=== PATIENT | female | born 1955 | race African-American/Black ===

== ENCOUNTER 2023-02-27 15:20 | Emergency (ER) | payer MEDICARE ==
[2023-02-27 15:29] VITALS: BP 139/74
[2023-02-27 16:51] LABS: HCT - HEMATOCRIT 36.4 % (37.0-47.0); HGB - HEMOGLOBIN 11.9 g/dL (12.0-16.0)
--- NOTE | 2023-02-27 17:00 | ED Physician Documentation ---
History of Present Illness - Stated complaint Stated Complaint: FEMALE - Chief complaint Chief Complaint: General - History obtained from History obtained from: Patient - Additonal information Additional information: 67-year-old woman on aspirin and Xarelto who has had a bleeding hemorrhoid for 6 days. Its not particularly painful and it only really bleeds when she has a bowel movement or micturates, but she started to feel little weak from it. PD PAST MEDICAL HISTORY - Allergies Allergies/Adverse Reactions: Allergies Allergy/AdvReac Type Severity Reaction Status Date / Time No Known Drug Allergies Allergy Verified 02/27/23 15:24 PD ED PE NORMAL - Vitals Vital signs reviewed: Yes - General General: Alert and oriented X 3, No acute distress - Abdomen Abdomen: Non tender - Rectal Rectal: Other (She does have a couple of large hemorrhoids with sequela of active bleeding but they do not look thrombosed. This was done with Alana DAVE present and chaperoning.) - Neuro Neuro: Alert and oriented X 3, Normal speech Results - Vitals Vitals: Vital Signs - 24 hr 02/27/23 15:24 Temperature 36.8 C Heart Rate 68 Respiratory 16 Rate Blood Pressure 139/74 H O2 Saturation 100 Oxygen O2 Source Room air - Labs Labs: Laboratory Tests 02/27/23 16:48 Hgb 11.9 L Hct 36.4 L PD Medical Decision Making - ED course ED course: 67-year-old woman who is anticoagulated presents with bleeding hemorrhoids. H&H is reassuring. Case discussed with Dr. Cramer who recommends follow-up in clinic for evaluation for banding. Departure - Departure Disposition: Home, Self Care Clinical Impression: Bleeding hemorrhoids Condition: Good Record reviewed to determine appropriate education?: Yes Instructions: ED Hematochezia Stable Follow-Up: [facility] [Provider Group] Comments: Your blood counts are reassuring and not dangerous. You should follow-up in the clinic, call Thursday for an appointment. They will assess you and may want you to stop your Xarelto prior to a trip to the operating room for banding of the hemorrhoids. Return if worse. Forms: PCP List
== END 2023-02-27 17:11 | disposition home or self-care (01) ==
LOC: ED 15:20
DX: K64.9 Unspecified hemorrhoids (principal)
CPT/HCPCS: 36415; 85014; 85018; 99283

== ENCOUNTER 2024-08-19 13:30 | Observation (INO) ==
--- NOTE | 2024-08-19 15:27 | XRAY Report ---
PROCEDURE: XR Chest 1V INDICATIONS: dizziness, sob TECHNIQUE: One view of the chest was acquired. COMPARISON: None. FINDINGS: Surgical changes and devices: None. Lungs and pleura: No pleural effusions or pneumothorax. No consolidation. Mediastinum: Aortic arch calcifications. Mediastinal contours otherwise appear normal. Heart size i s normal. Bones and chest wall: No suspicious bony lesions. Overlying soft tissues appear unremarkable. IMPRESSION: No acute cardiothoracic process. Reviewed by: Jigar Aranda MD on 08/19/2024 3:25 PM PST Approved by: Jigar Aranda MD on 08/19/2024 3:25 PM PST Station ID: [id number]
[2024-08-19 15:32] LABS: BASOPHILS % (AUTO) 0.4 %; EOSINOPHILS % (AUTO) 0.7 %; HCT - HEMATOCRIT 38.7 % (37.0-47.0); HGB - HEMOGLOBIN 12.4 g/dL (12.0-16.0); LYMPHOCYTES % (AUTO) 17.8 %; MEAN CORPUSCULAR HEMOGLOBIN 34.3 pg (27.0-31.0); MEAN CORPUSCULAR VOLUME 107.2 fL (81.0-99.0); MEAN PLATELET VOLUME 10.1 fL (7.9-10.8); MONOCYTES # (AUTO) 0.5 10^3/uL (0.0-1.0); MONOCYTES % (AUTO) 9.7 %; NEUTROPHILS # (AUTO) 3.8 10^3/uL (1.5-6.6); PLT - PLATELET COUNT 195 10^3/uL (130-450); RED BLOOD COUNT 3.61 10^6/uL (4.20-5.40); RED CELL DISTRIBUTION WIDTH 14.2 % (12.0-15.0); WHITE BLOOD COUNT 5.3 x10^3/uL (4.8-10.8)
--- NOTE | 2024-08-19 15:39 | ED Physician Documentation ---
History of Present Illness Stated complaint Stated Complaint: DIZZY,UNWELL Chief complaint Chief Complaint: Neuro History obtained from History obtained from: Patient History of Present Illness Timing: Prior to arrival Additonal information Additional information: Patient is a 62-year-old female presenting to the emergency department with feeling dizzy and nauseous with some diarrhea going on the last 2 to 3 days. Patient has past medical history of hypertension type 2 diabetes history of stroke and coronary artery disease. Patient symptoms seemed worse this morning she notes she fell over no injuries after trying to get up and feeling very dizzy with her symptoms. She denies ever having symptoms this severe before. She has a history of CVA with chronic left upper extremity weakness. Meds/Allgy Home Medications Ambulatory Orders Medication Instructions Recorded Confirmed amlodipine 10 mg tablet mg 08/19/24 atorvastatin 20 mg tablet mg 08/19/24 gabapentin 300 mg capsule mg 08/19/24 hydralazine 25 mg tablet mg 08/19/24 lisinopril 40 mg tablet mg 08/19/24 metformin 1,000 mg tablet mg 08/19/24 methotrexate sodium 2.5 mg tablet mg 08/19/24 metoprolol tartrate 100 mg tablet mg 08/19/24 pantoprazole 40 mg tablet,delayed mg PO 08/19/24 release rivaroxaban 10 mg tablet (Xarelto) mg 08/19/24 sarilumab 200 mg/1.14 mL mg subcut 08/19/24 subcutaneous syringe (Kevzara) sitagliptin phosphate 100 mg mg 08/19/24 tablet (Januvia) Allergies Allergies Allergy/AdvReac Type Severity Reaction Status Date / Time No Known Drug Allergies Allergy Verified 08/19/24 13:41 [facility] Medical History Medical History (Updated 08/19/24 @ 17:27 by Kelvin Vee MD) Diabetes mellitus type 2, controlled Hyperlipidemia Rheumatoid arthritis Hypertension CVA (cerebral vascular accident) Social History Social History Smoking Status: Smoker current status unk Relationship: Do you feel safe in your home environment?: Yes Suffered physical, verbal, emotional, or financial abuse?: No POLST Patient has POLST: No Exam Constitutional normal general appearance HENMT normocephalic and head/scalp atraumatic Eyes PERRL, EOMs intact bilaterally and conjunctivae normal Neck/C-Spine visual inspection normal Lymph no lymphadenopathy noted Chest inspection of chest normal Respiratory breath sounds equal bilaterally and normal respiratory effort Results Vitals Vitals: Vital Signs - 24 hr 08/19/24 13:41 08/19/24 15:23 08/19/24 15:59 Temperature 36.5 C Temperature Source Tympanic Pulse Rate 87 84 Pulse Rate [Sitting] 82 Pulse Rate [Standing] 98 Pulse Rate [Supine] 92 Respiratory Rate 18 20 Blood Pressure 124/76 116/84 Blood Pressure [Sitting] 133/68 H Blood Pressure [Standing] 136/66 H Blood Pressure [Supine] 106/71 O2 Saturation 99 98 O2 Source Room air Room air Pain Intensity 0 0 Oxygen O2 Source Room air Labs Labs: Laboratory Tests 08/19/24 15:26 WBC 5.3 RBC 3.61 L Hgb 12.4 Hct 38.7 MCV 107.2 H MCH 34.3 H MCHC 32.0 RDW 14.2 Plt Count 195 MPV 10.1 Neut # (Auto) 3.8 Lymph # (Auto) 1.0 L Ed[place] # (Auto) 0.5 Eos # (Auto) 0.0 Baso # (Auto) 0.0 Absolute Nucleated RBC 0.00 Nucleated RBC % 0.0 Sodium 136 Potassium 3.9 Chloride 107 Carbon Dioxide 22 Anion Gap 7.0 BUN 19 Creatinine 1.1 Estimated GFR (MDRD) 60 L Glucose 106 H Calcium 9.3 Magnesium < 0.5 L* Total Bilirubin 0.5 AST 19 ALT 12 Alkaline Phosphatase 33 L Total Protein 6.2 L Albumin 4.1 Globulin 2.1 Albumin/Globulin Ratio 2.0 Lipase < 10 L PD Medical Decision Making ED course Complexity details: reviewed old records and reviewed results ED course: Patient is a 68-year-old female presenting to the emergency department with generalized feeling of unwell she notes that has been going on for a few days accompanied with dizziness only with standing and feeling unstable when walking. She notes she feels as if she is going to fall over. She notes prior to coming in she had an episode where she lost her balance and fell over. She does describe some room spinning but no lightheadedness issues with her symptoms. She has some nausea vomiting and diarrhea that this morning and it caused worsening feelings of generalized unwell. Vitals here in the emergency department are reassuring patient is normotensive afebrile nontachycardic. She has a history of hypertension diabetes coronary artery disease and weakness associated with her symptoms. Physical exam shows no new focal deficit patient denies any symptoms at this time just generalized fatigue and feeling unwell. EKG stable here in the emergency department no prolonged QTc. Labs remarkable here for significant hypomagnesemia less than 0.5. This could be secondary to patient's nausea or vomiting and diarrhea. She notes she previously took magnesium few years ago. No history of alcohol use and her potassium levels and other electrolytes are stable here in the ED. Magnesium and fluids started here in the ED orthostatics were negative. I did discuss with on-call hospitalist Dr. Rojas who is agreement to except patient at this time. We did discuss concern for possible ischemia or stroke given dizziness symptoms but they are not occurring at this time and patient only has feelings of general unwell as opposed to findings consistent with stroke at this time. Patient notes she is feeling a little better after fluids and magnesium were begun here in the ED. Discharge Plan Discharge Patient Disposition: 65 [facility] DC/Xfer Condition: Stable Clinical Impression: Hypomagnesemia, Dizziness, Intermittent lightheadedness
[2024-08-19 15:47] LABS: ALBUMIN 4.1 g/dL (3.2-5.5); ALKALINE PHOSPHATASE 33 IU/L (42-121); ALT ALANINE AMINOTRANSFERASE 12 IU/L (10-60); AST ASPARTATE AMINOTRANSFERASE 19 IU/L (10-42); BILIRUBIN,TOTAL 0.5 mg/dL (0.2-1.0); BUN - BLOOD UREA NITROGEN 19 mg/dL (6-20); CALCIUM 9.3 mg/dL (8.5-10.3); CARBON DIOXIDE - CO2 22 mmol/L (21-32); CHLORIDE 107 mmol/L (101-111); CREATININE 1.1 mg/dL (0.6-1.3); GFR - MDRD 60 (>89); GLUCOSE 106 mg/dL (74-104); POTASSIUM 3.9 mmol/L (3.5-4.5); SODIUM 136 mmol/L (135-145); TOTAL PROTEIN 6.2 g/dL (6.4-8.9)
[2024-08-19 15:50] LABS: MAGNESIUM < 0.5 mg/dL (1.7-2.3)
--- NOTE | 2024-08-19 16:32 | ED Physician Documentation ---
ED Addendum Addendum Addendum: She was difficult for IV access and the nurse asked me to place an IV. I placed a long 22-gauge IV in the right cephalic vein after real-time ultrasound guidance and ChloraPrep which flushed and milton well. I was not otherwise involved in this patient's care. Discharge Plan Discharge Patient Disposition: 65 [facility] DC/Xfer Condition: Stable Clinical Impression: Hypomagnesemia, Dizziness, Intermittent lightheadedness Print Language: Ecuadorean
[2024-08-19] MEDS: LACTATED RINGERS 1,000 ML IV STA (16:33)
[2024-08-19] MEDS: MAGNESIUM SULFATE 2 GRAM 2 GM/50 ML BAG IV ONE (16:33)
--- NOTE | 2024-08-19 16:39 | HISTORY & PHYSICAL EXAMINATION ---
Chief Complaint Chief Complaint Chief Complaint: Dizziness History of Present Illness Admitted From Admitted From:: [facility] History Obtained From Records Reviewed: Yes History obtained from: Patient, patient's son at bedside Exam Limitations: None History of Present Illness HPI Comment/Other: Patient is a 68-year-old female with a history of CVA x 2 with residual right- sided weakness, on Xarelto, diabetes mellitus who presents for dizziness, as well as a fall. She states that she has on and off dizziness. For the past 2 to 3 days, it has been a little bit worse. She states it is a constant feeling. Sometimes it is worsened by her standing up. She has been eating and drinking about the same amount. She has a history of loose bowel movements. She did have a larger loose bowel movement this morning. She described it as nonbloody. She has no abdominal pain. She was previously on magnesium supplementation, but has not been taking it for many years. Since being in the emergency room, she has been feeling better. She has no dizziness at the time of exam. At this time, she denies any fevers, chills, shortness of breath, chest pain. On admission, patient's blood pressure was 124/76, heart rate was 87, she is saturating 99% on room air, and was afebrile. CBC showed no leukocytosis. Her hemoglobin was stable around 12.4. BMP showed a normal creatinine of 1.1, her potassium was 3.9. Her glucose was 106. Her alkaline phosphatase was 33, her lipase was less than 10. Magnesium was found to be less than 0.5. A chest x- ray was done which showed no acute cardiothoracic process. A CT head is ordered, remains pending. She received 2 mg of magnesium. She also received a liter of IV fluids. Orthostatic vital signs are ordered, remain pending. Decision was made to admit her for hypomagnesemia, and closer monitoring of her electrolytes. She was placed in observation status. Meds/Allgy Home Medications Ambulatory Orders Medication Instructions Recorded Confirmed amlodipine 10 mg tablet mg 08/19/24 atorvastatin 20 mg tablet mg 08/19/24 gabapentin 300 mg capsule mg 08/19/24 hydralazine 25 mg tablet mg 08/19/24 lisinopril 40 mg tablet mg 08/19/24 metformin 1,000 mg tablet mg 08/19/24 methotrexate sodium 2.5 mg tablet mg 08/19/24 metoprolol tartrate 100 mg tablet mg 08/19/24 pantoprazole 40 mg tablet,delayed mg PO 08/19/24 release rivaroxaban 10 mg tablet (Xarelto) mg 08/19/24 sarilumab 200 mg/1.14 mL mg subcut 08/19/24 subcutaneous syringe (Kevzara) sitagliptin phosphate 100 mg mg 08/19/24 tablet (Januvia) Allergies Allergies Allergy/AdvReac Type Severity Reaction Status Date / Time No Known Drug Allergies Allergy Verified 08/19/24 13:41 [facility] Medical History Medical History (Updated 08/19/24 @ 17:27 by Kelvin Vee MD) Diabetes mellitus type 2, controlled Hyperlipidemia Rheumatoid arthritis Hypertension CVA (cerebral vascular accident) Social History Social History (Updated 08/19/24 @ 17:31 by Vicky Devine PA-C) Smoking Status: Smoker current status unk Relationship: Do you feel safe in your home environment?: Yes Suffered physical, verbal, emotional, or financial abuse?: No POLST Patient has POLST: Yes POLST Status: DNR Review of Systems Constitutional Reports: Fatigue, Malaise and Weakness; Denies: Fever, Chills, Diaphoresis, Night sweats, Changes in appetite or eating habits, Poor appetite, Weight gain or Weight loss Eyes Denies: Pain, Irritation, Amaurosis, Blurry vision, Floaters, Field loss or Vision loss Ears, nose, mouth, and throat Denies: Ear pain, Ear discharge, Hearing loss, Hearing aids, Tinnitus, Change in hearing, Nasal pain, Nose bleeds, Vertigo or Neck pain Cardiovascular Denies: Irregular heart rate, chest pain, palpitations, edema, swelling of feet/ankles, Syncope, lightheadedness or shortness of breath with exertion Respiratory Denies: Shortness of breath, Cough, Sputum production, Change in phlegm color, Wheezing or Apnea Gastrointestinal Reports: Diarrhea and Change in stool character; Denies: Abdominal pain, Abdominal distention, Nausea, Vomiting, Poor appetite, Bile emesis or Change in bowel habits Genitourinary Denies: Painful urination, Urinary frequency, Urinary urgency, Nocturia or Urinary incontinence Musculoskeletal Reports: Joint pain (chronic due to RA); Denies: Back pain, Neck pain, Extremity pain, Extremity swelling or Gout Integumentary/Breast Denies: Rash, Itching, Dryness, Redness, Skin pain or Skin tenderness Neurological Reports: General weakness and Dizziness; Denies: Headache, Focal weakness, Weakness in extremities, Numbness in extremities, Lack of coordination or Vertigo Psychiatric Denies: Depression, Anxiety, Mood swings, Panic attacks or Change in sleep pattern Endocrine Reports: Fatigue; Denies: Excessive urination, Excessive thirst, Polyphagia, Cold intolerance or Excessive sweating Hematologic/Lymphatic Denies: Anemia, Easy bruising or Petechiae Allergic/Immunologic Denies: Hives or Wheezing Prior Level of Functionality: Ambulates with walker. Lives in Assisted Living. Exam Constitutional normal general appearance, no apparent distress, average body habitus and no limitations HENMT normocephalic, head/scalp atraumatic, hearing grossly normal bilaterally, external ears normal and oropharynx normal Eyes PERRL, EOMs intact bilaterally, conjunctivae normal and no scleral icterus Lymph no lymphadenopathy noted and no lymphedema noted Chest inspection of chest normal Respiratory breath sounds equal bilaterally, normal respiratory effort, clear to auscultation bilaterally, no wheezes, no rales and no retractions Cardiovascular normal heart rate noted, regular rhythm noted, no gallop, no rub, no murmur and no JVD Gastrointestinal abdomen normal to inspection, abdomen soft to palpation, nontender to palpation and nondistended Genitourinary no CVA tenderness and bladder normal to palpation Back/Pelvis spine normal to inspection and no thoracic spine tenderness Extremities normal to inspection, normal to palpation, no tenderness and full ROM Neurology RUE 4/5 in strength, slight contracture noted, R hand with decreased change lead strength, RLE 5/5 in strength; LUE and LLE 5/5 in strength; no dysdiadokinesia or dysmetria noted Psychiatry mental status grossly normal, oriented x3, thought process normal and cooperative Skin skin color normal, no rash, no lesions and no ecchymosis noted Conclusion/Plan Problem List (1) Hypomagnesemia: Plan: Severe hypomagnesemia noted. IV magnesium ordered. Repeat pending for later. Replete as needed. Likely will need discharge on oral magnesium. (2) Intermittent lightheadedness: Plan: Patient with longstanding intermittent lightheadedness. Has large, loose bowel movements regularly. Dizziness has now resolved. Received IV fluids. Eating and drinking adequately. No dysmetria, dysdiadokinesia. Less likely cerebellar stroke. CT head ordered, no acute abnormalities noted. (3) Diabetes mellitus type 2, controlled: Plan: Continue low-dose sliding scale while inpatient, hypoglycemia protocol in place. Patient takes metformin and sitagliptin in the outpatient setting. Qualifiers: Diabetes mellitus complication status: with unspecified complications D iabetes mellitus penitentiary insulin use: without extermination inspector use Qualified Code(s): E11.8 - Type 2 diabetes mellitus with unspecified complications (4) Hyperlipidemia: Plan: Continue statin. Qualifiers: Hyperlipidemia type: unspecified Qualified Code(s): E78.5 - Hyperlipidemia, unspecified (5) Rheumatoid arthritis: Plan: Continue Kevzara once every 2 weeks in the outpatient setting, as well as [id number] mg once a week as prescribed. Qualifiers: Rheumatoid arthritis location: unspecified site Rheumatoid factor presence: unspecified presence Qualified Code(s): M06.9 - Rheumatoid arthritis, unspecified (6) Hypertension: Plan: Continue metoprolol, hydralazine, lisinopril, amlodipine. Qualifiers: Hypertension type: unspecified Qualified Code(s): I10 - Essential (primary) hypertension (7) CVA (cerebral vascular accident): Plan: Continue Xarelto, gabapentin, statin. Qualifiers: CVA mechanism: unspecified Qualified Code(s): I63.9 - Cerebral infarction, unspecified Lab Results Lab results reviewed: Yes 08/19/24 15:26 08/19/24 15:26 Diagnostic Imaging Results Diagnostic Imaging Results: positive Final report reviewed
[2024-08-19] MEDS ORDERED: SODIUM CHLORIDE FLUSH 0.9% 10 ML SYRINGE IVP PRN (17:49)
--- NOTE | 2024-08-19 17:54 | CT Report ---
PROCEDURE: CT Head WO INDICATIONS: fall on xarelto TECHNIQUE: Noncontrast 4.5 mm thick angled axial sections acquired from the foramen magnum to the vertex. For r adiation dose reduction, the following was used: automated exposure control, adjustment of mA and/or kV according to patient size. COMPARISON: None. FINDINGS: Image quality: Excellent. CSF spaces: Basal cisterns are patent. No extra-axial fluid collections. Ventricles are normal in size and shape. Brain: No midline shift. No intracranial masses or hemorrhage. Cyr-white matter interface is norm al. Remote right MCA territory infarct with encephalomalacia/gliosis. Skull and face: Calvarium and visualized facial bones are intact, without suspicious lesions. Sinuses: Visualized sinuses and mastoids are clear. IMPRESSION: No acute intracranial pathology. Reviewed by: Dane Painter MD on 08/19/2024 5:53 PM PST Approved by: Dane Painter MD on 08/19/2024 5:53 PM [facility] Station ID: [id number]
[2024-08-19] MEDS: INSULIN LISPRO 300 UNIT/3 ML PEN SUBQ SCH (18:53)
[2024-08-19] MEDS: MAGNESIUM SULFATE 2 GRAM 4 GM/100 ML BAG IV ONE (21:39)
[2024-08-19] MEDS: SODIUM CHLORIDE FLUSH 0.9% 10 ML SYRINGE IVP SCH (21:40)
[2024-08-19] MEDS ORDERED: METOPROLOL 5 MG/5 ML VIAL IVP PRN (22:13)
[2024-08-19] MEDS: MAGNESIUM OXIDE 400 MG TABLET PO SCH (22:35)
[2024-08-19 23:11] LABS: BILIRUBIN,URINE NEGATIVE (NEGATIVE); GLUCOSE, URINE (UA) NEGATIVE (NEGATIVE); KETONES,URINE (UA) NEGATIVE (NEGATIVE); LEUKOCYTE ESTERASE, URINE LARGE (NEGATIVE); NITRITE,URINE NEGATIVE (NEGATIVE); OCCULT BLOOD,URINE MODERATE (NEGATIVE); PROTEIN,URINE 30 mg/dL (NEGATIVE); UROBILINOGEN,URINE 0.2 (NORMAL) E.U./dL (NORMAL)
[2024-08-19 23:20] LABS: CLARITY,URINE SL. CLOUDY (CLEAR)
[2024-08-19 23:21] LABS: BACTERIA,URINE Many /HPF (None Seen); RBC,URINE TNTC /HPF (0-5); SQUAMOUS EPITHELIAL CELL,UR MANY Squamous (<= Few); TRICHOMONAS,URINE PRESENT (None Seen); WBC,URINE >25 /HPF (0-5)
[2024-08-20] MEDS: MAGNESIUM OXIDE 400 MG TABLET PO STA ×2 (00:24→04:14)
[2024-08-20] MEDS: METOPROLOL TARTRATE 25 MG TABLET PO STA (02:00)
[2024-08-20 03:10] LABS: HCT - HEMATOCRIT 33.8 % (37.0-47.0); HGB - HEMOGLOBIN 11.2 g/dL (12.0-16.0); MEAN CORPUSCULAR HEMOGLOBIN 34.5 pg (27.0-31.0); MEAN CORPUSCULAR HGB CONC 33.1 g/dL (32.0-36.0); RED BLOOD COUNT 3.25 10^6/uL (4.20-5.40); WHITE BLOOD COUNT 4.5 x10^3/uL (4.8-10.8)
[2024-08-20 03:24] LABS: CALCIUM 9.3 mg/dL (8.5-10.3); CREATININE 1.2 mg/dL (0.6-1.3); POTASSIUM 3.5 mmol/L (3.5-4.5)
[2024-08-20 03:29] LABS: MAGNESIUM 0.6 mg/dL (1.7-2.3)
[2024-08-20] MEDS: MAGNESIUM SULFATE 2 GRAM 2 GM/50 ML BAG IV ONE ×2 (06:50→10:55)
[2024-08-20 07:45] VITALS: O2SAT 97
[2024-08-20] MEDS: amLODIPine 5 MG TABLET PO SCH (08:27)
[2024-08-20] MEDS: MAGNESIUM OXIDE 400 MG TABLET PO ONE (08:28)
[2024-08-20] MEDS: METOPROLOL TARTRATE 50 MG TABLET PO SCH (08:28)
[2024-08-20] MEDS: GABAPENTIN 300 MG CAPSULE PO SCH (08:28)
[2024-08-20] MEDS: APIXABAN 2.5 MG TABLET PO SCH (08:29)
[2024-08-20] MEDS: PANTOPRAZOLE 40 MG TABLET PO SCH (08:31)
--- NOTE | 2024-08-20 09:08 | PHARMACY PROGRESS NOTE ---
Best Possible Medication History Admit Date and Time: 08/19/24 1631 Home Medications Medication Instructions Recorded Confirmed Type amlodipine 10 mg tablet 10 mg PO DAILY 08/19/24 08/20/24 History atorvastatin 20 mg tablet 20 mg PO QPM 08/19/24 08/20/24 History gabapentin 300 mg capsule 300 mg PO BID 08/19/24 08/20/24 History hydralazine 25 mg tablet 25 mg PO BID 08/19/24 08/20/24 History lisinopril 40 mg tablet 40 mg PO DAILY 08/19/24 08/20/24 History metformin 1,000 mg tablet 1,000 mg PO BIDWM 08/19/24 08/20/24 History methotrexate sodium 2.5 mg tablet 15 mg PO WE 08/19/24 08/20/24 History metoprolol tartrate 100 mg tablet 100 mg PO BID 08/19/24 08/20/24 History pantoprazole 40 mg tablet,delayed 40 mg PO DAILY 08/19/24 08/20/24 History release rivaroxaban 10 mg tablet (Xarelto) 10 mg PO DAILY 08/19/24 08/20/24 History sarilumab 200 mg/1.14 mL 200 mg subcut Q14D 08/19/24 08/20/24 History subcutaneous syringe (Kevzara) sitagliptin phosphate 100 mg 100 mg PO DAILY 08/19/24 08/20/24 History tablet (Januvia) ferrous sulfate 325 mg (65 mg 325 mg PO DAILY 08/20/24 08/20/24 History iron) tablet (FeroSul) loratadine 10 mg tablet 10 mg PO DAILY 08/20/24 08/20/24 History (Allerclear) omega 4-enf-uua-fish oil 100 2 cap PO DAILY 08/20/24 08/20/24 History mg-160 mg-1,000 mg capsule (Fish Oil) vitamin B complex (Balanced B-50 1 tab PO DAILY 08/20/24 08/20/24 History tablet) Processed by: Pharmacy Medications reviewed in ED?: No Medication History completed: Yes Patient Interview: Completed Secondary Source(s): Written medication list, Pharmacy records and Insurance records [facility] Statement: As the person ultimately responsible for medication therapy, providers are able to order a medication from an existing home medication list in [facility] via the "Reconcile Routine" prior to Confirmation of that medication by collection support specialist. Such practice is discouraged except when the physician, in their clinical judgment, deems that a medical need exists for a medication without regard to previous use.
[2024-08-20] MEDS: lisinopriL 20 MG TABLET PO SCH (10:02)
[2024-08-20] MEDS: hydrALAZINE 25 MG TABLET PO SCH (10:03)
[2024-08-20] MEDS ORDERED: MAGNESIUM SULFATE 1 GM/2 ML VIAL IVP STA (10:43)
--- NOTE | 2024-08-20 11:01 | Discharge Summary ---
"Discharge Summary Admit Date: 08/19/24 Discharge Date: 08/20/24 Discharging Provider: Dr. Vee Primary Care Provider: CHARLIE Hodge Code Status: Do Not Attempt Resuscitation Discharge Facility Name: [facility] DIAGNOSES Admission Diagnoses: Hypomagnesemia Intermittent lightheadedness Diabetes mellitus type 2, controlled Hyperlipidemia Rheumatoid arthritis Hypertension CVA x 2 in the past Discharge Diagnoses with Status of Each Condition: Hypomagnesemiareceived aggressive replacement, resolved. Will discharge her home on magnesium oxide 400 mg daily. Intermittent lightheadednesslikely due to above electrolyte disturbances versus borderline lownormal blood pressures. I have stopped her hydralazine. Advised to follow-up with the primary care physician in approximately 1 to 2 weeks to recheck her blood pressure. She may need more down titration of her antihypertensives. Type 2 diabetes mellituscontinue metformin and sitagliptin. Hyperlipidemiacontinue statin. Rheumatoid arthritiscontinue Kevzara, methotrexate. Hypertensioncontinue metoprolol, lisinopril, amlodipine at this time. I have stopped hydralazine. She may require stopping of amlodipine as well as she has been running low normal while being here. CVAcontinue Xarelto, gabapentin, statin. HPI History of Present Illness: Patient is a 68-year-old female with a history of CVA x 2 with residual right- sided weakness, on Xarelto, diabetes mellitus who presents for dizziness, as well as a fall. She states that she has on and off dizziness. For the past 2 to 3 days, it has been a little bit worse. She states it is a constant feeling. Sometimes it is worsened by her standing up. She has been eating and drinking about the same amount. She has a history of loose bowel movements. She did have a larger loose bowel movement this morning. She described it as nonbloody. She has no abdominal pain. She was previously on magnesium supplementation, but has not been taking it for many years. Since being in the emergency room, she has been feeling better. She has no dizziness at the time of exam. At this time, she denies any fevers, chills, shortness of breath, chest pain. On admission, patient's blood pressure was 124/76, heart rate was 87, she is saturating 99% on room air, and was afebrile. CBC showed no leukocytosis. Her hemoglobin was stable around 12.4. BMP showed a normal creatinine of 1.1, her potassium was 3.9. Her glucose was 106. Her alkaline phosphatase was 33, her lipase was less than 10. Magnesium was found to be less than 0.5. A chest x- ray was done which showed no acute cardiothoracic process. A CT head is ordered, remains pending. She received 2 mg of magnesium. She also received a liter of IV fluids. Orthostatic vital signs are ordered, remain pending. Decision was made to admit her for hypomagnesemia, and closer monitoring of her electrolytes. She was placed in observation status. CONSULTS | PROCEDURES Consultations: - Procedures: CT head HOSPITAL COURSE Hospital Course: Patient is a 68-year-old female with a history of 2 CVAs who presented with intermittent dizziness, as well as a fall. She was found to have very low magnesium, less than 0.5. This was aggressively repleted. This improved to 1.7 on discharge. Will continue with oral magnesium on discharge. A CT head was also done, which did not show any acute bleed. Blood pressure was found to be low-normal while here. I have stopped her hydralazine. She may need further down titration of her antihypertensives. She is taking metoprolol, lisinopril, amlodipine currently. Advised to follow with a primary care doctor in the next 1 to 2 weeks, check her blood pressure at home. If it is running low, hold her amlodipine. Her son was at bedside when this was explained, and they both demonstrated understanding. Her dizziness has improved. She is eating and drinking well. She has had no more diarrhea or large bowel movements. Overall, she is safe to discharge back to her assisted living. ALLERGIES Allergies Allergy/AdvReac Type Severity Reaction Status Date / Time No Known Drug Allergies Allergy Verified 08/19/24 13:41 MEDICATIONS Ambulatory Orders Medication Instructions Recorded Confirmed amlodipine 10 mg tablet 10 mg PO DAILY 08/19/24 08/20/24 atorvastatin 20 mg tablet 20 mg PO QPM 08/19/24 08/20/24 gabapentin 300 mg capsule 300 mg PO BID 08/19/24 08/20/24 hydralazine 25 mg tablet 25 mg PO BID 08/19/24 08/20/24 lisinopril 40 mg tablet 40 mg PO DAILY 08/19/24 08/20/24 metformin 1,000 mg tablet 1,000 mg PO BIDWM 08/19/24 08/20/24 methotrexate sodium 2.5 mg tablet 15 mg PO WE 08/19/24 08/20/24 metoprolol tartrate 100 mg tablet 100 mg PO BID 08/19/24 08/20/24 pantoprazole 40 mg tablet,delayed 40 mg PO DAILY 08/19/24 08/20/24 release rivaroxaban 10 mg tablet (Xarelto) 10 mg PO DAILY 08/19/24 08/20/24 sarilumab 200 mg/1.14 mL 200 mg subcut Q14D 08/19/24 08/20/24 subcutaneous syringe (Kevzara) sitagliptin phosphate 100 mg 100 mg PO DAILY 08/19/24 08/20/24 tablet (Januvia) ferrous sulfate 325 mg (65 mg 325 mg PO DAILY 08/20/24 08/20/24 iron) tablet (FeroSul) loratadine 10 mg tablet 10 mg PO DAILY 08/20/24 08/20/24 (Allerclear) magnesium oxide 400 mg PO DAILY #30 caps 08/20/24 omega 6-tfe-rwq-fish oil 100 2 cap PO DAILY 08/20/24 08/20/24 mg-160 mg-1,000 mg capsule (Fish Oil) vitamin B complex (Balanced B-50 1 tab PO DAILY 08/20/24 08/20/24 tablet) PHYSICAL EXAM AT DISCHARGE General Appearance: positive No acute distress and Alert Eyes Bilateral: positive Normal inspection and PERRL ENT: positive ENT inspection nml, Pharynx nml and No signs of dehydration Neck: positive Nml inspection, Thyroid nml and No JVD Respiratory: positive Chest non-tender, No respiratory distress and Breath sounds nml; negative Wheezes, Rales or Rhonchi Cardiovascular: positive No murmur and Irregularly irregular; negative Tachycardia Peripheral Pulses: positive 2+ Abdomen: positive Non-tender; negative Rebound, Hepatomegaly, Splenomegaly, Mass or Abnml bowel sounds Back: positive Nml inspection; negative CVA tenderness (R) or CVA tenderness (L) Skin: positive Color nml and No rash; negative Dry or Pallor Extremities: positive Non-tender and No pedal edema Neurologic/Psychiatric: positive Oriented x3 and Mood/affect nml LABS 08/20/24 03:08/20/24 03:05 DIAGNOSTIC IMAGING Diagnostic Imaging Results: Final report reviewed QUALITY (Female Hip Fx Only) Was patient sent home on osteoporosis medication?: No FOLLOW UP Follow Up: Follow up with primary care physician. TIME SPENT Time Spent in Discharge (Minutes): 35 Discharge Plan Discharge Patient Disposition: 06 Home Health Service Condition: Stable Prescriptions: New magnesium oxide 400 mg magnesium capsule 400 mg PO DAILY Qty: 30 0RF Continued atorvastatin 20 mg tablet 20 mg PO QPM Patient Comments: TAKE 1 TABLET BY MOUTH EVERY DAY metoprolol tartrate 100 mg tablet 100 mg PO BID methotrexate sodium 2.5 mg tablet 15 mg PO WE Patient Comments: TAKE 6 TABLETS BY MOUTH 1 TIME A WEEK amlodipine 10 mg tablet 10 mg PO DAILY Patient Comments: TAKE 1 TABLET BY MOUTH EVERY DAY pantoprazole 40 mg tablet,delayed release (DR/EC) 40 mg PO DAILY metformin 1,000 mg tablet 1,000 mg PO BIDWM gabapentin 300 mg capsule 300 mg PO BID lisinopril 40 mg tablet 40 mg PO DAILY Patient Comments: TAKE 1 TABLET BY MOUTH EVERY DAY Januvia 100 mg tablet 100 mg PO DAILY Patient Comments: TAKE 1 TABLET BY MOUTH EVERY DAY Xarelto 10 mg tablet 10 mg PO DAILY Patient Comments: TAKE 1 TABLET BY MOUTH EVERY DAY Kevzara 200 mg/1.14 mL syringe 200 mg SUBCUT Q14D Patient Comments: INJECT 200 MG UNDER THE SKIN ONCE EVERY 2 WEEKS, TAKES ON FRIDAYS vitamin B complex [Balanced B-50] Tablet 1 tab PO DAILY loratadine [Allerclear] 10 mg tablet 10 mg PO DAILY ferrous sulfate [FeroSul] 325 mg (65 mg iron) tablet 325 mg PO DAILY Fish Oil 100-160-1,000 mg capsule 2 cap PO DAILY Discontinued hydralazine 25 mg tablet 25 mg PO BID Diet: Diabetic Health Concerns: You came in because you were feeling dizzy intermittently. You were found to have very low magnesium. We replaced it through your IV, as well as gave you some oral magnesium supplementation. I will be sending magnesium to your pharmacy, which I want you to take daily. While you were here, your blood pressure was found to be on the lower side. I have stopped your hydralazine. I would recheck your blood pressure at home, and if it continues to run low, AKA less than 110 for the top number, I would also hold your amlodipine. It will also be important for you to follow-up with a primary care doctor. I understand you have not really seen the one you were assigned to previously. Our sample case porter is going to follow-up with you, even after discharge, to make sure that you have an appointment set up with someone. We are glad your dizziness is improved. We are glad you are feeling better. Thank you for allowing us to take care of you. Print Language: Serbian Patient Instructions: Hypomagnesemia Dc Ch Stand Alone Forms: PCP List"
[2024-08-20] MEDS ORDERED: MAGNESIUM OXIDE 400 MG TABLET PO SCH (12:00)
[2024-08-20 13:07] VITALS: TEMP 97.9
[2024-08-20 14:16] VITALS: BP 102/57
[2024-08-20] MEDS ORDERED: ATORVASTATIN 10 MG TABLET PO SCH (21:00)
== END 2024-08-20 14:54 | disposition home health service (06) ==
LOC: ED 13:30 → MS2 13:30
PROVIDERS: ADMIT Internal Medicine; ATTEND Internal Medicine

== ENCOUNTER 2024-09-04 14:29 | Inpatient (IN) ==
[2024-09-04] MEDS: METOPROLOL 5 MG/5 ML VIAL IVP STA (15:53)
[2024-09-04] MEDS: diltiaZEM CD 240 MG CAPSULE PO STA (16:01)
[2024-09-04] MEDS: diltiaZEM INJ 5 MG/ML VIAL IVP STA (17:02)
[2024-09-04] MEDS: DIGOXIN 500 MCG/2 ML AMP IVP STA (17:53)
[2024-09-04] MEDS ORDERED: diltiaZEM INJ 5 MG/ML VIAL ONE (18:15)
[2024-09-04] MEDS: diltiaZEM INJ 125 MG in DEXTROSE 5% 100 ML IV STA (18:18)
[2024-09-04] MEDS ORDERED: AMIODARONE 150 MG/3 ML VIAL IV STA (19:23)
--- NOTE | 2024-09-04 19:23 | ED Physician Documentation ---
History of Present Illness Stated complaint Stated Complaint: DIZZY/FALL W/HEAD INJURY Chief complaint Chief Complaint: Trauma Hd/Nk History obtained from History obtained from: Patient, Family and EMS Additonal information Additional information: The patient is brought to the emergency department by EMS for chief complaint of losing her balance and falling, hitting her head. She is on Xarelto for A-fib and has a previous stroke with some mild residual left-sided deficits. She did not lose consciousness. She was hypotensive and route and tachycardic. Denies chest pain. No shortness of breath. She is feeling fairly well now and denies any other complaints at this time. She comes with a POLST that states "comfort measures only". Meds/Allgy Home Medications Ambulatory Orders Medication Instructions Recorded Confirmed amlodipine 10 mg tablet 10 mg PO DAILY 08/19/24 09/02/24 atorvastatin 20 mg tablet 20 mg PO QPM 08/19/24 09/02/24 gabapentin 300 mg capsule 300 mg PO BID 08/19/24 09/02/24 hydralazine 25 mg tablet 25 mg PO BID 08/19/24 09/02/24 lisinopril 40 mg tablet 40 mg PO DAILY 08/19/24 09/02/24 metformin 1,000 mg tablet 1,000 mg PO BIDWM 08/19/24 09/02/24 methotrexate sodium 2.5 mg tablet 15 mg PO WE 08/19/24 09/02/24 metoprolol tartrate 100 mg tablet 100 mg PO BID 08/19/24 09/02/24 pantoprazole 40 mg tablet,delayed 40 mg PO DAILY 08/19/24 09/02/24 release rivaroxaban 10 mg tablet (Xarelto) 10 mg PO DAILY 08/19/24 09/02/24 sarilumab 200 mg/1.14 mL 200 mg subcut Q14D 08/19/24 09/02/24 subcutaneous syringe (Kevzara) sitagliptin phosphate 100 mg 100 mg PO DAILY 08/19/24 09/02/24 tablet (Januvia) ferrous sulfate 325 mg (65 mg 325 mg PO DAILY 08/20/24 09/02/24 iron) tablet (FeroSul) loratadine 10 mg tablet 10 mg PO DAILY 08/20/24 09/02/24 (Allerclear) magnesium oxide 400 mg PO DAILY #30 caps 08/20/24 09/02/24 omega 3-wmv-yio-fish oil 100 2 cap PO DAILY 08/20/24 09/02/24 mg-160 mg-1,000 mg capsule (Fish Oil) vitamin B complex (Balanced B-50 1 tab PO DAILY 08/20/24 09/02/24 tablet) albuterol sulfate 90 mcg/actuation 1 puff inhalation QID PRN 08/30/24 09/02/24 aerosol inhaler (Ventolin HFA) shortness of breath or wheezing #6.7 grams doxycycline hyclate 100 mg capsule 100 mg PO BID #14 caps 08/30/24 09/02/24 Allergies Allergies Allergy/AdvReac Type Severity Reaction Status Date / Time tramadol Allergy Severe Unknown Verified 09/02/24 10:20 [facility] Medical History Medical History (Updated 09/02/24 @ 11:24 by Colby Leo, SAM, OCTAVIO, SINDY) Hodgkins lymphoma Bleeding hemorrhoids Social History Social History (Updated 09/02/24 @ 11:13 by Colby Leo, SAM, OCTAVIO, SINDY) Smoking Status: Current every day smoker If you are a former smoker, when did you quit? (Date/Year): not lately Number of Years Smoked: 40 How many cigarettes a day do you smoke? (20 cigarettes=1 Pk): 5 Do you dip or chew tobacco?: No Do you vape?: No Patient requests smoking cessation consult: No Initiate information on smoking cessation: No Living arrangement: Assisted living Marital Status: Support Person: Yes Relationship: Physical Activity: Walking Level: Assisted Home Mobility Equipment: Walker Do you feel safe in your home environment?: Yes Suffered physical, verbal, emotional, or financial abuse?: No ETOH Use: None Substance Use: cannabis (any form) Substance Use Details: Fisher Are you sexually active?: No Retired: Yes Service: No Are you following a diet prescribed by a doctor: No Are you following a special diet: No POLST Patient has POLST: Yes POLST Status: DNR (Patient reports during office visit) Exam Constitutional normal general appearance and no apparent distress HENMT normocephalic, head/scalp atraumatic, external nose normal and oral mucous membranes normal Eyes EOMs intact bilaterally Neck/C-Spine visual inspection normal and supple Respiratory breath sounds equal bilaterally, normal respiratory effort and clear to auscultation bilaterally Cardiovascular no edema Tachycardic rate, irregularly irregular Gastrointestinal abdomen normal to inspection, abdomen soft to palpation, nontender to palpation and nondistended Genitourinary no CVA tenderness Extremities normal to inspection Neurology Alert, grossly intact Psychiatry mental status grossly normal Skin skin color normal Results Vitals Vitals: Vital Signs - 24 hr 09/04/24 15:05 09/04/24 15:39 09/04/24 16:09 Pulse Rate 161 H 174 H 154 H Respiratory Rate 28 H 19 26 H Blood Pressure 91/47 L 93/61 81/66 L O2 Saturation 95 97 98 O2 Source Room air Pain Intensity 0 09/04/24 16:30 09/04/24 17:00 09/04/24 17:30 Pulse Rate 173 H 166 H 151 H Respiratory Rate 19 26 H 23 Blood Pressure 86/59 L 94/44 L 95/60 O2 Saturation 95 96 98 O2 Source Pain Intensity Oxygen O2 Source Room air Rads (name of study) Head CT: Relevant Findings:: Final report received and See rad report Interpretation: Unremarkable PD Medical Decision Making ED course Complexity details: reviewed old records, reviewed results, re-evaluated patient, considered differential, d/w patient, d/w family and d/w edi consultant ED course: The patient was evaluated upon arrival in the emergency department and found to be in atrial fibrillation with rapid ventricular response. Unfortunately, she was also hypotensive, with systolics ranging from the 70s to the 90s. However, complicating the situation was the fact that the patient had a POLST that stated comfort measures, but also seem to want some degree of intervention, and her son was also desirous of some management of the patient's condition. The patient was given most of a liter of IV fluid but was a very hard stick, and so we only had a 22-gauge IV. Because of the patient's comfort measure status, and because we had not had a chance to try to get her rate under control, a central line was not immediately placed. The patient was initially treated with an oral dose of Cardizem 240 mg and a small dose of IV Lopressor 5 mg. She is already on metoprolol 100 mg twice daily. Unfortunately, this really did not change the patient's heart rate at all. She was then given 15 mg of Cardizem, as she had maintained her systolic blood pressure in the 90s for some time. She did drop briefly into the 80s after the Cardizem but came back up. Her heart rate was still ranging 130s to 170. She was then given an IV dose of diltiazem digoxin 250 mcg, which did bring her heart rate down more to the 120s to 160-adela. However, she did not slow down much more than this. I did go in and speak with the patient and her son with regard to her condition and stated that they were either going to have to go with truly comfort measures or we were going to need to be able to expand to a better line, which would mean a central line, and placed the patient on a drip and possibly admit to the hospital or transfer to a center with cardiology. The patient seemed unsure of what she wanted to do but the son felt that we should proceed with line placement and more aggressive measures. Subclavian central line was placed as above. Chest x-ray following this was unremarkable for any pathology and showed the line to be in good placement. The patient was placed on a diltiazem drip and despite going up to 15 mg/h, achieved only slight improvement in her heart rate. I spoke with Dr. Boone of cardiology at [facility] and he stated that the only other recommendation he can make would be to bolus the patient with 150 mg of amiodarone every over [address] her on a 1 mg/min drip. I did order this. The patient showed a little bit of improvement and that she was mostly in the 130s to 150s for her heart rate. She maintained a systolic blood pressure mostly in the 90s though occasionally going up to around 100. Her head CT was unremarkable. EKG showed atrial fibrillation with rapid ventricular response. Laboratory studies pending at this time. At this point, we are still trying to get the patient's heart rate under control and Dr. Boone has also requested that we evaluate the patient with a CT angiogram of the chest to see if she has a PE. The patient does not have any infectious symptoms and I do not believe th at she is septic. At this point in time, we are exploring options including possibly admitting to our hospital but it will depend how the patient does. Patient signed out to Dr. Pinedo at change of shift, pending reevaluation and final disposition. Discharge Plan Discharge Prescriptions: No Action atorvastatin 20 mg tablet 20 mg PO QPM Patient Comments: TAKE 1 TABLET BY MOUTH EVERY DAY metoprolol tartrate 100 mg tablet 100 mg PO BID hydralazine 25 mg tablet 25 mg PO BID methotrexate sodium 2.5 mg tablet 15 mg PO WE Patient Comments: TAKE 6 TABLETS BY MOUTH 1 TIME A WEEK amlodipine 10 mg tablet 10 mg PO DAILY Patient Comments: TAKE 1 TABLET BY MOUTH EVERY DAY pantoprazole 40 mg tablet,delayed release (DR/EC) 40 mg PO DAILY metformin 1,000 mg tablet 1,000 mg PO BIDWM gabapentin 300 mg capsule 300 mg PO BID lisinopril 40 mg tablet 40 mg PO DAILY Patient Comments: TAKE 1 TABLET BY MOUTH EVERY DAY Januvia 100 mg tablet 100 mg PO DAILY Patient Comments: TAKE 1 TABLET BY MOUTH EVERY DAY Xarelto 10 mg tablet 10 mg PO DAILY Patient Comments: TAKE 1 TABLET BY MOUTH EVERY DAY Kevzara 200 mg/1.14 mL syringe 200 mg SUBCUT Q14D Patient Comments: INJECT 200 MG UNDER THE SKIN ONCE EVERY 2 WEEKS, TAKES ON FRIDAYS vitamin B complex [Balanced B-50] Tablet 1 tab PO DAILY loratadine [Allerclear] 10 mg tablet 10 mg PO DAILY ferrous sulfate [FeroSul] 325 mg (65 mg iron) tablet 325 mg PO DAILY Fish Oil 100-160-1,000 mg capsule 2 cap PO DAILY magnesium oxide 400 mg magnesium capsule 400 mg PO DAILY Qty: 30 0RF doxycycline hyclate 100 mg capsule 100 mg PO BID Qty: 14 0RF albuterol sulfate [Ventolin HFA] 90 mcg/actuation HFA aerosol inhaler 1 puff inhalation QID PRN (Reason: shortness of breath or wheezing) Qty: 6.7 0RF Print Language: Romansh Stand Alone Forms: PCP List
[2024-09-04] MEDS: AMIODARONE 150 MG/100 ML 100 ML IV SCH (19:46)
[2024-09-04 20:27] LABS: BASOPHILS % (AUTO) 0.1 %; EOSINOPHILS % (AUTO) 0.1 %; HCT - HEMATOCRIT 27.5 % (37.0-47.0); HGB - HEMOGLOBIN 9.2 g/dL (12.0-16.0); LYMPHOCYTES % (AUTO) 10.4 %; MEAN CORPUSCULAR HEMOGLOBIN 34.2 pg (27.0-31.0); MEAN CORPUSCULAR HGB CONC 33.5 g/dL (32.0-36.0); MEAN CORPUSCULAR VOLUME 102.2 fL (81.0-99.0); MEAN PLATELET VOLUME 9.5 fL (7.9-10.8); MONOCYTES # (AUTO) 0.7 10^3/uL (0.0-1.0); NEUTROPHILS # (AUTO) 7.9 10^3/uL (1.5-6.6); NEUTROPHILS % (AUTO) 81.8 %; PLT - PLATELET COUNT 243 10^3/uL (130-450); RED BLOOD COUNT 2.69 10^6/uL (4.20-5.40); RED CELL DISTRIBUTION WIDTH 14.4 % (12.0-15.0); WHITE BLOOD COUNT 9.6 x10^3/uL (4.8-10.8)
[2024-09-04] MEDS: AMIODARONE 360 MG/200 ML 200 ML IV SCH (20:30)
--- NOTE | 2024-09-04 20:33 | CT Report ---
PROCEDURE: CT Head WO INDICATIONS: fall/head inj TECHNIQUE: Noncontrast 4.5 mm thick angled axial sections acquired from the foramen magnum to the vertex. For r adiation dose reduction, the following was used: automated exposure control, adjustment of mA and/or kV according to patient size. COMPARISON: CT head 08/19/2024. FINDINGS: Image quality: Excellent. CSF spaces: Basal cisterns are patent. No extra-axial fluid collections. Ventricles are symmetric in size and shape. Brain: No midline shift. No intracranial masses or hemorrhage. Areas of chronic encephalomalacia ar e again seen in the superior cerebellar and right frontoparietal region related to remote prior infar cts, unchanged. Hypodensities in the subcortical and periventricular white matter are most commonly s een in setting of chronic microvascular ischemic changes. Age-related cerebral and cerebellar volume loss is seen. Intracranial vascular calcifications are noted in the internal carotid arteries. Skull and face: Calvarium and visualized facial bones are intact, without suspicious lesions. Sinuses: Visualized sinuses and mastoids are clear. IMPRESSION: No acute intracranial pathology. Reviewed by: Jarett Shelton MD on 09/04/2024 8:32 PM PST Approved by: Jarett Shelton MD on 09/04/2024 8:32 PM PST Station ID: [id number]
--- NOTE | 2024-09-04 20:36 | XRAY Report ---
PROCEDURE: XR Chest for Line Placement INDICATIONS: central line TECHNIQUE: One view of the chest was acquired. COMPARISON: Chest radiographs 08/30/2024. FINDINGS: Surgical changes and devices: Right subclavian central venous catheter is seen with catheter tip pro jecting to the region of the lower superior vena cava. Lungs and pleura: No pleural effusions or pneumothorax. No consolidation. Mediastinum: Cardiac silhouette is enlarged. Bones and chest wall: No suspicious bony lesions. Overlying soft tissues appear unremarkable. IMPRESSION: Right subclavian catheter in satisfactory position. No pneumothorax. Reviewed by: Jarett Shelton MD on 09/04/2024 8:34 PM PST Approved by: Jarett Shelton MD on 09/04/2024 8:34 PM PST Station ID: [id number]
[2024-09-04 20:43] LABS: ALBUMIN 2.9 g/dL (3.2-5.5); ALBUMIN/GLOBULIN RATIO 1.2 (1.0-2.2); ALKALINE PHOSPHATASE 33 IU/L (42-121); ALT ALANINE AMINOTRANSFERASE 17 IU/L (10-60); AST ASPARTATE AMINOTRANSFERASE 15 IU/L (10-42); BILIRUBIN,TOTAL 0.6 mg/dL (0.2-1.0); BUN - BLOOD UREA NITROGEN 58 mg/dL (6-20); CALCIUM 8.4 mg/dL (8.5-10.3); CARBON DIOXIDE - CO2 19 mmol/L (21-32); CHLORIDE 105 mmol/L (101-111); GFR - MDRD 30 (>89); GLUCOSE 189 mg/dL (74-104); POTASSIUM 4.5 mmol/L (3.5-4.5); SODIUM 135 mmol/L (135-145); TOTAL PROTEIN 5.4 g/dL (6.4-8.9)
[2024-09-04 20:46] LABS: LIPASE < 10 U/L (11-82)
[2024-09-04 21:29] LABS: PHOSPHORUS 3.9 mg/dL (2.5-5.0)
--- NOTE | 2024-09-04 21:31 | HISTORY & PHYSICAL EXAMINATION ---
Chief Complaint Chief Complaint Chief Complaint: Dizziness with fall History of Present Illness Admitted From Admitted From:: [facility] History Obtained From History obtained from: Patient interview History of Present Illness HPI Comment/Other: 68-year-old female PMH significant for CVA X2, residual left-sided weakness, on Xarelto, diabetes mellitus on oral antidiabetics who presents with dizziness and fall. She did not lose consciousness, was noted to be hypotensive and tachycardic on EMS arrival. Denies fever, chills, chest pain, abdominal pain, urinary abnormalities. She has a POLST that states comfort measures only, but when interviewed she states that she would still want full treatment with the exception of CPR. In the ER, multiple modalities were attempted to control her heart rate including IV metoprolol, IV diltiazem, IV fluids, IV amiodarone, IV digoxin all without effect. Cardiology was contacted by ER provider, they recommended amiodarone drip and consideration for CTA chest. Hospitalist was contacted for admission for A-fib RVR refractory to multimodal therapy Meds/Allgy Home Medications Ambulatory Orders Medication Instructions Recorded Confirmed amlodipine 10 mg tablet 10 mg PO DAILY 08/19/24 09/02/24 atorvastatin 20 mg tablet 20 mg PO QPM 08/19/24 09/02/24 gabapentin 300 mg capsule 300 mg PO BID 08/19/24 09/02/24 hydralazine 25 mg tablet 25 mg PO BID 08/19/24 09/02/24 lisinopril 40 mg tablet 40 mg PO DAILY 08/19/24 09/02/24 metformin 1,000 mg tablet 1,000 mg PO BIDWM 08/19/24 09/02/24 methotrexate sodium 2.5 mg tablet 15 mg PO WE 08/19/24 09/02/24 metoprolol tartrate 100 mg tablet 100 mg PO BID 08/19/24 09/02/24 pantoprazole 40 mg tablet,delayed 40 mg PO DAILY 08/19/24 09/02/24 release rivaroxaban 10 mg tablet (Xarelto) 10 mg PO DAILY 08/19/24 09/02/24 sarilumab 200 mg/1.14 mL 200 mg subcut Q14D 08/19/24 09/02/24 subcutaneous syringe (Kevzara) sitagliptin phosphate 100 mg 100 mg PO DAILY 08/19/24 09/02/24 tablet (Januvia) ferrous sulfate 325 mg (65 mg 325 mg PO DAILY 08/20/24 09/02/24 iron) tablet (FeroSul) loratadine 10 mg tablet 10 mg PO DAILY 08/20/24 09/02/24 (Allerclear) magnesium oxide 400 mg PO DAILY #30 caps 08/20/24 09/02/24 omega 5-fen-zyl-fish oil 100 2 cap PO DAILY 08/20/24 09/02/24 mg-160 mg-1,000 mg capsule (Fish Oil) vitamin B complex (Balanced B-50 1 tab PO DAILY 08/20/24 09/02/24 tablet) albuterol sulfate 90 mcg/actuation 1 puff inhalation QID PRN 08/30/24 09/02/24 aerosol inhaler (Ventolin HFA) shortness of breath or wheezing #6.7 grams doxycycline hyclate 100 mg capsule 100 mg PO BID #14 caps 08/30/24 09/02/24 Allergies Allergies Allergy/AdvReac Type Severity Reaction Status Date / Time tramadol Allergy Severe Unknown Verified 09/02/24 10:20 [facility] Medical History Medical History (Updated 09/04/24 @ 21:25 by Cesar Pérez DNP) Hodgkins lymphoma Bleeding hemorrhoids Social History Social History (Updated 09/02/24 @ 11:13 by Colby Leo DNP, SALES TRAINING MANAGER, PLACEMENT INTERVIEWER) Smoking Status: Current every day smoker If you are a former smoker, when did you quit? (Date/Year): not lately Number of Years Smoked: 40 How many cigarettes a day do you smoke? (20 cigarettes=1 Pk): 5 Do you dip or chew tobacco?: No Do you vape?: No Patient requests smoking cessation consult: No Initiate information on smoking cessation: No Living arrangement: Assisted living Marital Status: Support Person: Yes Relationship: Physical Activity: Walking Level: Assisted Home Mobility Equipment: Walker Do you feel safe in your home environment?: Yes Suffered physical, verbal, emotional, or financial abuse?: No ETOH Use: None Substance Use: cannabis (any form) Substance Use Details: [place] Are you sexually active?: No Retired: Yes Service: No Are you following a diet prescribed by a doctor: No Are you following a special diet: No POLST Patient has POLST: Yes POLST Status: DNR (Patient reports during office visit) Review of Systems Status of ROS: 10 or more systems reviewed and unremarkable except as noted in history and below Constitutional Denies: Fever or Chills Cardiovascular Reports: Irregular heart rate, swelling of feet/ankles and shortness of breath with exertion; Denies: chest pain or palpitations Respiratory Reports: Shortness of breath; Denies: Cough or Sputum production Gastrointestinal Denies: Abdominal pain Genitourinary Denies: Painful urination Neurological Reports: General weakness and Dizziness Exam Constitutional normal general appearance and no apparent distress HENMT normocephalic, head/scalp atraumatic and dentition abnormal other (Poor dentition) Eyes PERRL Neck/C-Spine visual inspection normal Lymph no lymphadenopathy noted Chest inspection of chest normal Respiratory breath sounds equal bilaterally and clear to auscultation bilaterally Cardiovascular heart rate abnormal (tachycardic), rhythm abnormal (irregular) and edema noted Gastrointestinal abdomen normal to inspection Extremities normal to inspection Neurology GCS 15 Psychiatry mental status grossly normal Skin skin color normal Conclusion/Plan Problem List (1) Atrial fibrillation with RVR: Plan: This atrial fibrillation with RVR causes of dizziness which led to a fall. CT head was performed which ruled out injury Received digoxin, metoprolol, Cardizem, amiodarone in the ER Continue Cardizem and amiodarone drips Check magnesium Received 1 L fluid resuscitation in the ER Check echo Already on Xarelto (2) Diabetes mellitus type 2, controlled: Plan: Managed with oral antidiabetics at home SSI while in the hospital Qualifiers: Diabetes mellitus complication status: with unspecified complications D iabetes mellitus terminologist insulin use: without terminologist use Qualified Code(s): E11.8 - Type 2 diabetes mellitus with unspecified complications (3) CVA (cerebral vascular accident): Plan: Remote history of CVA Residual left-sided deficits Continue home aspirin, statin PT/OT consult Qualifiers: CVA mechanism: unspecified Qualified Code(s): I63.9 - Cerebral infarction, unspecified Plan Placed in ICU observation Patient states she would like to be DNR, but is open to intubation if necessary Her son is her surrogate decision maker Lab Results Lab results reviewed: Yes 09/04/24 20:20 09/04/24 20:20
[2024-09-04 21:32] LABS: MAGNESIUM < 0.5 mg/dL (1.7-2.3)
[2024-09-04] MEDS: SODIUM BICARBONATE ABBOJECT 50 MEQ/50 ML SYRINGE IVP SCH (22:03)
[2024-09-04] MEDS: MAGNESIUM SULFATE 2 GRAM 4 GM/100 ML BAG IV ONE (22:38)
[2024-09-04] MEDS: METOPROLOL TARTRATE 50 MG TABLET PO SCH (23:03)
[2024-09-04] MEDS: GABAPENTIN 300 MG CAPSULE PO SCH (23:07)
[2024-09-05] MEDS: ACETAMINOPHEN 325 MG TABLET PO PRN (00:05)
[2024-09-05] MEDS: MIDODRINE 10 MG TABLET PO PRN (00:45)
[2024-09-05] MEDS: AMIODARONE 360 MG/200 ML 200 ML IV SCH (02:14)
[2024-09-05] MEDS: SODIUM CHLORIDE FLUSH 0.9% 10 ML SYRINGE IVP SCH (02:50)
[2024-09-05] MEDS: SODIUM CHLORIDE 0.9% 1,000 ML IV ONE (03:11)
[2024-09-05] MEDS: MAGNESIUM SULFATE 2 GRAM 2 GM/50 ML BAG IV SCH (03:36)
[2024-09-05 04:42] LABS: BASOPHILS % (AUTO) 0.1 %; EOSINOPHILS % (AUTO) 0.5 %; HCT - HEMATOCRIT 25.5 % (37.0-47.0); HGB - HEMOGLOBIN 8.6 g/dL (12.0-16.0); LYMPHOCYTES # (AUTO) 1.2 10^3/uL (1.5-3.5); LYMPHOCYTES % (AUTO) 15.9 %; MEAN CORPUSCULAR HEMOGLOBIN 35.1 pg (27.0-31.0); MEAN CORPUSCULAR HGB CONC 33.7 g/dL (32.0-36.0); MEAN CORPUSCULAR VOLUME 104.1 fL (81.0-99.0); MEAN PLATELET VOLUME 9.7 fL (7.9-10.8); MONOCYTES # (AUTO) 0.8 10^3/uL (0.0-1.0); MONOCYTES % (AUTO) 9.8 %; NEUTROPHILS # (AUTO) 5.6 10^3/uL (1.5-6.6); NEUTROPHILS % (AUTO) 73.3 %; PLT - PLATELET COUNT 222 10^3/uL (130-450); RED BLOOD COUNT 2.45 10^6/uL (4.20-5.40); RED CELL DISTRIBUTION WIDTH 14.2 % (12.0-15.0); WHITE BLOOD COUNT 7.6 x10^3/uL (4.8-10.8)
[2024-09-05 04:45] LABS: CALCIUM, IONIZED 1.17 mmol/L (1.09-1.30); VBG PH 7.396 (7.31-7.41)
[2024-09-05 04:59] LABS: CALCIUM 8.1 mg/dL (8.5-10.3); POTASSIUM 3.6 mmol/L (3.5-4.5)
[2024-09-05] MEDS: POTASSIUM CHLOR 20 MEQ/100 ML 20 MEQ/100 ML BAG IV ONE (05:53)
[2024-09-05] MEDS: SODIUM CHLORIDE 0.9% 500 ML IV ONE ×3 (05:57→10:05)
[2024-09-05] MEDS: DIGOXIN 500 MCG/2 ML AMP IVP STA (08:06)
[2024-09-05] MEDS: INSULIN LISPRO 300 UNIT/3 ML PEN SUBQ SCH (08:07)
[2024-09-05] MEDS: APIXABAN 2.5 MG TABLET PO SCH (08:34)
[2024-09-05] MEDS: PANTOPRAZOLE 40 MG TABLET PO SCH (08:38)
--- NOTE | 2024-09-05 08:39 | ED Physician Documentation ---
ED Addendum Addendum Addendum: I received signout/turnover of care of this patient from Dr. Moura; please see her note for complete H&P. Patient initially presented due to dizziness that resulted in a fall, possible head injury with prescription medications that include Xarelto. CT head was undertaken and there were no concerning findings on this study. No particularly concerning findings on CBC (H/H is slightly below patient's baseline). ER abdominal panel is notable for elevated BUN/creatinine above pat ient's baseline. The biggest challenge regarding the patient's care up until the time of signout is atrial fibrillation with RVR. Patient is also had mostly soft blood pressures with systolic blood pressures ranging in the mid 80s to mid 90s. Dr. Moura had already given patient IV Lopressor, p.o. Cardizem, IV digoxin, IV Cardizem drip, and, after then discussing this case with patient's tanning drum operator (Dr. Chandler), amiodarone bolus followed by amiodarone drip. Unfortunately, none of these interventions had any significant/lasting effect on the rapid ventricular rate. I reviewed patient's recent/previous charts including recent inpatient stay at [facility]; at that time, one of the primary concerns that led to the admission was severe hypomagnesemia. Thus, I ordered a magnesium level and the result is less than 0.5 mg/dL. I then discussed this case with [facility] hospitalist to evaluate the patient and is going forward with admit to [facility]. Discharge Plan Discharge Patient Disposition: ED Place in Observation Condition: Stable Clinical Impression: Atrial fibrillation with RVR, Hypomagnesemia Interventions: ED Admission Assessment Last Done: 09/04/24 22:59
[2024-09-05] MEDS ORDERED: PANTOPRAZOLE 40 MG TABLET PO SCH (09:29)
[2024-09-05] MEDS ORDERED: SODIUM CHLORIDE 0.9% 1,000 ML ONE (10:00)
[2024-09-05] MEDS: DIGOXIN 500 MCG/2 ML AMP IVP SCH (11:57)
[2024-09-05] MEDS: LACTATED RINGERS 1,000 ML IV SCH (11:57)
--- NOTE | 2024-09-05 13:05 | PROVIDER PROGRESS NOTE ---
Subjective Prog Note Date Prog Note Date: 09/05/24 Subjective Pt reports feeling: Improved Current Medications Current Medications Current Medications: Current Medications Generic Name Dose Route Start Last Admin Trade Name Abdifatahq PRN Reason Stop Dose Admin Acetaminophen 650 mg 09/04/24 22:31 09/05/24 08:36 Acetaminophen 325 Mg Tablet PO 650 mg Q4HR PRN Administration Pain 1 to 4, or Fever Apixaban 2.5 mg 09/05/24 09:00 09/05/24 08:34 Apixaban 2.5 Mg Tablet PO 2.5 mg BID MARISA Administration Atorvastatin Calcium 20 mg 09/05/24 21:00 Atorvastatin 10 Mg Tablet PO QPM MARISA Digoxin 250 mcg 09/05/24 12:00 09/05/24 11:57 Digoxin 500 Mcg/2 Ml Amp IVP 250 mcg Q6HR MARISA Administration Gabapentin 300 mg 09/04/24 22:31 09/05/24 08:38 Gabapentin 300 Mg Capsule PO 300 mg BID MARISA Administration Amiodarone HCl/Dextrose 200 mls @ 16.667 mls/hr 09/05/24 02:30 09/05/24 02:14 Nexterone 360 Mg/200 Ml IV 0.5 mg/min .Q12H MARISA 16.67 mls/hr Administration 0.5 MG/MIN Lactated Ringer's 1,000 mls @ 75 mls/hr 09/05/24 12:00 09/05/24 11:57 Lr IV 75 mls/hr .[id number] MARISA Administration Insulin Human Lispro 1 - 5 unit 09/05/24 08:00 09/05/24 12:21 Insulin Lispro 300 Unit/3 Ml Pen SUBQ 1 unit 0800,1200,1700,2100 MARISA Administration Protocol Metoprolol Tartrate 100 mg 09/04/24 22:31 09/05/24 08:34 Metoprolol Tartrate 50 Mg Tablet PO 100 mg BID MARISA Administration Midodrine 10 mg 09/05/24 00:29 09/05/24 00:45 Midodrine 10 Mg Tablet PO 09/06/24 00:28 10 mg ONCE PRN Administration SBP<90 Pantoprazole Sodium 40 mg 09/06/24 07:00 Pantoprazole 40 Mg Tablet PO QDAC MARISA Sodium Chloride 10 ml 09/05/24 01:00 09/05/24 08:38 Sodium Chloride Flush 0.9% 10 Ml Syringe IVP 10 ml 0100,0900,1700 MARISA Administration Sodium Chloride 10 ml 09/04/24 22:31 Sodium Chloride Flush 0.9% 10 Ml Syringe IVP PRN PRN NEEDED PER PROVIDER ORDERS Tizanidine HCl 4 mg 09/05/24 00:30 Tizanidine 4 Mg Tablet PO TID PRN Spasms Objective Vital Signs/Intake & Output Reviewed Vital Signs: Yes Vital Signs: Vital Signs x48h Temp Pulse Pulse Resp BP BP Pulse Ox 09/05/24 12:00 36.6 C 135 H 19 97/59 L 93 09/05/24 12:00 134 H 22 97/59 L 93 09/05/24 11:57 132 H 09/05/24 11:00 112 H 23 96/66 92 09/05/24 10:16 130 H 30 H 99/62 93 09/05/24 10:00 134 H 26 H 91/62 95 09/05/24 09:30 155 H 27 H 77/33 L 98 09/05/24 09:00 126 H 23 85/68 L 98 09/05/24 08:45 130 H 26 H 89/60 L 97 09/05/24 08:34 36.6 C 09/05/24 08:34 154 H 93/70 09/05/24 08:06 138 H 09/05/24 08:00 138 H 22 88/65 L 09/05/24 07:00 145 H 25 H 82/62 L 09/05/24 06:00 148 H 21 93/53 L 95 09/05/24 05:00 152 H 28 H 77/61 L 94 Intake & Output: Intake & Output 09/02/24 09/03/24 09/04/24 09/05/24 23:59 23:59 23:59 23:59 Intake Total 107 / 107 3480 / 3480 Output Total 0 / 0 Balance 107 / 107 3480 / 3480 Weight (kg) 91.5 kg 94.5 kg Objective General Appearance: positive No acute distress and Alert Eyes Bilateral: positive Normal inspection and PERRL ENT: positive ENT inspection nml and Pharynx nml Neck: positive Nml inspection Respiratory: positive Chest non-tender and No respiratory distress Cardiovascular: positive Irregularly irregular Abdomen: positive Non-tender Skin: positive Color nml Extremities: positive Pedal edema Neurologic/Psychiatric: positive Oriented x3 Lab Results 09/05/24 04:27 09/05/24 08:00 Other Labs: Lab Results x24hrs 09/05/24 09/05/24 09/05/24 Range/Units 11:45 08:00 07:53 WBC (4.8-10.8) x10^3/uL RBC (4.20-5.40) 10^6/uL Hgb (12.0-16.0) g/dL Hct (37.0-47.0) % MCV (81.0-99.0) fL MCH (27.0-31.0) pg MCHC (32.0-36.0) g/dL RDW (12.0-15.0) % Plt Count (130-450) 10^3/uL MPV (7.9-10.8) fL Neut # (Auto) (1.5-6.6) 10^3/uL Lymph # (Auto) (1.5-3.5) 10^3/uL [place] # (Auto) (0.0-1.0) 10^3/uL Eos # (Auto) (0.0-0.7) 10^3/uL Baso # (Auto) (0.0-0.1) 10^3/uL Absolute Nucleated RBC x10^3/uL Nucleated RBC % /100WBC VBG pH (7.31-7.41) Ionized Calcium (1.09-1.30) mmol/L Sodium (135-145) mmol/L Potassium 3.9 (3.5-4.5) mmol/L Chloride (101-111) mmol/L Carbon Dioxide (21-32) mmol/L Anion Gap (6-13) BUN (6-20) mg/dL Creatinine (0.6-1.3) mg/dL Estimated GFR (MDRD) (>89) Glucose (74-104) mg/dL POC Whole Bld Glucose 158 138 (70-100) mg/dL Calcium (8.5-10.3) mg/dL Phosphorus (2.5-5.0) mg/dL Magnesium 2.1 (1.7-2.3) mg/dL Total Bilirubin (0.2-1.0) mg/dL AST (10-42) IU/L ALT (10-60) IU/L Alkaline Phosphatase (42-121) IU/L Total Protein (6.4-8.9) g/dL Albumin (3.2-5.5) g/dL Globulin (2.1-4.2) g/dL Albumin/Globulin Ratio (1.0-2.2) Lipase (11-82) U/L Nasal Screen MRSA (PCR) (NEGATIVE) 09/05/24 09/05/24 09/04/24 Range/Units 04:27 02:34 22:50 WBC 7.6 (4.8-10.8) x10^3/uL RBC 2.45 L (4.20-5.40) 10^6/uL Hgb 8.6 L (12.0-16.0) g/dL Hct 25.5 L (37.0-47.0) % MCV 104.1 H (81.0-99.0) fL MCH 35.1 H (27.0-31.0) pg MCHC 33.7 (32.0-36.0) g/dL RDW 14.2 (12.0-15.0) % Plt Count 222 (130-450) 10^3/uL MPV 9.7 (7.9-10.8) fL Neut # (Auto) 5.6 (1.5-6.6) 10^3/uL Lymph # (Auto) 1.2 L (1.5-3.5) 10^3/uL [place] # (Auto) 0.8 (0.0-1.0) 10^3/uL Eos # (Auto) 0.0 (0.0-0.7) 10^3/uL Baso # (Auto) 0.0 (0.0-0.1) 10^3/uL Absolute Nucleated RBC 0.00 x10^3/uL Nucleated RBC % 0.0 /100WBC VBG pH 7.396 (7.31-7.41) Ionized Calcium 1.17 (1.09-1.30) mmol/L Sodium 142 (135-145) mmol/L Potassium 3.6 (3.5-4.5) mmol/L Chloride 107 (101-111) mmol/L Carbon Dioxide 23 (21-32) mmol/L Anion Gap 12.0 (6-13) BUN 59 H (6-20) mg/dL Creatinine 2.0 H (0.6-1.3) mg/dL Estimated GFR (MDRD) 30 L (>89) Glucose 138 H (74-104) mg/dL POC Whole Bld Glucose (70-100) mg/dL Calcium 8.1 L (8.5-10.3) mg/dL Phosphorus 3.3 (2.5-5.0) mg/dL Magnesium 1.1 L (1.7-2.3) mg/dL Total Bilirubin (0.2-1.0) mg/dL AST (10-42) IU/L ALT (10-60) IU/L Alkaline Phosphatase (42-121) IU/L Total Protein (6.4-8.9) g/dL Albumin (3.2-5.5) g/dL Globulin (2.1-4.2) g/dL Albumin/Globulin Ratio (1.0-2.2) Lipase (11-82) U/L Nasal Screen MRSA (PCR) NEGATIVE (NEGATIVE) 09/04/24 Range/Units 20:20 WBC 9.6 (4.8-10.8) x10^3/uL RBC 2.69 L (4.20-5.40) 10^6/uL Hgb 9.2 L (12.0-16.0) g/dL Hct 27.5 L (37.0-47.0) % MCV 102.2 H (81.0-99.0) fL MCH 34.2 H (27.0-31.0) pg MCHC 33.5 (32.0-36.0) g/dL RDW 14.4 (12.0-15.0) % Plt Count 243 (130-450) 10^3/uL MPV 9.5 (7.9-10.8) fL Neut # (Auto) 7.9 H (1.5-6.6) 10^3/uL Lymph # (Auto) 1.0 L (1.5-3.5) 10^3/uL [place] # (Auto) 0.7 (0.0-1.0) 10^3/uL Eos # (Auto) 0.0 (0.0-0.7) 10^3/uL Baso # (Auto) 0.0 (0.0-0.1) 10^3/uL Absolute Nucleated RBC 0.00 x10^3/uL Nucleated RBC % 0.0 /100WBC VBG pH (7.31-7.41) Ionized Calcium (1.09-1.30) mmol/L Sodium 135 (135-145) mmol/L Potassium 4.5 (3.5-4.5) mmol/L Chloride 105 (101-111) mmol/L Carbon Dioxide 19 L (21-32) mmol/L Anion Gap 11.0 (6-13) BUN 58 H (6-20) mg/dL Creatinine 2.0 H (0.6-1.3) mg/dL Estimated GFR (MDRD) 30 L (>89) Glucose 189 H (74-104) mg/dL POC Whole Bld Glucose (70-100) mg/dL Calcium 8.4 L (8.5-10.3) mg/dL Phosphorus 3.9 (2.5-5.0) mg/dL Magnesium < 0.5 L* (1.7-2.3) mg/dL Total Bilirubin 0.6 (0.2-1.0) mg/dL AST 15 (10-42) IU/L ALT 17 (10-60) IU/L Alkaline Phosphatase 33 L (42-121) IU/L Total Protein 5.4 L (6.4-8.9) g/dL Albumin 2.9 L (3.2-5.5) g/dL Globulin 2.5 (2.1-4.2) g/dL Albumin/Globulin Ratio 1.2 (1.0-2.2) Lipase < 10 L (11-82) U/L Nasal Screen MRSA (PCR) (NEGATIVE) Assessment/Plan Problem List (1) Atrial fibrillation with RVR: Impression: This atrial fibrillation with RVR, this is the cause of dizziness which led to a fall. CT head was performed which ruled out injury Received digoxin, metoprolol, Cardizem, amiodarone in the ER Continue Cardizem and amiodarone drips Check magnesium Received 1 L fluid resuscitation in the ER Check echo Already on Xarelto 09/05/2024: Continue digoxin, metoprolol, Cardizem, amiodarone. Her magnesium was noted to be undetectably low, this has been corrected. Suspect medication noncompliance. Echo has been performed, awaiting read. LR at 75. Digoxin level in a.m. (2) Diabetes mellitus type 2, controlled: Impression: On oral antidiabetics at home SSI while in the hospital A1c in a.m. Qualifiers: Diabetes mellitus assisted insulin use: without assisted use Diabetes mellitus complication status: with unspecified complications Qualified Code(s): E11.8 - Type 2 diabetes mellitus with unspecified complications (3) CVA (cerebral vascular accident): Impression: Remote history of CVA Residual left-sided deficits Continue home aspirin, statin PT/OT Qualifiers: CVA mechanism: unspecified Qualified Code(s): I63.9 - Cerebral infarction, unspecified
[2024-09-05] MEDS: tiZANidine 4 MG TABLET PO PRN (13:21)
[2024-09-05] MEDS: ACETAMINOPHEN 500 MG TABLET PO SCH (13:38)
[2024-09-05] MEDS: DICLOFENAC SODIUM 1% GEL 50 GM TUBE TOP PRN (13:38)
[2024-09-05 15:10] LABS: BILIRUBIN,URINE SMALL (NEGATIVE); GLUCOSE, URINE (UA) NEGATIVE (NEGATIVE); KETONES,URINE (UA) NEGATIVE (NEGATIVE); LEUKOCYTE ESTERASE, URINE NEGATIVE (NEGATIVE); NITRITE,URINE NEGATIVE (NEGATIVE); OCCULT BLOOD,URINE NEGATIVE (NEGATIVE); PH,URINE 5.5 PH (5.0-7.5); PROTEIN,URINE TRACE mg/dL (NEGATIVE); UROBILINOGEN,URINE 0.2 (NORMAL) E.U./dL (NORMAL)
[2024-09-05 15:13] LABS: CLARITY,URINE BLOODY (CLEAR)
[2024-09-05 15:37] LABS: MAGNESIUM 1.8 mg/dL (1.7-2.3)
[2024-09-05] MEDS ORDERED: iohexoL-300 100 ML VIAL ONE (15:40)
[2024-09-05 15:43] LABS: CREATININE 1.7 mg/dL (0.6-1.3); PHOSPHORUS 3.2 mg/dL (2.5-5.0); POTASSIUM 3.9 mmol/L (3.5-4.5)
[2024-09-05] MEDS: iohexoL-300 100 ML VIAL IVP ONE (16:06)
[2024-09-05] MEDS: LACTATED RINGERS 1,000 ML IV ONE ×2 (16:08→19:01)
[2024-09-05] MEDS: MAGNESIUM SULFATE 2 GRAM 4 GM/100 ML BAG IV ONE (16:08)
--- NOTE | 2024-09-05 16:14 | PHARMACY PROGRESS NOTE ---
Best Possible Medication History Admit Date and Time: 09/05/24 1521 Home Medications Medication Instructions Recorded Confirmed Type amlodipine 10 mg tablet 10 mg PO DAILY 08/19/24 09/04/24 History atorvastatin 20 mg tablet 20 mg PO QPM 08/19/24 09/04/24 History gabapentin 300 mg capsule 300 mg PO TID 08/19/24 09/05/24 History hydralazine 25 mg tablet 25 mg PO BID 08/19/24 09/04/24 History lisinopril 40 mg tablet 40 mg PO DAILY 08/19/24 09/04/24 History metformin 1,000 mg tablet 1,000 mg PO BIDWM 08/19/24 09/04/24 History methotrexate sodium 2.5 mg tablet 15 mg PO WE 08/19/24 09/04/24 History metoprolol tartrate 100 mg tablet 100 mg PO BID 08/19/24 09/04/24 History pantoprazole 40 mg tablet,delayed 40 mg PO DAILY 08/19/24 09/04/24 History release rivaroxaban 10 mg tablet (Xarelto) 10 mg PO DAILY 08/19/24 09/04/24 History sarilumab 200 mg/1.14 mL 200 mg subcut Q14D 08/19/24 09/04/24 History subcutaneous syringe (Kevzara) sitagliptin phosphate 100 mg 100 mg PO DAILY 08/19/24 09/04/24 History tablet (Januvia) ferrous sulfate 325 mg (65 mg 325 mg PO DAILY 08/20/24 09/02/24 History iron) tablet (FeroSul) loratadine 10 mg tablet 10 mg PO DAILY 08/20/24 09/04/24 History (Allerclear) magnesium oxide 400 mg PO DAILY #30 caps 08/20/24 09/04/24 Rx omega 9-tcq-shm-fish oil 100 2 cap PO DAILY 08/20/24 09/02/24 History mg-160 mg-1,000 mg capsule (Fish Oil) vitamin B complex (Balanced B-50 1 tab PO DAILY 08/20/24 09/02/24 History tablet) albuterol sulfate 90 mcg/actuation 1 puff inhalation QID PRN 08/30/24 09/04/24 Rx aerosol inhaler (Ventolin HFA) shortness of breath or wheezing #6.7 grams doxycycline hyclate 100 mg capsule 100 mg PO BID #14 caps 08/30/24 09/04/24 Rx Processed by: Pharmacy Medications reviewed in ED?: No Medication History completed: Yes Patient Interview: Pt unable to participate Secondary Source(s): Pharmacy records (Fill hx from Eddie) and Insurance records [facility] Statement: As the person ultimately responsible for medication therapy, providers are able to order a medication from an existing home medication list in [facility] via the "Reconcile Routine" prior to Confirmation of that medication by client application support engineer. Such practice is discouraged except when the physician, in their clinical judgment, deems that a medical need exists for a medication without regard to previous use.
--- NOTE | 2024-09-05 16:53 | CT Report ---
PROCEDURE: CT Angio Chest INDICATIONS: Rule out PE CONTRAST: OMNI 300 100ML TECHNIQUE: After the administration of intravenous contrast, 2 mm axial images were acquired from the pulmonary apices to the posterior costophrenic angles during the arterial phase. In addition, 1 mm lung kernel and 5 mm soft tissue kernel reconstructions were performed. 3-dimensional coronal oblique maximum int ensity projection (MIP) reformats, 8 mm axial MIP, and 5 mm coronal and sagittal MPR reformats were t hen performed through the thorax. For radiation dose reduction, the following was used: automated exp osure control, adjustment of mA and/or kV according to patient size. COMPARISON: 09/22/2024 FINDINGS: Image quality: Suboptimal due to motion artifact. Large vessels: No filling defects within the opacified pulmonary arteries, accounting for motion and contrast timing. No evidence of acute aortic syndrome or aortic aneurysm. Lungs and pleura: Small left and trace right pleural effusion. There is abnormal enhancement of the l eft lower lobe. Multiple juxtapleural nodules are seen throughout the lungs, largest measuring 1.3 x 0.9 cm in the left upper lobe (series 6, image 46). Mediastinum: Heart size is enlarged. No pericardial effusion. No large vessel abnormality. Three-vess el coronary calcifications. Extensive mediastinal adenopathy. Index lesion is subcarinal and measures 3 cm short axis. Chest wall and lower neck: Thyroid is unremarkable. Significant supraclavicular fossa adenopathy. Ind ex nodule measures 1.3 cm on the left (series 4, image 10). Bones: No aggressive osseous abnormality. Upper Abdomen: Hypertrophy of the adrenal glands. IMPRESSION: No pulmonary embolus. Left lower lobe pneumonia with a small parapneumonic effusion. Suspected lymphoma, with enlarged supraclavicular fossa lymph nodes, mediastinal lymphadenopathy and large intrapulmonary lymph nodes. The left supraclavicular fossa nodes would be amenable to ultrasoun d-guided biopsy for confirmation. Reviewed by: Dane Painter MD on 09/05/2024 4:51 PM PST Approved by: Dane Painter MD on 09/05/2024 4:51 PM PST Station ID: [id number]
[2024-09-05 17:22] LABS: THYROID STIMULATING HORMONE 0.45 uIU/mL (0.34-5.60)
[2024-09-05] MEDS: metroNIDAZOLE 250 MG TABLET PO SCH (17:32)
[2024-09-05] MEDS: CEFEPIME 2 GM VIAL IVP SCH (17:51)
[2024-09-05] MEDS ORDERED: CEFEPIME 2 GM in SODIUM CHLORIDE 0.9% MINIBAG 100 ML IV SCH (18:00)
[2024-09-05] MEDS: guaiFENesin 600 MG TABLET PO SCH (21:07)
[2024-09-05] MEDS: ATORVASTATIN 10 MG TABLET PO SCH (21:09)
[2024-09-05 21:34] LABS: VBG PH 7.374 (7.31-7.41)
[2024-09-05 21:36] LABS: CALCIUM, IONIZED 1.19 mmol/L (1.09-1.30)
[2024-09-05 22:34] LABS: MAGNESIUM 2.6 mg/dL (1.7-2.3); PHOSPHORUS 2.7 mg/dL (2.5-5.0); POTASSIUM 3.8 mmol/L (3.5-4.5)
[2024-09-05] MEDS: POTASSIUM CHLORIDE 20 MEQ TABLET PO ONE (23:26)
[2024-09-06 05:10] LABS: BASOPHILS % (AUTO) 0.2 %; EOSINOPHILS # (AUTO) 0.2 10^3/uL (0.0-0.7); EOSINOPHILS % (AUTO) 2.9 %; HCT - HEMATOCRIT 26.3 % (37.0-47.0); HGB - HEMOGLOBIN 8.7 g/dL (12.0-16.0); LYMPHOCYTES # (AUTO) 0.7 10^3/uL (1.5-3.5); LYMPHOCYTES % (AUTO) 12.6 %; MEAN CORPUSCULAR HEMOGLOBIN 34.5 pg (27.0-31.0); MEAN CORPUSCULAR HGB CONC 33.1 g/dL (32.0-36.0); MEAN CORPUSCULAR VOLUME 104.4 fL (81.0-99.0); MEAN PLATELET VOLUME 9.6 fL (7.9-10.8); MONOCYTES # (AUTO) 0.4 10^3/uL (0.0-1.0); MONOCYTES % (AUTO) 7.2 %; NEUTROPHILS # (AUTO) 4.3 10^3/uL (1.5-6.6); NEUTROPHILS % (AUTO) 76.6 %; PLT - PLATELET COUNT 232 10^3/uL (130-450); RED BLOOD COUNT 2.52 10^6/uL (4.20-5.40); RED CELL DISTRIBUTION WIDTH 14.6 % (12.0-15.0); WHITE BLOOD COUNT 5.6 x10^3/uL (4.8-10.8)
[2024-09-06 05:16] LABS: CALCIUM, IONIZED 1.2 mmol/L (1.09-1.30); VBG PH 7.38 (7.31-7.41)
[2024-09-06 05:29] LABS: CALCIUM 7.9 mg/dL (8.5-10.3); CREATININE 1.3 mg/dL (0.6-1.3); POTASSIUM 4.1 mmol/L (3.5-4.5)
[2024-09-06 05:53] LABS: MAGNESIUM 2.3 mg/dL (1.7-2.3); PHOSPHORUS 2.9 mg/dL (2.5-5.0)
[2024-09-06 06:18] LABS: DIGOXIN 4.1 ng/mL
[2024-09-06] MEDS: PANTOPRAZOLE 40 MG TABLET PO SCH (06:38)
[2024-09-06] MEDS: FERROUS SULFATE 325 MG TABLET PO SCH (08:11)
[2024-09-06] MEDS: MAGNESIUM OXIDE 400 MG TABLET PO SCH (08:11)
[2024-09-06] MEDS ORDERED: VITAMIN B COMPLEX PO SCH (09:00)
[2024-09-06] MEDS: AMIODARONE 360 MG/200 ML 200 ML IV SCH (10:22)
[2024-09-06 10:32] LABS: ESTIMATED AVERAGE GLUCOSE 120 mg/dL (70-100); HEMOGLOBIN A1c% 5.8 % (4.27-6.07)
--- NOTE | 2024-09-06 20:12 | PROVIDER PROGRESS NOTE ---
Progress Note Progress Note Progress Note: September 06, 2024 1800 Not much improvement today. Her heart rate continues to be elevated. This is in spite of digoxin dosing, amiodarone, and Cardizem. She is currently being treated for pneumonia as well. The amiodarone is a continuous drip. The cefepime is for pneumonia. And the metronidazole p.o. is for trichomonas seen on UA a month ago. But not treated. She is alert. Oriented. Denies any chest pain. But very weak and tired. exam: Blood pressure is 87/58, pulse 105, respirations 16, O2 sat 98% 5 foot 8 inches tall, 100 kg. No JVD Able to lay below 45 degrees in the bed. Nursing is working to make sure that she does not get heel ulcers by lifting her heels off the bed and rotating the bed. ENT has her without teeth Lungs have faint, occasionally scattered wheezing. During her exam with me she has a cough and it sounds quite wet but she does not bring anything up. No egophony. Mid rhonchi. Irregular rate and rhythm with a systolic ejection murmur Abdomen is soft, nontender, normal bowel sounds. She is incontinent of urine so a Rey was placed. Feet have 1+ edema around the ankles but that dissipates by the time you get to her calves. Neurologically she is fatigued appearing, slightly deaf, no focal deficits but with generalized weakness needing a 1 person assist. She is able to feed herself. Labs were reviewed by me. Sodium, potassium, chloride, carbon dioxide were all normal. BUN 44, creatinine 1.3. When she was admitted her BUN was 58. When she was admitted her creatinine was 2.0. She has improved with kidney function. Glucose today is 140 9 in the morning before breakfast, 157 before lunch, 175 before dinner. A1c is 5.8%. Calcium phosphorus and magnesium are normal with calcium corrected for albumin. White cell count is normal at 5.6. Hemoglobin is 8.7. Baseline hemoglobin 11.2. Macrocytic at 104.4. Macrocytosis has been as high as 109 August 30. Echocardiogram done September 05 had a left ventricular systolic function that was mildly to moderately impaired at 45%. Mild global hypokinesis of LV contractility. Right ventricle size normal. Right ventricular systolic function normal. No concerning cardiac valve disease. Assessment/plan 1. Pneumonia in an elderly patient with congestive heart failure from reduced ejection fraction and A-fib that is uncontrolled. Blood cultures are negative. White cell count is normal. I will continue cefepime for 3 days and then switch to oral. 2. Atrial fibrillation with RVR. Dig level is toxic this morning at 4.1. I am holding her dig. Continuing the amiodarone drip. If I cannot get any traction with her by tomorrow morning I will call cardiology. I spoke to the ER doctor who admitted her and she said that she had extensive conversation with the patient and cardiology. The patient did not want cardioversion. She does not want to be intubated, receive electricity, or chest compression. But her weight is not improving. I did consider dobutamine but in the face of continued tachycardia I only felt it would make it worse so opted not to do dobutamine. I will start Levophed if urine output drops. 3. Acute on chronic systolic heart failure with reduced ejection fraction. At home she is on amlodipine for high blood pressure, hydralazine twice daily for blood pressure, lisinopril 40 mg daily, metoprolol 100 mg p.o. twice daily and Januvia. For CHF, she is only on a beta-beti while here. The Januvia is a DPP 4 inhibitor but not an SGLT2. I will call her mathematical scientist tomorrow and see if he can help us via phone consult. I will give her Lasix 20 mg p.o. 4. Trichomonas started on po flagyle on admission once it was verfied that she did not receive treatment for that.
[2024-09-06] MEDS: KETOROLAC 15 MG/ML VIAL IVP PRN (21:14)
[2024-09-06] MEDS: HYDROmorphone 0.5 MG/0.5 ML SYRINGE IVP STA (21:15)
[2024-09-06] MEDS: diphenhydrAMINE INJ 50 MG/ML VIAL IVP PRN (21:15)
[2024-09-06] MEDS: LIDOCAINE PATCH 4% TOP SCH (22:08)
[2024-09-07] MEDS: SODIUM CHLORIDE FLUSH 0.9% 10 ML SYRINGE IVP PRN (04:32)
[2024-09-07 04:45] LABS: BASOPHILS % (AUTO) 0.2 %; EOSINOPHILS # (AUTO) 0.2 10^3/uL (0.0-0.7); EOSINOPHILS % (AUTO) 2.8 %; HCT - HEMATOCRIT 26.2 % (37.0-47.0); HGB - HEMOGLOBIN 8.6 g/dL (12.0-16.0); LYMPHOCYTES # (AUTO) 0.6 10^3/uL (1.5-3.5); LYMPHOCYTES % (AUTO) 10.5 %; MEAN CORPUSCULAR HEMOGLOBIN 34.7 pg (27.0-31.0); MEAN CORPUSCULAR HGB CONC 32.8 g/dL (32.0-36.0); MEAN CORPUSCULAR VOLUME 105.6 fL (81.0-99.0); MEAN PLATELET VOLUME 9.5 fL (7.9-10.8); MONOCYTES # (AUTO) 0.5 10^3/uL (0.0-1.0); NEUTROPHILS # (AUTO) 4.1 10^3/uL (1.5-6.6); NEUTROPHILS % (AUTO) 76.1 %; PLT - PLATELET COUNT 231 10^3/uL (130-450); RED BLOOD COUNT 2.48 10^6/uL (4.20-5.40); RED CELL DISTRIBUTION WIDTH 14.5 % (12.0-15.0); WHITE BLOOD COUNT 5.3 x10^3/uL (4.8-10.8)
[2024-09-07 04:53] LABS: CALCIUM, IONIZED 1.21 mmol/L (1.09-1.30); VBG PH 7.385 (7.31-7.41)
[2024-09-07 05:08] LABS: CALCIUM 8.2 mg/dL (8.5-10.3); CREATININE 1.3 mg/dL (0.6-1.3); MAGNESIUM 1.8 mg/dL (1.7-2.3); PHOSPHORUS 3.1 mg/dL (2.5-5.0); POTASSIUM 4.1 mmol/L (3.5-4.5)
[2024-09-07] MEDS: FUROSEMIDE 20 MG TABLET PO SCH (08:42)
[2024-09-07] MEDS: AMIODARONE 200 MG TABLET PO SCH (08:49)
[2024-09-07] MEDS: LEVALBUTEROL 1.25 MG/3 ML NEB INH SCH (10:38)
[2024-09-07] MEDS: IPRATROPIUM 0.2 MG/ML NEB INH SCH (10:38)
--- NOTE | 2024-09-07 13:37 | PROVIDER PROGRESS NOTE ---
Progress Note Progress Note Progress Note: September 07, 2024 1:27 PM My thought was to call cardiology today since she was not responding to her therapy. 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 And then by 10 AM, she was in sinus rhythm. She is still short of breath. And even speaking to me she has a very congested phlegmy cough that is nonproductive. Voice is hoarse. I can barely, barely hear her through what may be laryngitis. Nursing reports that she is very motivated. She tried to get out of bed to go sit in a chair but got only as far is sitting at the side of the bed and trying to stand. Truncal stability was poor, generalized weakness in her legs, and her left knee is really hurting her. She states that she has rheumatoid arthritis. Exam: Current temperature is 36.5, pulse rate 62, respirations 22, 93% saturated on ro om air. Blood pressure 102/55. She is a morbidly obese female at 5 foot 8 inches tall, 103.5 kg. Voice is very hoarse. I had to unfortunately ask her to repeat which she was saying 3 times in order for me to hear the bare minimum of what she wanted to say about her needs and shortness of breath. She states her throat does not hurt. Back of her throat is not red or injected nor with white exudate. There is no dysphagia. Neck is obese, supple, nontender. Coarse rhonchi in all lung pollard. And occasional scattered wheeze. Getting her to sit up causes her to be temporarily exhausted and her respiratory rate goes up but calms down within 30 seconds. No use of accessory muscles. Abdomen is obese, soft, nontender. Normal bowel sounds. Extremities with edema. The left knee does not have an effusion. It is not hot or warm. But she points to her hands, wrists, knees and feet where she hurts. I reviewed the labs and her BNP is normal except for a BUN of 39. She was admitted with a BUN of 58 and she was 44 yesterday. Creatinine is 1.3 and she was admitted at 2.0. Fasting glucose this morning is 136. White cell count is 5.3 and stable. Hemoglobin has 8.6. MCV 105.6. Platelets 231 Assessment/plan 1. Pneumonia in an elderly patient with congestive heart failure from reduced ejection fraction and A-fib that is uncontrolled. Blood cultures are negative. White cell count is normal. I will continue cefepime for 3 days and then switch to oral. Today will complete 3 days after her third dose. Her CT showed left lower lobe pneumonia with a small parapneumonic effusion. DC Cefepime tonight and start levaquin in the morning. I will check procalcitonin today and in am to make sure I don't need to continue IV Due to the lymphadenopathy on CT I do think she is not a simple adult CAP but one with co-morbidity. Our lab can't check for antigen for strep pneumonia or PCR for Legionella but I will order send out labs in case she fails the switch to oral meds. PT and OT were ordered on admit but they couldn't work with her due to the drips. Now that those have stopped, I have asked they see her for generalized w eakness and see if dc is to home or SNF for rehab. 2. Atrial fibrillation with RVR. The medications finally kicked in! She was slowed to 50 this morning with continued afib. Then converted to Sinus. I am writing transfer orders to Med surg with tele. I am changing the amiodarone from IV drip to po. I am continuing the betablocker and eliquis. 3. Acute on chronic systolic heart failure with reduced ejection fraction. Echocardiogram done September 05 shows overall left ventricular systolic function is mild to moderately impaired with an ejection fraction of 45%. Mild global hypokinesis of LV contractility. Right ventricle size is normal. Right ventricle systolic function normal. No concerning valvular heart disease. Left atrium has moderate to severe increase in left atrial volume index. Moderate to severe right atrial enlargement. At home she is on amlodipine for high blood pressure, hydralazine twice daily for blood pressure (it is listed even though the dc med list from last admit says it was stopped), lisinopril 40 mg daily, metoprolol 100 mg p.o. twice daily and Januvia. For CHF, she is only on a beta- beti while here. The Januvia is a DPP 4 inhibitor but not an SGLT2. I had anticipated calling cardiology this morning, however now that she is in sinus rhythm, I will not call. I started lasix 20 mg po this morning but still so fluid overloaded by breath sounds, I will give a one time IV lasix dose. 4. Trichomonas started on po flagyl on admission once it was verfied that she did not receive treatment for that. As I think about her, there is nothing to suggest that she has other STDs. There is no vaginal ulcers. No vaginal discharge. But I will go ahead and get urine GC and chlamydia. And send a serum RPR. 5. Lymphadenopathy. CT done for evaluation of pneumonia shows suspected lymphoma with enlarged supraclavicular fossa lymph nodes, mediastinal lymphadenopathy, and large intrapulmonary lymph nodes. The left supraclavicular fossa node would be amenable to ultrasound-guided biopsy for confirmation. I will make sure that this is emphasized in her dc summary for followup with her PCP OCTAVIO Jane. 6. Rheumatoid Arthritis If possible, I am asking her to bring in her own medications which includes the methotrexate and the monoclonal antibody injectable and give them to her as appropriate. However, after speaking to pharmacy, she theoreticaly has an infection we are treating and those meds are contraindicated so I had to cancel the orders. In the meantime, I will use nonsteroidals in the form of Toradol 15 mg IV push Q6 as needed for total of 5 doses to help with pain. All Active Problems during this stay(Updated 09/07/24 @ 13:50 by Lorie Olivo MD) LLL pneumonia (Acute) Afib (Acute) Trichomonas infection (Acute) Hypomagnesemia (Acute) Atrial fibrillation with RVR (Acute) SOB (shortness of breath) on exertion (Acute) Rheumatoid arthritis (Acute) CVA (cerebral vascular accident), history of Hypertension (Acute) Hyperlipidemia (Acute) Diabetes mellitus type 2, controlled (Acute) Bronchitis (Acute) Chest pain (Acute)
[2024-09-07] MEDS ORDERED: METHOTREXATE 2.5 MG TABLET PO SCH (16:00)
[2024-09-07] MEDS: methylPREDNISolone SUCCINATE 40 MG/ML VIAL IVP STA (16:25)
[2024-09-07] MEDS: FUROSEMIDE 20 MG/2 ML VIAL IVP STA (16:25)
[2024-09-07] MEDS: [UNRECOGNIZED DRUG - OTHER] SUBQ SCH (17:23)
[2024-09-08 05:02] LABS: HCT - HEMATOCRIT 28.4 % (37.0-47.0); HGB - HEMOGLOBIN 9.4 g/dL (12.0-16.0); LYMPHOCYTES # (AUTO) 0.3 10^3/uL (1.5-3.5); LYMPHOCYTES % (AUTO) 5.2 %; MEAN CORPUSCULAR HEMOGLOBIN 34.6 pg (27.0-31.0); MEAN CORPUSCULAR HGB CONC 33.1 g/dL (32.0-36.0); MEAN CORPUSCULAR VOLUME 104.4 fL (81.0-99.0); MEAN PLATELET VOLUME 9.8 fL (7.9-10.8); MONOCYTES # (AUTO) 0.3 10^3/uL (0.0-1.0); NEUTROPHILS # (AUTO) 5.6 10^3/uL (1.5-6.6); NEUTROPHILS % (AUTO) 89.5 %; PLT - PLATELET COUNT 286 10^3/uL (130-450); RED BLOOD COUNT 2.72 10^6/uL (4.20-5.40); RED CELL DISTRIBUTION WIDTH 14.6 % (12.0-15.0); WHITE BLOOD COUNT 6.2 x10^3/uL (4.8-10.8)
[2024-09-08 05:19] LABS: CALCIUM 8.8 mg/dL (8.5-10.3); CALCIUM, IONIZED 1.28 mmol/L (1.09-1.30); CREATININE 1.5 mg/dL (0.6-1.3); MAGNESIUM 1.6 mg/dL (1.7-2.3); PHOSPHORUS 4.2 mg/dL (2.5-5.0); POTASSIUM 4.5 mmol/L (3.5-4.5); VBG PH 7.363 (7.31-7.41)
[2024-09-08 07:09] LABS: RPR Non Reactive (Non Reactive)
[2024-09-08] MEDS: SITAGLIPTIN PHOSPHATE 100 MG PO SCH (08:27)
--- NOTE | 2024-09-08 09:30 | XRAY Report ---
PROCEDURE: XR Chest 1V INDICATIONS: abnormal lungs sounds TECHNIQUE: One view of the chest was acquired. COMPARISON: CT chest 09/05/2022. FINDINGS: Surgical changes and devices: None. Lungs and pleura: Right PICC line is present with distal tip projecting over the proximal SVC. Minim al costophrenic angle blunting bilaterally. Mediastinum: Mediastinal contours appear normal. Heart size is enlarged. Bones and chest wall: No suspicious bony lesions. Overlying soft tissues appear unremarkable. IMPRESSION: Cardiomegaly with increased vascularity suggestive of edema. Trace effusions are suspected. Reviewed by: Stephani Starks MD on 09/08/2024 9:28 AM PST Approved by: Stephani Starks MD on 09/08/2024 9:28 AM PST Station ID: [id number]
[2024-09-08] MEDS: FOLIC ACID 1 MG TABLET PO SCH (14:54)
[2024-09-08] MEDS: PRENATAL VITAMIN TABLET PO SCH (14:55)
[2024-09-08] MEDS: AMOX/CLAV 875 MG/125 MG TABLET PO SCH (14:55)
--- NOTE | 2024-09-08 15:27 | PT Plan of Care ---
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 Pt admitted with dizziness and fall, found to have Afib with RVR and pna. H/o CVA with L sided weakness, LUE>LLE. Pt lives at [facility] and [facility] with 4WW at baseline. Upon PT eval, pt has hoarse voice but is able to answer all questions appropriately. Transfers to EOB with CGA overall, modAx2 for SPT w/ FWW to b/s chair. LLE strength and mobility impairments are moderate with limited toe clearance during stepping but able to lift LLE for safe transfer. LUE mobility and strength severely limited with minimal active motion. Pt is a high fall risk and presenting below her baseline mobility. Pt will benefit from skilled PT in acute setting to improve activity tolerance and functional mobility. When medically clear, PT rec dc to SNF to address above impairments. Goals Improve bed mobility to: Modified Independent Improve supine to sit to: Modified Independent Improve sit to stand to: Contact Guard Improve sit to supine to: Contact Guard Improve gait ability to: Min A Assistive Device Used: Front Wheeled Walker Improve Sitting Balance to: Good Improve Standing Balance to: Fair PT Plan of Care Frequency 1-2x/day Duration Until goals are met Discharge Recommendations Discharge Location [facility] Facility DC Equipment Recommended Front wheeled walker Other has 4WW, may need FWW Transport Needs at Discharge Wheelchair van
--- NOTE | 2024-09-08 15:36 | OT Plan of Care ---
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 She did not lose consciousness, was noted to be hypotensive and tachycardic on EMS arrival. In the ER, multiple modalities were attempted to control her heart rate including IV metoprolol, IV diltiazem, IV fluids, IV amiodarone, IV digoxin all without effect. Cardiology was contacted by ER provider, they recommended amiodarone drip and consideration for CTA chest. Hospitalist was contacted for admission for A-fib RVR refractory to multimodal therapy. Head CT negative acute injury. Adm to ICU for further cardiac monitoring and BP control. Vitals stabilized and pt cleared for therapy evaluation . Met supine in bed, A&OX4, willing to participate with therapy. 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 Performed supine to sit CGA, sit to stand, and SPT bed to chair MIN- MOD Ax2 using RW Cues for sequencing and safety. Currently MOD A LB, MIN A UB ADLs. Overall presents with decreased endurance, activity tolerance and ADL status. Will benefit from cont OT services during acute stay. Rec d/c to SNF at this time. Goals - Activities of Daily Living Improve Upper Extremity Modified Independent Dressing to: Improve Lower Extremity Modified Independent Dressing to: Improve Grooming/Hygiene to: Modified Independent Improve Bathing to: Modified Independent Improve Toileting to: Modified Independent Plan Treatment Frequency 1x/day Duration Until goals are met -Discharge Recommendations Discharge Location [facility] Transport Needs at Discharge Wheelchair van
--- NOTE | 2024-09-08 16:29 | PROVIDER PROGRESS NOTE ---
Progress Note Progress Note Progress Note: September 08, 2024 4 PM Patient is sitting up in the chair in her room. Son is also at the bedside. Physical therapy has seen her and evaluated her. Although she is able to sit up, and do a stand pivot transfer to the chair she is completely exhausted. Very short of breath. Her baseline is to be able to get up, go to the bathroom herself, take a shower by her self, cook and clean. She cannot do that at this time. Diffuse joint pain, but especially in her hands wrist and knees really limits her. She is unable to take her usual immune modulating drugs for her arthritis because of recurrent infection that we are treating her for. So no methotrexate or Kevzara. I asked her about her low voice and why is it so soft. There are times that she is speaking and no sound is coming up. She said this started the week after she was discharged for her low magnesium level. No sore throat. No other focal deficits. Her vocal cords to stop working. Exam: Blood pressure 132/60, pulse 70, respirations 20, temperature 36.6, O2 sat 97% o n room air. She is a morbidly obese female who looks her stated age. 5 foot 8 inches tall, 104 kg. She just finished working with physical therapy and she is wiped out. She is short of breath as she sits in the chair, trying to speak to me and her son. She has laryngitis. I cannot hear anything she is saying. Neck is thick, unable to assess for JVD, but supple Lungs have diffuse wheezing with her tachypnea Regular rate and rhythm Abdomen is obese, soft, nontender with normal bowel sounds. She is eating 50 to 100% of her food. She had a bowel movement today. Extremities are large, trace edema. Neurologically she is alert and oriented to person, place, time and situation. Laryngitis within almost an audible voice. But no throat pain in back of throat does not have any exudate. No focal deficits. She is wiping her eyes, sitting up, sitting back down, turning around in the chair to make her self comfortable. Talking to her son. I reviewed her labs: Chemistry show a mild hyponatremia of 134. She has been with normal sodiums this admission. BUN is 43. Up from yesterday's 39. Creatinine is 1.5 up from yesterday's 1.3. Fasting glucose was 169 before breakfast. 127 before lunch. B12 is 1564, folate 9.3, procalcitonin 0.36. Yesterday her procalcitonin was 0.35. White cell count 6.2, hemoglobin 9.4, MCV 104, platelet 286 Assessment/plan 1. Pneumonia in an elderly patient with congestive heart failure from reduced ejection fraction and A-fib that is uncontrolled. Blood cultures are negative. White cell count is normal. She completed 3 days of IV antibiotic therapy yesterday on the . I switched her over to Augmentin today. She is to get a total of 7 days of antibiotic therapy. Procalcitonin levels say that she is safe to transition to orals and complete therapy. She has generalized weakness due to the ICU stay for a A-fib. It is a huge effort for her to get out of bed and do simple activity. She physical therapy has evaluated her and recommends SNF rehab therapy and she agrees to that. She was traced by social work today and the patient would like to go to [facility] I hope to discharge her tomorrow morning to start that next phase. After rehab she is determined to get back home. Her son supports her in that decision. 2. Atrial fibrillation with RVR. The medications finally kicked in! She was slowed to 50 by the morning of the , with continued afib. Then converted to Sinus. She is now MedSurg status since yesterday. Rate continues to be controlled in the 70s. She was dig toxic on November 04 with a level of 4.1. She has not received any digoxin since that day. I will recheck her levels tomorrow.Currently I will continue her amiodarone 200 mg daily, metoprolol 100 mg p.o. twice daily. She is also on a DOAC for anticoagulation. 3. Acute on chronic systolic heart failure with reduced ejection fraction. Echocardiogram done September 05 shows overall left ventricular systolic function is mild to moderately impaired with an ejection fraction of 45%. Mild global hypokinesis of LV contractility. Right ventricle size is normal. Right ventricle systolic function normal. No concerning valvular heart disease. Left atrium has moderate to severe increase in left atrial volume index. Moderate to severe right atrial enlargement. At home she is on amlodipine for high blood pressure, hydralazine twice daily for blood pressure (it is listed even though the dc med list from last admit says it was stopped), lisinopril 40 mg daily, metoprolol 100 mg p.o. twice daily and Januvia. For CHF, she is only on a beta-beti while here. The Januvia is a DPP 4 inhibitor but not an SGLT2. I had anticipated calling cardiology yesterday, however now that she is in sinus rhythm, I will not call. I started lasix 20 mg po the morning of the , but still so fluid overloaded by breath sounds, that I gave a one time IV lasix dose. Minimal urine output with that. She only urinated 470 cc yesterday. However she took an 1190 cc orally. And before I stop her amiodarone drip she took in 1665. All IV fluids have been stopped as of today since she is going to oral antibiotics. No more maintenance IV fluids. No amiodarone drip. I will caution her not to drink more than 1500 cc a day. In general, Treatment for congestive heart failure include core measure drugs that are now spironolactone, Lasix, Entresto, and SGLT2 inhibitor. Our formulary does not have the last 2 drugs. I would only be able to give her spironolactone and Lasix. I will resume her home lisinopril.I am not resuming the hydralazine or the amlodipine. 4. Trichomonas started on po flagyl on admission once it was verfied that she did not receive treatment for that. As I think about her, there is nothing to suggest that she has other STDs. There is no vaginal ulcers. No vaginal discharge. urine GC and chlamydia Has been ordered but is pending. Her RPR is negative. 5. Lymphadenopathy. CT done for evaluation of pneumonia shows suspected lymphoma with enlarged supraclavicular fossa lymph nodes, mediastinal lymphadenopathy, and large intrapulmonary lymph nodes. The left supraclavicular fossa node would be amenable to ultrasound-guided biopsy for confirmation. I will make sure that this is emphasized in her md summary for followup with her PCP OCTAVIO Jane. 6. Rheumatoid Arthritis If possible, I am asking her to bring in her own medications which includes the methotrexate and the monoclonal antibody injectable and give them to her as appropriate. However, after speaking to pharmacy, she theoreticaly has an infection we are treating and those meds are contraindicated so I had to cancel the orders. In the meantime, I will use nonsteroidals in the form of Toradol 15 mg IV push Q6 as needed for total of 5 doses to help with pain.She says this is helping.I am trying to avoid opioids. Current Medications Current Medications Current Medications: Current Medications Generic Name Dose Route Start Last Admin Trade Name Maria Luisa PRN Reason Stop Dose Admin Acetaminophen 1,000 mg 09/05/24 14:00 09/08/24 14:54 Acetaminophen 500 Mg Tablet PO 1,000 mg TID MARISA Administration Amiodarone HCl 200 mg 09/07/24 09:00 09/08/24 08:24 Amiodarone 200 Mg Tablet PO 200 mg DAILY MARISA Administration Amoxicillin/Clavulanate Potassium 1 tab 09/08/24 14:00 09/08/24 14:55 Amox/Clav 875 Mg/125 Mg Tablet PO 09/09/24 09:01 1 tab BID MARISA Administration Apixaban 2.5 mg 09/05/24 09:00 09/08/24 08:24 Apixaban 2.5 Mg Tablet PO 2.5 mg BID MARISA Administration Atorvastatin Calcium 20 mg 09/05/24 21:00 09/07/24 20:52 Atorvastatin 10 Mg Tablet PO 20 mg QPM MARISA Administration Diclofenac Sodium 2 gm 09/05/24 13:15 09/08/24 08:22 Diclofenac Sodium 1% Gel 50 Gm Tube TOP 2 gm QID PRN Administration Mild Pain (Level 1-3) Diphenhydramine HCl 25 mg 09/06/24 20:59 09/07/24 23:08 Diphenhydramine Inj 50 Mg/Ml Vial IVP 25 mg Q6H PRN Administration Allergy Symptoms Ferrous Sulfate 325 mg 09/06/24 09:00 09/08/24 08:23 Ferrous Sulfate 325 Mg Tablet PO 325 mg DAILY MARISA Administration Folic Acid 1 mg 09/08/24 13:45 09/08/24 14:54 Folic Acid 1 Mg Tablet PO 1 mg DAILY MARISA Administration Furosemide 20 mg 09/07/24 09:00 09/08/24 08:24 Furosemide 20 Mg Tablet PO 20 mg DAILY MARISA Administration Gabapentin 300 mg 09/04/24 22:31 09/08/24 08:23 Gabapentin 300 Mg Capsule PO 300 mg BID MARISA Administration Guaifenesin 1,200 mg 09/05/24 21:00 09/08/24 08:24 Guaifenesin 600 Mg Tablet PO 1,200 mg BID MARISA Administration Insulin Human Lispro 1 - 5 unit 09/05/24 08:00 09/08/24 12:05 Insulin Lispro 300 Unit/3 Ml Pen SUBQ Not Given 0800,1200,1700,2100 [facility] Protocol Ipratropium [place] 0.5 mg 09/07/24 11:00 09/08/24 15:02 Ipratropium 0.2 Mg/Ml Neb INH 0.5 mg RTQ4H MARISA Administration Ketorolac Tromethamine 15 mg 09/06/24 20:54 09/08/24 08:23 Ketorolac 15 Mg/Ml Vial IVP 09/11/24 20:53 15 mg Q6HR PRN Administration Severe Pain (Level 7-10) Levalbuterol HCl 1.25 mg 09/07/24 11:00 09/08/24 15:02 Levalbuterol 1.25 Mg/3 Ml Neb INH 1.25 mg RTQ4H MARISA Administration Lidocaine 1 patch 09/06/24 21:10 09/08/24 08:26 Lidocaine Patch 4% TOP 1 patch DAILY MARISA Administration Magnesium Oxide 400 mg 09/06/24 08:00 09/08/24 08:24 Magnesium Oxide 400 Mg Tablet PO 400 mg DAILYWM MARISA Administration Metoprolol Tartrate 100 mg 09/04/24 22:31 09/08/24 08:23 Metoprolol Tartrate 50 Mg Tablet PO 100 mg BID MARISA Administration Metronidazole 500 mg 09/05/24 17:00 09/08/24 08:24 Metronidazole 250 Mg Tablet PO 09/12/24 16:59 500 mg BIDWM MARISA Administration Pantoprazole Sodium 40 mg 09/06/24 07:00 09/08/24 06:06 Pantoprazole 40 Mg Tablet PO 40 mg QDAC MARISA Administration Sitagliptin 1 each 09/08/24 09:00 09/08/24 08:27 Phosphate [Januvia] PO Not Given 100 Mg Tablet DAILY MARISA Multivit/Folic Acid/Iron 1 tab 09/08/24 14:00 09/08/24 14:55 Vitamin Tablet PO 1 tab DAILYWM MARISA Administration Sodium Chloride 10 ml 09/05/24 01:00 09/08/24 08:26 Sodium Chloride Flush 0.9% 10 Ml Syringe IVP 10 ml 0100,0900,1700 MARISA Administration Sodium Chloride 10 ml 09/04/24 22:31 09/07/24 17:06 Sodium Chloride Flush 0.9% 10 Ml Syringe IVP 10 ml PRN PRN Administration NEEDED PER PROVIDER ORDERS Sterile Water 30 ml 09/05/24 18:00 09/08/24 08:22 Water For Injection,Sterile 10 Ml Vial MC 30 ml BID MARISA Administration Tizanidine HCl 4 mg 09/05/24 00:30 09/07/24 10:57 Tizanidine 4 Mg Tablet PO 4 mg TID PRN Administration Spasms
[2024-09-09 05:30] LABS: BASOPHILS % (AUTO) 0.1 %; EOSINOPHILS # (AUTO) 0.2 10^3/uL (0.0-0.7); EOSINOPHILS % (AUTO) 3.1 %; HCT - HEMATOCRIT 28.6 % (37.0-47.0); HGB - HEMOGLOBIN 9.3 g/dL (12.0-16.0); LYMPHOCYTES # (AUTO) 0.7 10^3/uL (1.5-3.5); LYMPHOCYTES % (AUTO) 9.7 %; MEAN CORPUSCULAR HEMOGLOBIN 34.4 pg (27.0-31.0); MEAN CORPUSCULAR HGB CONC 32.5 g/dL (32.0-36.0); MEAN CORPUSCULAR VOLUME 105.9 fL (81.0-99.0); MEAN PLATELET VOLUME 9.7 fL (7.9-10.8); MONOCYTES # (AUTO) 0.8 10^3/uL (0.0-1.0); MONOCYTES % (AUTO) 11.7 %; PLT - PLATELET COUNT 326 10^3/uL (130-450); RED CELL DISTRIBUTION WIDTH 14.5 % (12.0-15.0); WHITE BLOOD COUNT 6.7 x10^3/uL (4.8-10.8)
[2024-09-09 05:49] LABS: CALCIUM 8.7 mg/dL (8.5-10.3); CREATININE 1.4 mg/dL (0.6-1.3); DIGOXIN 0.9 ng/mL; POTASSIUM 4.5 mmol/L (3.5-4.5)
[2024-09-09] MEDS: lisinopriL 20 MG TABLET PO SCH (09:03)
--- NOTE | 2024-09-09 11:53 | PROVIDER PROGRESS NOTE ---
Progress Note Progress Note Progress Note: September 09, 2024 11:45 AM Yesterday she was wheezing. Notably tachypneic and struggling to just get comfortable in the chair after working with physical therapy. I may have gotten to her at a bad time since she was "being worked out". Today, very comfortable. No wheezing. Respiratory therapy is asking me to de- escalate the scheduling of her nebs since her lungs are very clear today. Yet, after she worked with physical therapy again today, she became very short of breath. Took her quite a bit of time to recover after working with PT. In essence she is very deconditioned. Today is an avoidable day. I think she is medically cleared to go to a retirement tomorrow. She identified Kathryn Mcgraw. Authorizations have been requested. Exam: Temperature 36.6, heart rate 79, respirations 20, blood pressure 135/67 5 foot 8 inches tall, 104 kg Alert, oriented to person place and time. Voice continues to be almost inaudible due to some type of laryngitis that is not painful. No sore throat. This been present since she was admitted for hypomagnesemia. No aspiration no dysphagia when she swallows. Shotty neck adenopathy but is a little thick to assess for JVD Lungs are clear. No increased respiratory effort. Regular rate and rhythm. I am discontinuing telemetry today. She has been in sinus since I got her out of the ICU. Abdomen is obese, soft, nontender. Normal bowel sounds. Eating 25% of her food this morning. I reviewed her labs: Sodium is 134, potassium chloride carbon dioxide are normal. BUN is 42, creatinine 1.4. Yesterday she was 43 and 1.5. Fasting glucose 148 before breakfast, before lunch was 168 White cell count is normal at 6.7. Hemoglobin stable at 9.3. MCV 105.9. Platelets 09/05/2025. Blood cultures from September 05 are negative at 48 hours RPR is nonreactive. Urinary Legionella is negative. I repeated her dig level since her September 06 almost 4.1. Today's level is 0.9. She has not had any digoxin since September 06. Assessment/plan 1. Pneumonia in an elderly patient with congestive heart failure from reduced ejection fraction and A-fib that is uncontrolled. Blood cultures are negative. White cell count is normal. She completed 3 days of IV antibiotic therapy yesterday on the . I switched her over to Augmentin 09/08/24. She is to get a total of 7 days of antibiotic therapy. Procalcitonin levels say that she is safe to transition to orals and complete therapy. Today is day 5 of 7. She has generalized weakness due to the ICU stay for a A-fib. It is a huge effort for her to get out of bed and do simple activity. She physical therapy has evaluated her and recommends SNF rehab therapy and she agrees to that. She was choiced by social work today (not yesterday as I had requested) and the patient would like to go to [facility]. So the notices it been sent out. We are now await authorization from insurance company and acceptance from the nursing homes. Today is avoidable day 1. 2. Atrial fibrillation with RVR. After many days of rapid heart rate that was not responding to our rate lowering drugs, and a toxic dig level of 4.1, the medications finally kicked in! She was slowed to 50 by the morning of the , with continued afib. Then converted to Sinus. She is now MedSurg status since 09/07. Rate continues to be controlled in the 70s. She was dig toxic on November 04 with a level of 4.1. She has not received any digoxin since that day. I checked reduced level today to monitor for toxicity and she is 0.9. Currently I will continue her amiodarone 200 mg daily, metoprolol 100 mg p.o. twice daily. She is also on a DOAC for anticoagulation. 3. Acute on chronic systolic heart failure with reduced ejection fraction. Echocardiogram done September 05 shows overall left ventricular systolic function is mild to moderately impaired with an ejection fraction of 45%. Mild global hypokinesis of LV contractility. Right ventricle size is normal. Right ventricle systolic function normal. No concerning valvular heart disease. Left atrium has moderate to severe increase in left atrial volume index. Moderate to severe right atrial enlargement. At home she is on amlodipine for high blood pressure, hydralazine twice daily for blood pressure (it is listed even though the dc med list from last admit says it was stopped), lisinopril 40 mg daily, metoprolol 100 mg p.o. twice daily and Januvia. For CHF, she is only on a beta-beti while here. The Auguvia is a DPP 4 inhibitor but not an SGLT2. I had anticipated calling cardiology yesterday, however now that she is in sinus rhythm, I will not call. I started lasix 20 mg po the morning of the , but still so fluid overloaded by breath sounds, that I gave a one time IV lasix dose. Minimal urine output with that. Her fluid balance was +2858 on the fourth. +2386 on the fifth. +685 on the 6th. Today only 20 cc positive. All IV fluids have been stopped as of today since she is going to oral antibiotics. No more maintenance IV fluids. No amiodarone drip. I will caution her not to drink more than 1500 cc a day. In general, Treatment for congestive heart failure include core measure drugs that are now spironolactone, Lasix, Entresto, and SGLT2 inhibitor. Our formulary does not have the last 2 drugs. I would only be able to give her spironolactone and Lasix. I will resume her home lisinopril. I am not resuming the hydralazine or the amlodipine. Still not negative enough for what I would like so I am going to give her another dose of Lasix but this time at 40 mg IV push since 20 mg did not add much to her output. 4. Trichomonas started on po flagyl on admission once it was verfied that she did not receive t reatment for that. As I think about her, there is nothing to suggest that she has other STDs. There is no vaginal ulcers. No vaginal discharge. urine GC and chlamydia Has been ordered but is still pending. Her RPR is negative. 5. Lymphadenopathy. CT done for evaluation of pneumonia shows suspected lymphoma with enlarged supraclavicular fossa lymph nodes, mediastinal l ymphadenopathy, and large intrapulmonary lymph nodes. The left supraclavicular fossa node would be amenable to ultrasound-guided biopsy for confirmation. I will make sure that this is emphasized in her dc summary for followup with her PCP OCTAVIO Jane. 6. Rheumatoid Arthritis If possible, I am asking her to bring in her own medications which includes the methotrexate and the monoclonal antibody injectable and give them to her as appropriate. However, after speaking to pharmacy, she theoreticaly has an infection we are treating and those meds are contraindicated so I had to cancel the orders. In the meantime, I will use nonsteroidals in the form of Toradol 15 mg IV push Q6 as needed for total of 5 doses to help with pain.She says this is helping.I am trying to avoid opioids. The Kevzara would also be prohibitively expensive in the retirement. So I will not be giving it to her in the retirement. It is a 200 mg subcutaneous dose every 14 days. Current Medications Current Medications Current Medications: Current Medications Generic Name Dose Route Start Last Admin Trade Name Freq PRN Reason Stop Dose Admin Acetaminophen 1,000 mg 09/05/24 14:00 09/09/24 13:40 Acetaminophen 500 Mg Tablet PO 1,000 mg TID MARISA Administration Amiodarone HCl 200 mg 09/07/24 09:00 09/09/24 09:02 Amiodarone 200 Mg Tablet PO 200 mg DAILY MARISA Administration Apixaban 2.5 mg 09/05/24 09:00 09/09/24 09:03 Apixaban 2.5 Mg Tablet PO 2.5 mg BID MARISA Administration Atorvastatin Calcium 20 mg 09/05/24 21:00 09/08/24 21:47 Atorvastatin 10 Mg Tablet PO 20 mg QPM MARISA Administration Diclofenac Sodium 2 gm 09/05/24 13:15 09/09/24 03:31 Diclofenac Sodium 1% Gel 50 Gm Tube TOP 2 gm QID PRN Administration Mild Pain (Level 1-3) Diphenhydramine HCl 25 mg 09/06/24 20:59 09/07/24 23:08 Diphenhydramine Inj 50 Mg/Ml Vial IVP 25 mg Q6H PRN Administration Allergy Symptoms Ferrous Sulfate 325 mg 09/06/24 09:00 09/09/24 09:02 Ferrous Sulfate 325 Mg Tablet PO 325 mg DAILY MARISA Administration Folic Acid 1 mg 09/08/24 13:45 09/09/24 09:24 Folic Acid 1 Mg Tablet PO 1 mg DAILY MARISA Administration Furosemide 20 mg 09/07/24 09:00 09/09/24 09:02 Furosemide 20 Mg Tablet PO 20 mg DAILY MARISA Administration Gabapentin 300 mg 09/04/24 22:31 09/09/24 09:02 Gabapentin 300 Mg Capsule PO 300 mg BID MARISA Administration Guaifenesin 1,200 mg 09/05/24 21:00 09/09/24 09:02 Guaifenesin 600 Mg Tablet PO 1,200 mg BID MARISA Administration Insulin Human Lispro 1 - 5 unit 09/05/24 08:00 09/09/24 12:45 Insulin Lispro 300 Unit/3 Ml Pen SUBQ 1 unit 0800,1200,1700,2100 MARISA Administration Protocol Ipratropium [place] 0.5 mg 09/09/24 10:28 09/09/24 12:14 Ipratropium 0.2 Mg/Ml Neb INH 0.5 mg RTQ4H PRN Administration Wheezing Levalbuterol HCl 1.25 mg 09/09/24 10:33 09/09/24 12:14 Levalbuterol 1.25 Mg/3 Ml Neb INH 1.25 mg RTQ4H PRN Administration Wheezing Lidocaine 1 patch 09/06/24 21:10 09/09/24 09:03 Lidocaine Patch 4% TOP 1 patch DAILY MARISA Administration Lisinopril 40 mg 09/09/24 09:00 09/09/24 09:03 Lisinopril 20 Mg Tablet PO 40 mg DAILY MARISA Administration Magnesium Oxide 400 mg 09/06/24 08:00 09/09/24 09:02 Magnesium Oxide 400 Mg Tablet PO 400 mg DAILYWM MARISA Administration Metoprolol Tartrate 100 mg 09/04/24 22:31 09/09/24 09:06 Metoprolol Tartrate 50 Mg Tablet PO 100 mg BID MARISA Administration Metronidazole 500 mg 09/05/24 17:00 09/09/24 09:02 Metronidazole 250 Mg Tablet PO 09/12/24 16:59 500 mg BIDWM MARISA Administration Pantoprazole Sodium 40 mg 09/06/24 07:00 09/09/24 05:15 Pantoprazole 40 Mg Tablet PO 40 mg QDAC MARISA Administration Sitagliptin 1 each 09/08/24 09:00 09/09/24 09:04 Phosphate [Januvia] PO Not Given 100 Mg Tablet DAILY MARISA Multivit/Folic Acid/Iron 1 tab 09/08/24 14:00 09/09/24 09:02 Vitamin Tablet PO 1 tab DAILYWM MARISA Administration Sodium Chloride 10 ml 09/05/24 01:00 09/09/24 09:04 Sodium Chloride Flush 0.9% 10 Ml Syringe IVP 10 ml 0100,0900,1700 MARISA Administration Sodium Chloride 10 ml 09/04/24 22:31 09/08/24 21:52 Sodium Chloride Flush 0.9% 10 Ml Syringe IVP 10 ml PRN PRN Administration NEEDED PER PROVIDER ORDERS Tizanidine HCl 4 mg 09/05/24 00:30 09/09/24 03:36 Tizanidine 4 Mg Tablet PO 4 mg TID PRN Administration Spasms
[2024-09-09] MEDS: LEVALBUTEROL 1.25 MG/3 ML NEB INH PRN (12:14)
[2024-09-09] MEDS: IPRATROPIUM 0.2 MG/ML NEB INH PRN (12:14)
--- NOTE | 2024-09-09 12:35 | XRAY Report ---
PROCEDURE: XR Chest 1V INDICATIONS: sudden severe sob TECHNIQUE: One view of the chest was acquired. COMPARISON: Chest x-ray 09/08/2024 FINDINGS: Surgical changes and devices: Right PICC line is unchanged Lungs and pleura: Overall appearance of increased pulmonary vascularity increased compared to prior exam. Mediastinum: Mediastinal contours appear normal. Heart size is enlarged. Bones and chest wall: No suspicious bony lesions. Overlying soft tissues appear unremarkable. IMPRESSION: Increased appearance of prominent pulmonary vascularity suggestive of edema compared to prior. Reviewed by: Stephani Starks MD on 09/09/2024 12:33 PM PST Approved by: Stephani Starks MD on 09/09/2024 12:33 PM PST Station ID: [id number]
[2024-09-09] MEDS: METOPROLOL 5 MG/5 ML VIAL IVP PRN (17:10)
[2024-09-09] MEDS: FUROSEMIDE 20 MG/2 ML VIAL IVP STA (17:22)
[2024-09-09] MEDS: diltiaZEM INJ 5 MG/ML VIAL IVP ONE (19:11)
[2024-09-09] MEDS: PROCAINAMIDE IV SCH (19:15)
[2024-09-09] MEDS: SODIUM CHLORIDE 0.9% IV SCH (19:15)
[2024-09-09] MEDS: PROCAINAMIDE 100 MG/1 ML 10 ML MDV IV ONE (19:31)
--- NOTE | 2024-09-09 20:38 | PROVIDER PROGRESS NOTE ---
Progress Note Progress Note Progress Note: patient finishing up procainamide infusion on the monitor in ICU with acute onset of restlessness, tachypnea dyspnea and decreased blood pressure. Blood pressure as low as 71/48. She is symptomatic. She is tired and restless. On exam she has decreased breath sounds at the bases and midlung field rales. This is bilaterally. Stat chest x-ray does show increased pulmonary markings. I believe that she is having a little bit of flash pulmonary edema secondary to her acute onset of atrial fibrillation. At this time she remains in A-fib but she is rate controlled in the 70s to 80s. She is being given a breathing treatment. I am also giving her 20 mg of Lasix IV. She was observed in the ICU for approximately 1 more hour after procainamide infusion was discontinued. This patient has a degree of critical illness that is threatening one or more vital organ systems. There is a probability of life threatening deterioration of his condition. I spent 30 minutes of critical care time with this patient today. This included coordination of care, review and ordering of lab work, independent interpretation of chest x-ray, and adjusting medications.
[2024-09-09] MEDS: FUROSEMIDE 20 MG/2 ML VIAL IVP ONE (20:41)
--- NOTE | 2024-09-09 21:01 | XRAY Report ---
PROCEDURE: XR Chest 1V INDICATIONS: wheezing TECHNIQUE: One view of the chest was acquired. COMPARISON: Same day chest x-ray. FINDINGS: Surgical changes and devices: Stable right PICC. Lungs and pleura: Prominent interstitial markings are redemonstrated. Bilateral pleural effusions, l eft greater than right. Mediastinum: Mediastinal contours appear normal. Heart size is enlarged. Bones and chest wall: No suspicious bony lesions. Overlying soft tissues appear unremarkable. IMPRESSION: Redemonstration of findings consistent with volume overload, similar to minimally improved compared t o prior. Reviewed by: Renato Mireles MD on 09/09/2024 9:00 PM PST Approved by: Renato Mireles MD on 09/09/2024 9:00 PM PST Station ID: [id number]
--- NOTE | 2024-09-10 10:24 | PROVIDER PROGRESS NOTE ---
Progress Note Progress Note Progress Note: September 10, 2024 10 AM Patient went back into sudden A-fib last night. Short of breath. Dyspneic. Most likely flash pulmonary edema from the fast rate. I gave her Lopressor 5 mg IV push no response. Diltiazem 15 mg IV push no response. Gave her [facility] protocol Procan over 1 hour, and almost completed the 2000 mg but pressures were dropping so we stopped the Procan. 70/80. Pulse in the 80s.Since then her blood pressure and pulse have rebounded. She will go down to 80, the 90, then get as high as 130 and then come back down again. Still in A-fib. Very easily short of breath. Voice is still gone.Short of breath at rest. And with talking to me. Just trying to get out a couple of sentences causes her to get very tachypneic to 26. Her son was in the room when I spoke to him saying that we are a critical access hospital. I have already treated her as much as I can. I was able to successfully converted to sinus rhythm using multiple medications in the ICU. But I feel that she needs to be transferred to a higher level of care. I reviewed her past medical history. She use to be taken care of by [facility] 11/2022, and then transferred to our community clinic 03/2023 but hasn't been seen since then.. She moved to [place] in 2022 and all of her past medical history is from [place] which we do not have. PMH: 1. CAD with 4 stents in the heart 1999 2. 2 strokes. 2014, and 2021 with a carotid stent placed in 2021. 1 stroke occurred after she stopped her anticoagulation for a neck biopsy. She has residual left body weakness and uses a walker. 3 Hodgkin's lymphoma 2014. Her current CT scan continues to show lymphadenopathy 4. Hysterectomy 5. Diabetes 6. Hypertension 7. Bright red blood per rectum March 2023, due to hemorrhoids Social history [id number] history. Half a pack per day since 1982. No history of alcohol abuse. She was from [place] and moved [place] in 2022 to live with her son. Exam: Temperature 36.5, heart rate 117, respirations 20 at rest not doing anything and not speaking, blood pressure 149/79. She is a short statured obese female with almost no voice. She is with severe laryngitis and I cannot hear her most of the time. But when I do hear her, her symptom structure is correct. She is lucid.Son is at the bedside. Neck is really too thick for me to assess for JVD Lungs have coarse rhonchi and almost gurgly but they are not crackles. No tachypnea unless I asked her to restart speaking or if she gets excited or if she is sitting up and down. Irregular rate and rhythm. Abdomen is soft, nontender. No masses. Extremities trace edema. No severe edema. Neurologically she is alert and oriented person, place, time. Able to tell me that her old family law paralegal was in [place] and she really does not have a new family law paralegal here. Labs reviewed by me CBC, BMP, troponin and BNP are pending Chest x-ray last night had prominent interstitial markings redemonstrated. Bilateral pleural effusions left greater than right. Assessment/plan 1. Atrial fibrillation with RVR. After many days of rapid heart rate that was not responding to our rate lowering drugs, and a toxic dig level of 4.1, the medications finally kicked in! She was slowed to 50 by the morning of the , with continued afib. Then converted to Sinus. She is now MedSurg status since 09/07. Rate stayed controlled in the 70s. She was dig toxic on November 04 with a level of 4.1. She has not received any digoxin since that day. I checked reduced level 09/09 to monitor for toxicity and she is 0.9. I continued her amiodarone 200 mg daily, metoprolol 100 mg p.o. twice daily. She is also on a DOAC for anticoagulation. Because of last night's recurrent A-fib with RVR. The put her into pulmonary edema again. I reached out to cardiology at [facility] today. I spoke to [facility] cardiology and Dr. Montgomery was on-call. He really feels that there is nothing more he can offer. He just encourages me to increase her metoprolol. Goal of 150 mg twice daily starting today. Lopressor IV push as needed. He even suggested digoxin. I explained that she had been dig toxic and yesterday's level was normal. He said there is no reason for her not to go back on dig again. He even said that I could go to [facility]. The ejection fraction of 45% was not an absolute contraindication. As such I have kept her on telemetry. I am increasing her metoprolol to 150 mg p.o. twice daily. Making sure she is on dig again but I will only load up 0.125 mg IV push x 3 recheck levels in 24 hours. She is not stable for transfer to a half-way today. Back to acute care status. 2. Acute on chronic systolic heart failure with reduced ejection fraction. Echocardiogram done September 05 shows overall left ventricular systolic function is mild to moderately impaired with an ejection fraction of 45%. Mild global hypokinesis of LV contractility. Right ventricle size is normal. Right ventricle systolic function normal. No concerning valvular heart disease. Left atrium has moderate to severe increase in left atrial volume index. Moderate to severe right atrial enlargement. At home she is on amlodipine for high blood pressure, hydralazine twice daily for blood pressure (it is listed even though the dc med list from last admit says it was stopped), lisinopril 40 mg daily, metoprolol 100 mg p.o. twice daily and Januvia. For CHF, she is only on a beta-beti while here. The Januvia is a DPP 4 inhibitor but not an SGLT2. I had anticipated calling cardiology yesterday, however now that she is in sinus rhythm, I will not call. I started lasix 20 mg po the morning of the , but still so fluid overloaded by breath sounds, that I gave a one time IV lasix dose. Minimal urine output with that. Her fluid balance was +2858 on the fourth. +2386 on the fifth. +685 on the 6th. I gave an extra dose of lasix IVP and -1085 yesterday. Today -560 so far. All IV fluids have been stopped as of today since she is going to oral antibiotics. No more maintenance IV fluids. No amiodarone drip. I cautioned her not to drink more than 1500 cc a day. In general, Treatment for congestive heart failure include core measure drugs that are now spironolactone, Lasix, Entresto, and SGLT2 inhibitor. Our formulary does not have the last 2 drugs. I would only be able to give her spironolactone and Lasix. I will resume her home lisinopril. I am not resuming the hydralazine or the amlodipine. Changing her Lasix dose to 20 mg IV push twice daily. 3. Pneumonia in an elderly patient with congestive heart failure from reduced ejection fraction and A-fib that is uncontrolled. Blood cultures are negative. White cell count is normal. She completed 3 days of IV antibiotic therapy yesterday on the . I switched her over to Augmentin 09/08/24. She is to get a total of 7 days of antibiotic therapy. Procalcitonin levels say that she is safe to transition to orals and complete therapy. Today is day 6 of 7. She has generalized weakness due to the ICU stay for a A-fib. It is a huge effort for her to get out of bed and do simple activity. She physical therapy has evaluated her and recommends SNF rehab therapy and she agrees to that. She was choiced by social work today (not yesterday as I had requested) and the patient would like to go to [email or web address]. So the notices it been sent out. We are now await authorization from insurance company and acceptance from the nursing homes. Today was an avoidable day. But she is not going to [facility] because of her A-fib and RVR today. Hopefully she will be stable enough to go on Thursday the 4. Trichomonas started on po flagyl on admission once it was verfied that she did not receive treatment for that. As I think about her, there is nothing to suggest that she has other STDs. There is no vaginal ulcers. No vaginal discharge. urine GC and chlamydia Has been ordered but is still pending. Her RPR is negative. 5. Lymphadenopathy. CT done for evaluation of pneumonia shows suspected lymphoma with enlarged supraclavicular fossa lymph nodes, mediastinal lymphadenopathy, and large intrapulmonary lymph nodes. The left supraclavicular fossa node would be amenable to ultrasound-guided biopsy for confirmation. I will make sure that this is emphasized in her dc summary for followup with her PCP OCTAVIO Jane. 6. Rheumatoid Arthritis If possible, I am asking her to bring in her own medications which includes the methotrexate and the monoclonal antibody injectable and give them to her as appropriate. However, after speaking to pharmacy, she theoreticaly has an infection we are treating and those meds are contraindicated so I had to cancel the orders. In the meantime, I will use nonsteroidals in the form of Toradol 15 mg IV push Q6 as needed for total of 5 doses to help with pain.She says this is helping.I am trying to avoid opioids. The Kevzara would also be prohibitively expensive in the half-way. So I will not be giving it to her in the half-way. It is a 200 mg subcutaneous dose every 14 days. Between seeing the patient twice, speaking to [facility], 38 minutes was spent's with the patient today
[2024-09-10] MEDS: DIGOXIN 500 MCG/2 ML AMP IVP SCH (17:45)
[2024-09-10 17:46] LABS: CALCIUM 9.4 mg/dL (8.5-10.3); CREATININE 0.9 mg/dL (0.6-1.3); POTASSIUM 4.9 mmol/L (3.5-4.5)
[2024-09-10] MEDS: FUROSEMIDE 20 MG/2 ML VIAL IVP SCH (18:08)
[2024-09-10 18:26] LABS: BASOPHILS % (AUTO) 0.1 %; EOSINOPHILS # (AUTO) 0.2 10^3/uL (0.0-0.7); EOSINOPHILS % (AUTO) 3.4 %; HCT - HEMATOCRIT 31.2 % (37.0-47.0); HGB - HEMOGLOBIN 10.1 g/dL (12.0-16.0); LYMPHOCYTES # (AUTO) 0.6 10^3/uL (1.5-3.5); LYMPHOCYTES % (AUTO) 9.5 %; MEAN CORPUSCULAR HEMOGLOBIN 34.2 pg (27.0-31.0); MEAN CORPUSCULAR HGB CONC 32.4 g/dL (32.0-36.0); MEAN CORPUSCULAR VOLUME 105.8 fL (81.0-99.0); MEAN PLATELET VOLUME 9.2 fL (7.9-10.8); MONOCYTES # (AUTO) 1.1 10^3/uL (0.0-1.0); MONOCYTES % (AUTO) 16.7 %; NEUTROPHILS # (AUTO) 4.7 10^3/uL (1.5-6.6); PLT - PLATELET COUNT 338 10^3/uL (130-450); RED BLOOD COUNT 2.95 10^6/uL (4.20-5.40); RED CELL DISTRIBUTION WIDTH 14.7 % (12.0-15.0); WHITE BLOOD COUNT 6.8 x10^3/uL (4.8-10.8)
[2024-09-10] MEDS: METOPROLOL TARTRATE 50 MG TABLET PO SCH (20:48)
[2024-09-11 05:39] LABS: BASOPHILS % (AUTO) 0.1 %; EOSINOPHILS # (AUTO) 0.2 10^3/uL (0.0-0.7); EOSINOPHILS % (AUTO) 2.8 %; HCT - HEMATOCRIT 31.6 % (37.0-47.0); HGB - HEMOGLOBIN 10.1 g/dL (12.0-16.0); LYMPHOCYTES # (AUTO) 0.8 10^3/uL (1.5-3.5); LYMPHOCYTES % (AUTO) 10.8 %; MEAN CORPUSCULAR VOLUME 106.4 fL (81.0-99.0); MEAN PLATELET VOLUME 9.2 fL (7.9-10.8); MONOCYTES # (AUTO) 1.2 10^3/uL (0.0-1.0); MONOCYTES % (AUTO) 16.3 %; NEUTROPHILS % (AUTO) 69.6 %; PLT - PLATELET COUNT 355 10^3/uL (130-450); RED BLOOD COUNT 2.97 10^6/uL (4.20-5.40); RED CELL DISTRIBUTION WIDTH 14.7 % (12.0-15.0); WHITE BLOOD COUNT 7.1 x10^3/uL (4.8-10.8)
[2024-09-11 05:52] LABS: CALCIUM 9.7 mg/dL (8.5-10.3); CREATININE 0.9 mg/dL (0.6-1.3); POTASSIUM 4.2 mmol/L (3.5-4.5)
[2024-09-11] MEDS ORDERED: METOPROLOL 5 MG/5 ML VIAL IVP PRN (05:59)
[2024-09-11] MEDS: METOPROLOL 5 MG/5 ML VIAL IVP ONE ×3 (06:42→20:38)
[2024-09-11] MEDS: diltiaZEM INJ 5 MG/ML VIAL IVP ONE ×2 (09:26→20:20)
--- NOTE | 2024-09-11 12:35 | PROVIDER PROGRESS NOTE ---
Progress Note Progress Note Progress Note: September 11, 2024 12:30 PM and 3:07 PM she is just miserable. Short of breath. Cannot do anything without completely losing her air. Then she starts to wheeze. I think she is having cardiac asthma. I gave her diltiazem this morning and we had a momentary reprieve for her heart rate went down to 80s. That has started to climb back up again and I can see that it is in the 130s. Currently on metoprolol 150 mg twice daily. Amiodarone 200 mg a day. I have given her 3 dig doses of 0.125. I do not want to give her 0.25 because she was dig toxic the last time we did this. "What is going to happen". I explained to her that I did try and get her to an upper level of care because I feel like I have done the most I can for her. But the response was that I could still push drugs here and try and control her heart rate. That I did not need to transfer her. I am good to be trying more and more today. Son is at the bedside as I have this conversation with her. I really feel like I am going to push for transfer again tomorrow if I do not have success today. Exam: Temperature is 36.5. Last heart rate was 86. That was recorded. Currently 130 on telemetry. Blood pressure 152/82. A morbidly obese short statured elderly female sitting upright in bed at 45 degrees watching one of the drastic parked obese. I ask if it is a good movie and she shrugs her shoulders and purses her lips and says "sort of". She is in respiratory distress. Mildly tachypneic in the 20s sitting up in bed. I really do not see JVD but she has a thick short neck Wheezing in the right lung and crackles in the left lung A fast irregular heart rate on cardiac exam with the PMI is laterally displaced Abdomen is protuberant, soft, nontender, obese. Is eating about 25% of her food today. And yesterday. 2/ when she was in sinus and controlled with her CHF and rate she was eating 100% of her food. So the CHF is affected her appetite and her ability to take p.o./ 09/09 she ate 0%. No pedal edema Neurologically alert and oriented person, place, situation and no focal deficits. Her main neurological deficit is generalized weakness due to be being bedbound, and very short of breath. I reviewed her labs: BMP compared to yesterday shows that her hyponatremia is resolved with a normal sodium of 135. Hyperkalemia has resolved with a potassium of 4.2. Chloride and carbon dioxide are normal. Anion gap is low at 4. BUN 24. Yesterday she was 28. Creatinine is 0.9. Glucose is 167. Before lunch is 185. Calcium 9.7. CBC shows a white cell count of 7.1. Hemoglobin to 10.1. Platelet 355 Assessment/plan 1. Atrial fibrillation with RVR. After many days of rapid heart rate that was not responding to our rate lowering drugs, and a toxic dig level of 4.1, the medications finally kicked in! She was slowed to 50 by the morning of the , with continued afib. Then converted to Sinus. I transitioned her to MedSurg status since 09/07. Rate stayed controlled in the 70s. She was dig toxic on November 04 with a level of 4.1. She has not received any digoxin since that day. I checked reduced level 09/09 to monitor for toxicity and she is 0.9. I continued her amiodarone 200 mg daily, metoprolol 100 mg p.o. twice daily. She is also on a DOAC for anticoagulation. On the night of 09/09 she went back into A-fib with RVR. This put her into pulmon freddy edema again. I reached out to cardiology at [facility] 09/10. I spoke to [facility] [place] cardiology and Dr. Montgomery was on-call. He really feels that there is nothing more he can offer. He just encourages me to increase her metoprolol. He gave me an example that he had a patient on the floor at [facility] at this moment of time that was metoprolol 100 mg p.o. 4 times daily as we spoke. He said do not be afraid to keep on pushing her rate lowering drugs. Even if she had a reduced ejection fraction, that I could use the Cardizem if it worked. To reload her on her digoxin. As such I have kept her on telemetry. I increased her metoprolol to 150 mg p.o. twice daily. I resumed her dig and reloaded her with 0.125 mg IV push x 3 recheck levels in today. . She was not stable for transfer to a senior care today. Back to acute care status. Today I had to give her Lopressor 5 mg IV push, Cardizem 10 mg IV push. I will have momentary success with getting her into the 80s but then she bounces back up into the 130s. Her heart failure is worse with this. Plan: Increase metoprolol to 200 mg p.o. twice daily. Continue the Cardizem 10 mg IV push alternated with Lopressor 5 mg IV push. Recheck dig level today for toxicity and then continue regular dose dig. Son was at the bedside. I updated him on my plan, my thought process. The patient says that she is just miserable and wishes this would all stop. 2. Acute on chronic systolic heart failure with reduced ejection fraction. Echocardiogram done September 05 shows overall left ventricular systolic function is mild to moderately impaired with an ejection fraction of 45%. Mild global hypokinesis of LV contractility which could be from the prolonged afib. I did point this out to the Station [employer]. Right ventricle size is normal. Right ventricle systolic function normal. No concerning valvular heart disease. Left atrium has moderate to severe increase in left atrial volume index. Moderate to severe right atrial enlargement. At home she is on amlodipine for high blood pressure, hydralazine twice daily for blood pressure (it is listed even though the dc med list from last admit says it was stopped), lisinopril 40 mg daily, metoprolol 100 mg p.o. twice daily and Januvia. For CHF, she is only on a beta-beti while here. The Januvia is a DPP 4 inhibitor but not an SGLT2. I had anticipated calling cardiology yesterday, however now that she is in sinus rhythm, I will not call. I started lasix 20 mg po the morning of the , but still so fluid overloaded by breath sounds, that I gave a one time IV lasix dose. Minimal urine output with that. Her fluid balance was +2858 on the fourth. +2386 on the fifth. +685 on the . I gave an extra dose of lasix IVP and -1085 on 09/09. On 09/10 she was -540. Today -480 so far. Her BUN and creatinine have not gone up with my diuresis yet. I changed her lasix to 20 mg IVP bid on 09/10 and I am continuing that. All IV fluids have been stopped as of 09/10 since I switched her to oral antibiotics. No more maintenance IV fluids. No amiodarone drip. I cautioned her not to drink more than 1500 cc a day. In general, Treatment for congestive heart failure include core measure drugs that are now spironolactone, Lasix, Entresto, and SGLT2 inhibitor. Our formulary does not have the last 2 drugs. I would only be able to give her spironolactone and Lasix. I will resume her home lisinopril. I am not resuming the hydralazine or the amlodipine. 09/08 weight 104, 09/10 weight 101.5 and today 99 kg . BNP 09/10 1036, 09/11 1205 In spite of my successful management of her weight and diuresis, the atrial fibrillation with her heart failure is not improving. 3. Pneumonia in an elderly patient with congestive heart failure from reduced ejection fraction and A-fib that is uncontrolled. Blood cultures are negative. White cell count is normal. She completed 3 days of IV antibiotic therapy 09/07. I switched her over to Augmentin 09/08/24. She is to get a total of 5 days of antibiotic therapy and completed that on the according to pharmacy that day. Procalcitonin levels say that she is safe to transition to orals and complete therapy. Septococcus pneumonia antigen was negative in the urine. Legionella was negative. She has generalized weakness due to the ICU stay for a A-fib. It is a huge effort for her to get out of bed and do simple activity. She physical therapy has evaluated her and recommends SNF rehab therapy and she agrees to that. She was choiced by social work today (not yesterday as I had requested) and the patient would like to go to [facility]. So the notices have been sent out. We are now await authorization from insurance company and acceptance from the nursing homes. [facility] has declined her. She is not currently being evaluated by [facility]. However she cannot be discharged to the senior care until it controlled her heart rate. 4. Trichomonas started on po flagyl on admission once it was verfied that she did not receive treatment for that. As I think about her, there is nothing to suggest that she has other STDs. There is no vaginal ulcers. No vaginal discharge. urine GC and chlamydia Has been ordered but is still pending. Her RPR is negative. Since it wasn't back today I spoke to Stuart in the lab. He said the urine was a send out and it will be 3-4 days AFTER the collection 09/09. Tomorrow will be 7 days of Flagyl. Will be discontinuing it tomorrow. 5. Lymphadenopathy. CT done for evaluation of pneumonia shows suspected lymphoma with enlarged supraclavicular fossa lymph nodes, mediastinal lymphadenopathy, and large intrapulmonary lymph nodes. The left supraclavicular fossa node would be amenable to ultrasound-guided biopsy for confirmation. I will make sure that this is emphasized in her dc summary for followup with her PCP OCTAVIO Jane. 6. Rheumatoid Arthritis If possible, I am asking her to bring in her own medications which includes the methotrexate and the monoclonal antibody injectable and give them to her as appropriate. However, after speaking to pharmacy, she theoreticaly has an infection we are treating and those meds are contraindicated so I had to cancel the orders. In the meantime, I will use nonsteroidals in the form of Toradol 15 mg IV push Q6 as needed for total of 5 doses to help with pain.She says this is helping.I am trying to avoid opioids. The Kevzara would also be prohibitively expensive in the senior care. So I will not be giving it to her in the senior care. It is a 200 mg subcutaneous dose every 14 days. 7. Type 2 diabetes mellitus. With complication of proteinuria. Without long- term use of insulin. Controlled. At home she is on metformin and Januvia. I have not resumed those here. Her A1c was 5.8% on September 06. Her glucose has been only mildly elevated here. Occasionally she is 189, 202. But for the most part she is in the 140s, 160s. 150s. She is on sliding scale. She has been getting anywhere between 1 to 3 units with each meal depending on her glucose before eating. No change at this time. When she goes to the assisted facility, I will not be resuming her Januvia either since it is also prohibitively expensive in that setting. She will go on sliding scale insulin.
--- NOTE | 2024-09-11 20:59 | PROVIDER PROGRESS NOTE ---
Progress Note Progress Note Progress Note: Patient with onset of tachycardia, atrial fibrillation with RVR. She has done this previously and went into flash pulmonary edema. This morning she had this Rate control problem and rate was controlled with 10 mg IV push diltiazem. She is also getting metoprolol orally and 5 mg IV every 6 hours. She has been getting digoxin and she has also been getting amiodarone. She has had dig toxicity and was reloaded on dig this morning. I have sent repeat dig level this evening as part of stat labs. Dr. Olivo discussed this patient with mangle catcher at outside hospital earlier today and transfer was declined. In any event she is very tachycardic and has been resistant to treatment at this point for about an hour. She has been given metoprolol 5 mg twice and diltiazem 10 mg once. Her heart rate remained steady at 140 her blood pressure is hypertensive. Due to concern for pulmonary edema and uncontrolled heart rate with atrial fibrillation, I am transferring this patient to the intensive care unit for excellent nursing care. I am starting her on a diltiazem drip for heart rate control.
[2024-09-11] MEDS: diltiaZEM INJ 125 MG in DEXTROSE 5% 100 ML IV SCH (21:33)
[2024-09-11] MEDS: FUROSEMIDE 20 MG/2 ML VIAL IVP ONE (21:53)
--- NOTE | 2024-09-12 00:05 | PROVIDER PROGRESS NOTE ---
Hospitalist Cross-cover Note Cross-Cover Note Cross-Cover Note: Trop 23.7, chart reviewed, patient transferred to ICU [facility] for management of A fib with RVR. EKG reviewed (obtained while patient was in RVR with HR 136 bpm). Currently HR controlled 94, BP 141/92, O2 sats 98% on 4 L NC. On diltiazem drip. Suspect troponin elevation related to demand ischemia in setting of rapid ventricular rate. Patient is currently antcoagulated with Eliquis. Trend troponin, repeat ordered. Discussed with RN.
--- NOTE | 2024-09-12 00:58 | XRAY Report ---
PROCEDURE: XR Chest 1V INDICATIONS: dyspnea TECHNIQUE: One view of the chest was acquired. COMPARISON: 09/09/2024 FINDINGS: Surgical changes and devices: A right central line with tip projecting over the proximal SVC. Lungs and pleura: Completely opacified left hemithorax. This is new from prior. Mediastinum: No significant mediastinal shift Bones and chest wall: Degenerative changes IMPRESSION: New complete opacification of the left hemithorax, representing complete atelectasis (for example due to mucous plug), differential includes large effusion. There is no significant mediastinal shift. If further imaging clarification is needed, consider CT. Reviewed by: Roscoe Ibanez MD on 09/12/2024 12:57 AM [facility] Approved by: Roscoe Ibanez MD on 09/12/2024 12:57 AM [facility] Station ID: [id number]
[2024-09-12 01:44] LABS: ABG OXYGEN SATURATION 99 % (95-98); ABG PCO2 42 mmHg (34-45); ABG PH 7.41 (7.35-7.45); ABG PO2 104 mmHg (83-108)
[2024-09-12 01:45] LABS: ABG BASE EXCESS 1.9 mmol/L (-2.0-3.0); ABG RESPIRATORY RATE 12 b/min; ALLEN TEST POSITIVE
[2024-09-12] MEDS: FUROSEMIDE 40 MG/4 ML VIAL IVP ONE (02:57)
[2024-09-12 06:21] LABS: BASOPHILS % (AUTO) 0.1 %; EOSINOPHILS % (AUTO) 0.5 %; HCT - HEMATOCRIT 32.7 % (37.0-47.0); HGB - HEMOGLOBIN 10.4 g/dL (12.0-16.0); LYMPHOCYTES # (AUTO) 0.5 10^3/uL (1.5-3.5); LYMPHOCYTES % (AUTO) 6.2 %; MEAN CORPUSCULAR HEMOGLOBIN 34.1 pg (27.0-31.0); MEAN CORPUSCULAR HGB CONC 31.8 g/dL (32.0-36.0); MEAN CORPUSCULAR VOLUME 107.2 fL (81.0-99.0); MEAN PLATELET VOLUME 9.4 fL (7.9-10.8); MONOCYTES # (AUTO) 0.8 10^3/uL (0.0-1.0); MONOCYTES % (AUTO) 10.1 %; NEUTROPHILS # (AUTO) 6.9 10^3/uL (1.5-6.6); NEUTROPHILS % (AUTO) 82.5 %; NRBC ABSOLUTE COUNT (AUTO) 0.02 x10^3/uL; NUCLEATED RED BLOOD CELLS AUTO 0.2 /100WBC; PLT - PLATELET COUNT 352 10^3/uL (130-450); RED BLOOD COUNT 3.05 10^6/uL (4.20-5.40); RED CELL DISTRIBUTION WIDTH 14.6 % (12.0-15.0); WHITE BLOOD COUNT 8.3 x10^3/uL (4.8-10.8)
[2024-09-12] MEDS: FUROSEMIDE 20 MG/2 ML VIAL IVP SCH (06:26)
[2024-09-12 06:42] LABS: CREATININE 0.9 mg/dL (0.6-1.3); POTASSIUM 3.9 mmol/L (3.5-4.5)
[2024-09-12] MEDS: METOPROLOL TARTRATE 50 MG TABLET PO STA (08:46)
[2024-09-12] MEDS: METOPROLOL SUCCINATE 50 MG TABLET PO SCH (08:48)
[2024-09-12] MEDS ORDERED: FUROSEMIDE 40 MG/4 ML VIAL IVP SCH (09:00)
[2024-09-12] MEDS ORDERED: ATROPINE ABBOJECT 1 MG/10 ML SYRINGE IVP ONE (12:08)
[2024-09-12] MEDS: CEFEPIME 2 GM in SODIUM CHLORIDE 0.9% MINIBAG 100 ML IV SCH (15:23)
[2024-09-12] MEDS: diltiaZEM INJ 5 MG/ML VIAL IVP ONE ×2 (15:24→19:28)
[2024-09-12] MEDS ORDERED: SUGAMMADEX 200 MG/2 ML VIAL IVP ONE (15:35)
[2024-09-12] MEDS ORDERED: PROPOFOL 500 MG/50 ML 500 MG/50 ML VIAL ONE (15:35)
[2024-09-12] MEDS ORDERED: ROCURONIUM 50 MG/5 ML VIAL ONE (15:35)
[2024-09-12] MEDS ORDERED: SODIUM CHLORIDE 0.9% 1,000 ML ONE (15:52)
--- NOTE | 2024-09-12 15:55 | CONSULTATION NOTE ---
Referring Provider Name of Referring Provider:: Bienvenido (Geovani) Consult Date: 09/12/24 Chief Complaint Chief Complaint Chief Complaint: I cannot breathe History of Present Illness History Obtained From Records Reviewed: yes History obtained from: patient, primary team Exam Limitations: patient in respiratory distress, unable to say more than one word at a time History of Present Illness HPI Comment/Other: 68 y/o F admitted with A fib, RVR, CHF exacerbation who had converted to NSR. Today, patient again in A fib and not responsive to medications. Repeat CXR today demonstrates white out of left lung, suspected mucous plugging. For this, surgery is emergently consulted. Patient awake and able to listen to explanation but only able to say one to two words and feels she is having a lot of trouble breathing. All Active Problems (Updated 09/10/24 @ 10:13 by Lorie Olivo MD) LLL pneumonia (Acute) Afib (Acute) Trichomonas infection (Acute) Hypomagnesemia (Acute) Atrial fibrillation with RVR (Acute) SOB (shortness of breath) on exertion (Acute) Rheumatoid arthritis (Acute) CVA (cerebral vascular accident) (Acute) Hypertension (Acute) Hyperlipidemia (Acute) Diabetes mellitus type 2, controlled (Acute) Bronchitis (Acute) Chest pain (Acute) PFSH Medical History Medical History (Updated 09/12/24 @ 16:34 by Lorie Olivo MD) CAD (coronary artery disease) 4 stents 1999 Hodgkins lymphoma 2014 Bleeding hemorrhoids Surgical History Surgical History H/O hysterectomy for benign disease Social History Social History Smoking Status: Former smoker If you are a former smoker, when did you quit? (Date/Year): 3 wks ago Number of Years Smoked: 40 How many cigarettes a day do you smoke? (20 cigarettes=1 Pk): 5 Do you dip or chew tobacco?: No Do you vape?: No Patient requests smoking cessation consult: No Initiate information on smoking cessation: No Living arrangement: Assisted living Marital Status: Support Person: Yes Relationship: Child Physical Activity: Walking Level: Assisted Home Mobility Equipment: Wheeled walker Do you feel safe in your home environment?: Yes Suffered physical, verbal, emotional, or financial abuse?: No ETOH Use: None Substance Use: cannabis (any form) Substance Use Details: [place] Are you sexually active?: No Retired: Yes Service: No Are you following a diet prescribed by a doctor: No Are you following a special diet: No POLST Patient has POLST: Yes POLST Status: DNR (Patient reports during office visit) Meds/Allgy Home Medications Ambulatory Orders Medication Instructions Recorded Confirmed amlodipine 10 mg tablet 10 mg PO DAILY 08/19/24 09/04/24 atorvastatin 20 mg tablet 20 mg PO QPM 08/19/24 09/04/24 gabapentin 300 mg capsule 300 mg PO TID 08/19/24 09/05/24 hydralazine 25 mg tablet 25 mg PO BID 08/19/24 09/04/24 lisinopril 40 mg tablet 40 mg PO DAILY 08/19/24 09/04/24 metformin 1,000 mg tablet 1,000 mg PO BIDWM 08/19/24 09/04/24 methotrexate sodium 2.5 mg tablet 15 mg PO WE 08/19/24 09/04/24 metoprolol tartrate 100 mg tablet 100 mg PO BID 08/19/24 09/04/24 pantoprazole 40 mg tablet,delayed 40 mg PO DAILY 08/19/24 09/04/24 release rivaroxaban 10 mg tablet (Xarelto) 10 mg PO DAILY 08/19/24 09/04/24 sarilumab 200 mg/1.14 mL 200 mg subcut Q14D 08/19/24 09/04/24 subcutaneous syringe (Kevzara) sitagliptin phosphate 100 mg 100 mg PO DAILY 08/19/24 09/04/24 tablet (Januvia) ferrous sulfate 325 mg (65 mg 325 mg PO DAILY 08/20/24 09/02/24 iron) tablet (FeroSul) loratadine 10 mg tablet 10 mg PO DAILY 08/20/24 09/04/24 (Allerclear) magnesium oxide 400 mg PO DAILY #30 caps 08/20/24 09/04/24 omega 5-azv-iif-fish oil 100 2 cap PO DAILY 08/20/24 09/02/24 mg-160 mg-1,000 mg capsule (Fish Oil) vitamin B complex (Balanced B-50 1 tab PO DAILY 01/18/25 01/31/25 tablet) albuterol sulfate 90 mcg/actuation 1 puff inhalation QID PRN 08/30/24 09/04/24 aerosol inhaler (Ventolin HFA) shortness of breath or wheezing #6.7 grams doxycycline hyclate 100 mg capsule 100 mg PO BID #14 caps 08/30/24 09/04/24 Allergies Allergies Allergy/AdvReac Type Severity Reaction Status Date / Time tramadol Allergy Severe Unknown Verified 09/02/24 10:20 Results Lab Results 09/12/24 06:00 09/12/24 06:00 Other Lab Results: Lab Results x24hrs 09/12/24 09/12/24 09/12/24 Range/Units 11:53 08:52 07:57 WBC (4.8-10.8) x10^3/uL RBC (4.20-5.40) 10^6/uL Hgb (12.0-16.0) g/dL Hct (37.0-47.0) % MCV (81.0-99.0) fL MCH (27.0-31.0) pg MCHC (32.0-36.0) g/dL RDW (12.0-15.0) % Plt Count (130-450) 10^3/uL MPV (7.9-10.8) fL Neut # (Auto) (1.5-6.6) 10^3/uL Lymph # (Auto) (1.5-3.5) 10^3/uL [place] # (Auto) (0.0-1.0) 10^3/uL Eos # (Auto) (0.0-0.7) 10^3/uL Baso # (Auto) (0.0-0.1) 10^3/uL Absolute Nucleated RBC x10^3/uL Nucleated RBC % /100WBC Bld Gas Analysis Time Sample Site ABG pH (7.35-7.45) ABG pCO2 (34-45) mmHg ABG pO2 (83-108) mmHg ABG HCO3 (22.0-26.0) mmol/L ABG Total CO2 (21.0-29.0) mmol/L ABG O2 Saturation (95-98) % ABG Base Excess (-2.0-3.0) mmol/L Kirk Test Respiration Rate b/min O2 Delivery Device FiO2 EPAP cmH2O IPAP cmH2O Sodium (135-145) mmol/L Potassium (3.5-4.5) mmol/L Chloride (101-111) mmol/L Carbon Dioxide (21-32) mmol/L Anion Gap (6-13) BUN (6-20) mg/dL Creatinine (0.6-1.3) mg/dL Estimated GFR (MDRD) (>89) Glucose (74-104) mg/dL POC Whole Bld Glucose 157 200 (70-100) mg/dL Calcium (8.5-10.3) mg/dL Troponin I High Sens (2.3-14.8) ng/L B-Natriuretic Peptide 1333 H (5-100) pg/mL Nasal Screen MRSA (PCR) (NEGATIVE) Last Dose Date Last Dose Time Digoxin ng/mL 09/12/24 09/12/24 09/11/24 Range/Units 06:00 01:30 22:15 WBC 8.3 (4.8-10.8) x10^3/uL RBC 3.05 L (4.20-5.40) 10^6/uL Hgb 10.4 L (12.0-16.0) g/dL Hct 32.7 L (37.0-47.0) % MCV 107.2 H (81.0-99.0) fL MCH 34.1 H (27.0-31.0) pg MCHC 31.8 L (32.0-36.0) g/dL RDW 14.6 (12.0-15.0) % Plt Count 352 (130-450) 10^3/uL MPV 9.4 (7.9-10.8) fL Neut # (Auto) 6.9 H (1.5-6.6) 10^3/uL Lymph # (Auto) 0.5 L (1.5-3.5) 10^3/uL [place] # (Auto) 0.8 (0.0-1.0) 10^3/uL Eos # (Auto) 0.0 (0.0-0.7) 10^3/uL Baso # (Auto) 0.0 (0.0-0.1) 10^3/uL Absolute Nucleated RBC 0.02 x10^3/uL Nucleated RBC % 0.2 /100WBC Bld Gas Analysis Time 0138 Sample Site LEFT RADIAL ABG pH 7.41 (7.35-7.45) ABG pCO2 42 (34-45) mmHg ABG pO2 104 (83-108) mmHg ABG HCO3 26.7 H (22.0-26.0) mmol/L ABG Total CO2 28.0 (21.0-29.0) mmol/L ABG O2 Saturation 99 H (95-98) % ABG Base Excess 1.9 (-2.0-3.0) mmol/L Kirk Test POSITIVE Respiration Rate 12 b/min O2 Delivery Device BiPAP FiO2 60.00 EPAP 5 cmH2O IPAP 14 cmH2O Sodium 137 (135-145) mmol/L Potassium 3.9 (3.5-4.5) mmol/L Chloride 104 (101-111) mmol/L Carbon Dioxide 28 (21-32) mmol/L Anion Gap 5.0 L (6-13) BUN 23 H (6-20) mg/dL Creatinine 0.9 (0.6-1.3) mg/dL Estimated GFR (MDRD) 75 L (>89) Glucose 224 H (74-104) mg/dL POC Whole Bld Glucose (70-100) mg/dL Calcium 10.0 (8.5-10.3) mg/dL Troponin I High Sens 22.0 H* (2.3-14.8) ng/L B-Natriuretic Peptide (5-100) pg/mL Nasal Screen MRSA (PCR) NEGATIVE (NEGATIVE) Last Dose Date Last Dose Time Digoxin ng/mL 09/11/24 09/11/24 09/11/24 Range/Units 22:10 20:43 20:25 WBC (4.8-10.8) x10^3/uL RBC (4.20-5.40) 10^6/uL Hgb (12.0-16.0) g/dL Hct (37.0-47.0) % MCV (81.0-99.0) fL MCH (27.0-31.0) pg MCHC (32.0-36.0) g/dL RDW (12.0-15.0) % Plt Count (130-450) 10^3/uL MPV (7.9-10.8) fL Neut # (Auto) (1.5-6.6) 10^3/uL Lymph # (Auto) (1.5-3.5) 10^3/uL [place] # (Auto) (0.0-1.0) 10^3/uL Eos # (Auto) (0.0-0.7) 10^3/uL Baso # (Auto) (0.0-0.1) 10^3/uL Absolute Nucleated RBC x10^3/uL Nucleated RBC % /100WBC Bld Gas Analysis Time Sample Site ABG pH (7.35-7.45) ABG pCO2 (34-45) mmHg ABG pO2 (83-108) mmHg ABG HCO3 (22.0-26.0) mmol/L ABG Total CO2 (21.0-29.0) mmol/L ABG O2 Saturation (95-98) % ABG Base Excess (-2.0-3.0) mmol/L Kirk Test Respiration Rate b/min O2 Delivery Device FiO2 EPAP cmH2O IPAP cmH2O Sodium (135-145) mmol/L Potassium (3.5-4.5) mmol/L Chloride (101-111) mmol/L Carbon Dioxide (21-32) mmol/L Anion Gap (6-13) BUN (6-20) mg/dL Creatinine (0.6-1.3) mg/dL Estimated GFR (MDRD) (>89) Glucose (74-104) mg/dL POC Whole Bld Glucose 166 (70-100) mg/dL Calcium (8.5-10.3) mg/dL Troponin I High Sens 23.7 H* (2.3-14.8) ng/L B-Natriuretic Peptide 1636 H (5-100) pg/mL Nasal Screen MRSA (PCR) (NEGATIVE) Last Dose Date 09/11/24 Last Dose Time 10:07 Digoxin 1.0 ng/mL 09/11/24 Range/Units 16:29 WBC (4.8-10.8) x10^3/uL RBC (4.20-5.40) 10^6/uL Hgb (12.0-16.0) g/dL Hct (37.0-47.0) % MCV (81.0-99.0) fL MCH (27.0-31.0) pg MCHC (32.0-36.0) g/dL RDW (12.0-15.0) % Plt Count (130-450) 10^3/uL MPV (7.9-10.8) fL Neut # (Auto) (1.5-6.6) 10^3/uL Lymph # (Auto) (1.5-3.5) 10^3/uL [place] # (Auto) (0.0-1.0) 10^3/uL Eos # (Auto) (0.0-0.7) 10^3/uL Baso # (Auto) (0.0-0.1) 10^3/uL Absolute Nucleated RBC x10^3/uL Nucleated RBC % /100WBC Bld Gas Analysis Time Sample Site ABG pH (7.35-7.45) ABG pCO2 (34-45) mmHg ABG pO2 (83-108) mmHg ABG HCO3 (22.0-26.0) mmol/L ABG Total CO2 (21.0-29.0) mmol/L ABG O2 Saturation (95-98) % ABG Base Excess (-2.0-3.0) mmol/L Kirk Test Respiration Rate b/min O2 Delivery Device FiO2 EPAP cmH2O IPAP cmH2O Sodium (135-145) mmol/L Potassium (3.5-4.5) mmol/L Chloride (101-111) mmol/L Carbon Dioxide (21-32) mmol/L Anion Gap (6-13) BUN (6-20) mg/dL Creatinine (0.6-1.3) mg/dL Estimated GFR (MDRD) (>89) Glucose (74-104) mg/dL POC Whole Bld Glucose 186 (70-100) mg/dL Calcium (8.5-10.3) mg/dL Troponin I High Sens (2.3-14.8) ng/L B-Natriuretic Peptide (5-100) pg/mL Nasal Screen MRSA (PCR) (NEGATIVE) Last Dose Date Last Dose Time Digoxin ng/mL CXR this afternoon demonstrates white out of left lung on my interpretation of the images. Conclusion and Plan Consultation Note Consultation Note: 68 y/o F in respiratory distress with complete white out of left lung. - plan for emergent bronchoscopy of B lungs - Anesthesia and RT present to intubate patient prior to procedure. Post procedure update: Patient with significant edema L>R. Moderate secretions, s/p therapeutic bronchoscopy with flushes, suction used to remove as much of the secretions as possible. Recommend patient remain intubated overnight. Post procedure CXR pending. General surgery will continue to follow. Review of Systems Status of ROS: 10 or more systems reviewed and unremarkable except as noted in history and below Exam Exam GEN: Paitent in respiratory distress, appears stated age, alert HEENT: NCAT, dry mucous membranes, EOMI NEURO: CN II-XII grossly intact, no obvious focal deficits CV: tachycardic with irregularly irregular rhythm PULM: coarse breath sounds throughout on right and minimal breath sounds on left. ABD: soft, obese, non tender, no rebound or guarding CIRCULATORY: no clubbing, cyanosis (difficult to assess due to skin tone), no significant edema SKIN: no lesions appreciated LYMPH: no obvious lymphadenopathy MSK: 4/4 strength in all extremities PSYCH: Affect is appropriate
--- NOTE | 2024-09-12 16:47 | PROVIDER PROGRESS NOTE ---
Progress Note Progress Note Progress Note: September 12, 2024 4:45 PM It has been an eventful day for this unfortunate female. Last night her A-fib with RVR continued in spite of diltiazem and Lopressor. The nighttime provider transitioned her back to the ICU and started a dilt drip. I gave her IV push digoxin this am since she was still too fast. I increased her metoprolol from 150 twice daily to 200 twice daily. It started to control her rate. When she dropped into the 80s and 70s, she then had a pulse of 30 with a long pause. I immediately stopped the diltiazem drip. The pause resolved and she went into sinus rhythm. Her lung exam was terrible. Gurgling wet rhonchi, and she sounded like a mary ight engine. She then went back into a sudden A-fib. This entire time this patient is getting more more tired from the CHF and respiratory failure due to the A-fib with RVR. I repeated a chest x-ray and she has a white out of her left lung. Suspicion of a mucous plug. I then spoke to general surgery and consulted them. Anesthesia. Our solution was to intubate this patient coming in using a flexible bronchoscope suction any mucus that was in the left mainstem bronchus. we obtained permission from her son and from the patient. We explained that we may keep her intubated to respiratory. She is exhausted. She was found to have significant edema of the bronchial tree. But no lesion. She will remain intubated in the ICU. Was exhausted before intubation. Barely able to keep her breathing rate up. I have ordered an OG tube. I have tried to change some of her p.o. medicines to IV. Hopefully the rest of the p.o. medicines can go down the OG. Exam: Short morbidly obese female with 98.5 kg weight. She went into SVT with the bronchoscope and is now sinus rhythm. Blood pressure is 151/91 pulse is 126, respirations 19. Temp is 37.2. She is 90% on the vent. Coarse upper airway sounds. Gurgling continue. I am starting tidal volume of 450, rate of 16, assist-control, FiO2 100% and I will adjust the vent down as I get her blood gases. Regular rate and rhythm. She is 88. No longer tachycardic. I suspect that we also may have vagal down with the intubation. Abdomen is obese, soft, nontender with normal bowel sounds. Trace edema of her legs. I reviewed her labs: Sodium, potassium, chloride and carbon dioxide were normal. Anion gap 5. BUN 23, creatinine 0.9. Glucose 200 before breakfast. 157 before lunch. And she is 151 before the dinner hour. Although she did not go to be able to eat now that of got her intubated. White blood count is 8.3. Hemoglobin 10.4. Platelets 352. Assessment/plan 1. Acute respiratory failure with hypoxia. due to afib w RVR induced CHF. She then had complete white out of her L lung today that we are attibuting to mucous plug. Anesthesia intubated after obtaining consent from the patient and then surgery did the flexible bronch. Mucous was dislodged but significant bronchial edema was noted. Post procedure CXR shows minimal improvment. I have started empiric therapy for possible hospital-acquired pneumonia. Cefepime. MRSA swab of the nose was negative so will not be doing vancomycin. And I am also calling [facility] again. I am asking for higher level of care, ICU bed. 1. Atrial fibrillation with RVR. After many days of rapid heart rate that was not responding to our rate lowering drugs, and a toxic dig level of 4.1, the medications finally kicked in! She was slowed to 50 by the morning of the , with continued afib. Then converted to Sinus. I transitioned her to MedSurg status since 09/07. Rate stayed controlled in the 70s. She was dig toxic on November 04 with a level of 4.1. She has not received any digoxin since that day. I checked reduced level 09/09 to monitor for toxicity and she is 0.9. I continued her amiodarone 200 mg daily, metoprolol 100 mg p.o. twice daily. She is also on a DOAC for anticoagulation. On the night of 09/09 she went back into A-fib with RVR. This put her into pulmonary edema again. I reached out to cardiology at [facility] 09/10. I spoke to [facility] cardiology and Dr. Montgomery was on-call. He really feels that there is nothing more he can offer. He just encourages me to increase her metoprolol. He gave me an example that he had a patient on the floor at [facility] at this moment of time that was metoprolol 100 mg p.o. 4 times daily as we spoke. He said do not be afraid to keep on pushing her rate lowering drugs. Even if she had a reduced ejection fraction, that I could use the Cardizem if it worked. To reload her on her digoxin. As such I have kept her on telemetry. I increased her metoprolol to 150 mg p.o. twice daily. I resumed her dig and reloaded her with 0.125 mg IV push x 3 recheck levels in today. . She was not stable for transfer to a fci today. On the , I had to give her Lopressor 5 mg IV push, Cardizem 10 mg IV push. Increase your metoprolol to 200 mg p.o. twice daily. I would have momentary success with getting her into the 80s but then she bounces back up into the 130s. Her heart failure was worse with this. With the rapid heart rate and worsening respiratory status she was transferred to ICU. Today the events occurred as described above. Severe A-fib with RVR, severe shortness of breath. Momentarily responsive to the Cardizem drip but then had severe shortness of breath and I checked a chest x-ray which showed whiteout of the left lung. She is now status post a bedside flexible bronchoscopy. Removal of a mucous plug. Copious clear secretions from the ET tube. After the bronchoscopy her rate has come down to the 80s and 90s. So rate is controlled, now intubated, and I will focus on CHF if I cannot get her to higher level of care. And is at the bedside. I have updated him. Is amenable to her being transferred to [facility] if I can get a bed. 2. Acute on chronic systolic heart failure with reduced ejection fraction. Echocardiogram done September 05 shows overall left ventricular systolic function is mild to moderately impaired with an ejection fraction of 45%. Mild global hypokinesis of LV contractility which could be from the prolonged afib. I did point this out to the Car Body Mechanic. Right ventricle size is normal. Right ventricle systolic function normal. No concerning valvular heart disease. Left atrium has moderate to severe increase in left atrial volume index. Moderate to severe right atrial enlargement. At home she is on amlodipine for high blood pressure, hydralazine twice daily for blood pressure (it is listed even though the dc med list from last admit says it was stopped), lisinopril 40 mg daily, metoprolol 100 mg p.o. twice daily and Januvia. For CHF, she is only on a beta-beti while here. The Januvia is a DPP 4 inh ibitor but not an SGLT2. I started lasix 20 mg po the morning of the , but still so fluid overloaded by breath sounds, that I gave a one time IV lasix dose. Minimal urine output with that. Her fluid balance was +2858 on the fourth. +2386 on the . +685 on the . I gave an extra dose of lasix IVP and -1085 on 09/09. On 09/10 she was -540. -973 on the and -2078 for today so far. Her BUN and creatinine have not gone up with my diuresis yet. I changed her lasix to 20 mg IVP bid on 09/10 and I am continuing that. All IV fluids have been stopped as of 09/10 since I switched her to oral antibiotics. No more maintenance IV fluids. No amiodarone drip. I cautioned her not to drink more than 1500 cc a day. In general, Treatment for congestive heart failure include core measure drugs that are now spironolactone, Lasix, Entresto, and SGLT2 inhibitor. Our formulary does not have the last 2 drugs. I would only be able to give her spironolactone and Lasix. I will resume her home lisinopril. I am not resuming the hydralazine or the amlodipine. 09/08 weight 104, 09/10 weight 101.5 09/11 weight 99 kg . Today she is 98.5 kg. BNP 09/10 1036, 09/11 1636, today 1333. In spite of my successful management of her weight and diuresis, the atrial fibrillation with her heart failure is not improving. I am asking for acceptance at [facility] for higher level of care. 3. Pneumonia in an elderly patient with congestive heart failure from reduced ejection fraction and A-fib that is uncontrolled. Blood cultures are negative. White cell count is normal. She completed 3 days of IV antibiotic therapy 2/5. I switched her over to Augmentin 09/08/24. She is to get a total of 5 days of antibiotic therapy and completed that on the 7th according to pharmacy that day. Procalcitonin levels say that she is safe to transition to orals and complete therapy. Septococcus pneumonia antigen was negative in the urine. Legionella was negative. She has generalized weakness due to the ICU stay for a A-fib. It is a huge effort for her to get out of bed and do simple activity. She physical therapy has evaluated her and recommends SNF rehab therapy and she agrees to that. She was choiced by social work and the patient would like to go to [facility]. So the notices have been sent out. We are now await authorization from insurance company and acceptance from the nursing homes. [facility] has declined her. She is currently being evaluated by [facility]. However she cannot be discharged to the fci until I can controlled her heart rate. 4. Trichomonas started on po flagyl on admission once it was verfied that she did not receive treatment for that. As I think about her, there is nothing to suggest that she has other STDs. There is no vaginal ulcers. No vaginal discharge. urine GC and chlamydia Has been ordered but is still pending. Her RPR is negative. Since it wasn't back today I spoke to Stuart in the lab. He said the urine was a send out and it will be 3-4 days AFTER the collection 09/09. Tomorrow will be 7 days of Flagyl. She received her last dose tonight via OG? 5. Lymphadenopathy. CT done for evaluation of pneumonia shows suspected lymphoma with enlarged supraclavicular fossa lymph nodes, mediastinal lymphadenopathy, and large intrapulmonary lymph nodes. The left supraclavicular fossa node would be amenable to ultrasound-guided biopsy for confirmation. She has a hx of lymphoma already tht was treated in [place]. I will make sure that this is emphasized in her dc summary for followup with her PCP OCTAVIO Jane. 6. Rheumatoid Arthritis If possible, I am asking her to bring in her own medications which includes the methotrexate and the monoclonal antibody injectable and give them to her as appropriate. However, after speaking to pharmacy, she theoreticaly has an infection we are treating and those meds are contraindicated so I had to cancel the orders. In the meantime, I used use nonsteroidals in the form of Toradol 15 mg IV push Q6 as needed for total of 5 doses to help with pain.She said that helped.I am trying to avoid opioids. The Kevzara would also be prohibitively expensive in the fci. So I will not be giving it to her in the fci. It is a 200 mg subcutaneous dose every 14 days. 7. Type 2 diabetes mellitus. With complication of proteinuria. Without long- term use of insulin. Controlled. At home she is on metformin and Januvia. I have not resumed those here. Her A1c was 5.8% on September 06. Her glucose has been only mildly elevated here. Occasionally she is 189, 202. But for the most part she is in the 140s, 160s. 150s. She is on sliding scale. She has been getting anywhere between 1 to 3 units with each meal depending on her glucose before eating. No change at this time. [facility], I will not be resuming her Januvia either since it is also prohibitively expensive in that setting. She will go on sliding scale insulin. Current Medications Current Medications Current Medications: Current Medications Generic Name Dose Route Start Last Admin Trade Name Freq PRN Reason Stop Dose Admin Acetaminophen 1,000 mg 09/05/24 14:00 09/12/24 14:17 Acetaminophen 500 Mg Tablet PO 1,000 mg TID MARISA Administration Amiodarone HCl 200 mg 09/07/24 09:00 09/12/24 08:07 Amiodarone 200 Mg Tablet PO 200 mg DAILY MARISA Administration Atorvastatin Calcium 20 mg 09/05/24 21:00 09/11/24 21:50 Atorvastatin 10 Mg Tablet PO 20 mg QPM MARISA Administration Diclofenac Sodium 2 gm 09/05/24 13:15 09/09/24 03:31 Diclofenac Sodium 1% Gel 50 Gm Tube TOP 2 gm QID PRN Administration Mild Pain (Level 1-3) Diphenhydramine HCl 25 mg 09/06/24 20:59 09/07/24 23:08 Diphenhydramine Inj 50 Mg/Ml Vial IVP 25 mg Q6H PRN Administration Allergy Symptoms Enoxaparin Sodium 100 mg 09/12/24 21:00 Enoxaparin 100 Mg/Ml Syringe 1 mg/kg (100 mg) SUBQ BID [facility] Ferrous Sulfate 325 mg 09/06/24 09:00 09/12/24 08:07 Ferrous Sulfate 325 Mg Tablet PO 325 mg DAILY MARISA Administration Folic Acid 1 mg 09/08/24 13:45 09/12/24 08:07 Folic Acid 1 Mg Tablet PO 1 mg DAILY MARISA Administration Furosemide 40 mg 09/12/24 06:00 09/12/24 14:17 Furosemide 20 Mg/2 Ml Vial IVP 40 mg BIDDIURETIC MARISA Administration Gabapentin 300 mg 09/04/24 22:31 09/12/24 08:07 Gabapentin 300 Mg Capsule PO 300 mg BID MARISA Administration Guaifenesin 1,200 mg 09/05/24 21:00 09/12/24 08:07 Guaifenesin 600 Mg Tablet PO 1,200 mg BID MARISA Administration Cefepime HCl 2 gm/ Sodium 100 mls @ 200 mls/hr 09/12/24 15:00 09/12/24 15:23 Chloride IV 09/19/24 14:59 200 mls/hr Q8HR MARISA Administration Propofol 1,000 mg in 100 mls @ 5.91 mls/hr 09/12/24 17:00 Diprivan IV .[id number] [facility] Protocol 10 MCG/KG/MIN Insulin Human Lispro 1 - 5 unit 09/05/24 08:00 09/12/24 11:55 Insulin Lispro 300 Unit/3 Ml Pen SUBQ 1 unit 0800,1200,1700,2100 MARISA Administration Protocol Ipratropium Hustle 0.5 mg 09/09/24 10:28 09/10/24 22:46 Ipratropium 0.2 Mg/Ml Neb INH 0.5 mg RTQ4H PRN Administration Wheezing Levalbuterol HCl 1.25 mg 09/09/24 10:33 09/10/24 22:46 Levalbuterol 1.25 Mg/3 Ml Neb INH 1.25 mg RTQ4H PRN Administration Wheezing Lidocaine 1 patch 09/06/24 21:10 09/12/24 08:06 Lidocaine Patch 4% TOP 1 patch DAILY MARISA Administration Lisinopril 40 mg 09/09/24 09:00 09/12/24 08:07 Lisinopril 20 Mg Tablet PO 40 mg DAILY MARISA Administration Magnesium Oxide 400 mg 09/06/24 08:00 09/12/24 08:07 Magnesium Oxide 400 Mg Tablet PO 400 mg DAILYWM MARISA Administration Metoprolol Tartrate 5 mg 09/09/24 17:02 09/12/24 14:40 Metoprolol 5 Mg/5 Ml Vial IVP 5 mg Q6H PRN Administration tachycardia >110 for 5 minutes Metoprolol Tartrate 200 mg 09/12/24 21:00 Metoprolol Tartrate 50 Mg Tablet PO BID MARISA Metronidazole 500 mg 09/05/24 17:00 09/12/24 08:07 Metronidazole 250 Mg Tablet PO 09/12/24 16:59 500 mg BIDWM MARISA Administration Pantoprazole Sodium 40 mg 09/12/24 17:00 Pantoprazole 40 Mg Vial IVP QDAC MARISA Sitagliptin 1 each 09/08/24 09:00 09/12/24 08:08 Phosphate [Januvia] PO Not Given 100 Mg Tablet DAILY MARISA Multivit/Folic Acid/Iron 1 tab 09/08/24 14:00 09/12/24 08:07 Vitamin Tablet PO 1 tab DAILYWM MARISA Administration Sodium Chloride 10 ml 09/05/24 01:00 09/12/24 08:08 Sodium Chloride Flush 0.9% 10 Ml Syringe IVP 10 ml 0100,0900,1700 MARISA Administration Sodium Chloride 10 ml 09/04/24 22:31 09/12/24 06:26 Sodium Chloride Flush 0.9% 10 Ml Syringe IVP 10 ml PRN PRN Administration NEEDED PER PROVIDER ORDERS
[2024-09-12] MEDS ORDERED: PROPOFOL 1000 MG/100 ML 1,000 MG/100 ML BOTTLE IV ONE (16:50)
[2024-09-12] MEDS: PROPOFOL 1000 MG/100 ML 1,000 MG/100 ML BOTTLE IV SCH (16:52)
--- NOTE | 2024-09-12 17:04 | XRAY Report ---
PROCEDURE: XR Chest 1V INDICATIONS: post bronch TECHNIQUE: One view of the chest was acquired. COMPARISON: Same day chest x-ray. FINDINGS: Surgical changes and devices: Endotracheal tube in place, the eagle is not well seen in the endomet rial cavity may be near the location of the eagle. Enteric tube with tip and side-port projecting be low the diaphragm and field of view. Reinsertion of right-sided PICC. Lungs and pleura: Complete opacification of the left chest. Prominent interstitial markings on the r ight with small effusions. Mediastinum: Mediastinal contours appear normal. Heart size is normal. Bones and chest wall: No suspicious bony lesions. Overlying soft tissues appear unremarkable. IMPRESSION: 1.Complete opacification of the left chest is redemonstrated. Prominent interstitial markings and eff usion on the right appears increased compared to prior. 2.Endotracheal tube place. The right is not well seen and the enteric tube is likely near the eagle. Reviewed by: Renato Mireles MD on 09/12/2024 5:03 PM PST Approved by: Renato Mireles MD on 09/12/2024 5:03 PM PST Station ID: [id number]
[2024-09-12] MEDS: PANTOPRAZOLE 40 MG VIAL IVP SCH (17:15)
[2024-09-12] MEDS: AMPICILLIN/SULBACTAM 1.5 GM in SODIUM CHLORIDE 0.9% MINIBAG 100 ML IV SCH (17:54)
--- NOTE | 2024-09-12 17:58 | OPERATIVE REPORT ---
Operative Report General Admit Date: 09/05/24 Procedure Data: Procedure date: 09/12/2024 Procedure: flexible therapeutic bronchoscopy with lavage Surgeon: Dr. Rosalind Nobles Asset Management Analyst: Dr. Micah Gomez Anesthesia: sedation and paralysis by [facility] Pre-Op Diagnosis: mucous plugging L lung Post Op Diagnosis: B pulmonary edema L>R, moderate mucous Procedure Note Pathology: none Indications: Patient was admitted with A-fib with RVR, CHF, and pneumonia. Initially, the patient improved, but over the last 24 hours she has again gone into A-fib and has not been very responsive to medication to control her rate. Repeat chest x- ray this afternoon shows an essential whiteout of the left lung. The patient's respiratory effort has also increased. The primary team is consulting surgery for emergent bronchoscopy after intubation. The procedure was discussed with the patient in detail. We discussed risks including continued worsening, bleeding, benefits including improved aeration of her lungs, and alternatives including continued observation. The patient indicated understanding, her questions were answered, and she wished to proceed with intubation and bronchoscopy. A consent was signed by the patient prior to her procedure. As we were using new equipment, my partner Dr. Obrien his office was present for the duration of the procedure. Findings: 1. Bilateral pulmonary edema, left worse than right 2. Moderate secretions Complications: None Other Other Information/Narrative: The procedure was performed in the patient's ICU room after she was intubated. A preprocedure timeout was performed. Bronchoscopy was performed through the endotracheal tube after the patient had been paralyzed. The proximal and distal trachea appeared normal. The main eagle was noted to be sharp and the edema was present just beyond the eagle and both right and left sides, left much worse than right. Bronchoscope was advanced into the right lung right upper middle and lower lobe bronchi were identified and patent right lower lobe bronchioalveolar lavage was performed for therapeutic reasons only. Right upper lobe bronchioloalveolar lavage was also performed. Attention was turned to the left bronchus which again appeared more edematous than the right. Bronchoalveolar lavage was also performed in this location, again for therapeutic reasons only. A mucous plug was removed from the left side. The patient tolerated the procedure well and her oxygen saturations remained above 90% throughout the procedure. Postprocedure chest x-ray is very mildly improved.
[2024-09-12 19:04] VITALS: O2SAT 100
[2024-09-12] MEDS: DEXMEDETOMIDINE 400 MCG/100 ML 100 ML IV SCH (19:28)
--- NOTE | 2024-09-12 19:36 | Discharge Summary ---
"Discharge Summary Admit Date: 09/04/24 Discharge Date: 09/12/24 Discharging Provider: Lorie Olivo MD Primary Care Provider: Nicola Hodge PA-C Discharge Facility Name: [facility] DIAGNOSES Discharge Diagnoses with Status of Each Condition: 1. Atrial fibrillation with RVR 2. Acute on chronic systolic heart failure with reduced ejection fraction 3. Acute respiratory failure with hypoxia 4. Pneumonia 5. Trichomonas 6. Lymphadenopathy with history of Hodgkin's lymphoma 7. Rheumatoid arthritis 8. Type 2 diabetes mellitus, with complication of proteinuria, without long- term use of insulin, controlled HPI History of Present Illness: 68-year-old female PMH significant for CVA X2, residual left-sided weakness, on Xarelto, diabetes mellitus on oral antidiabetics who presents with dizziness and fall. She did not lose consciousness, was noted to be hypotensive and tachycardic on EMS arrival. Denies fever, chills, chest pain, abdominal pain, urinary abnormalities. She has a POLST that states comfort measures only, but when interviewed she states that she would still want full treatment with the exception of CPR. In the ER, multiple modalities were attempted to control her heart rate including IV metoprolol, IV diltiazem, IV fluids, IV amiodarone, IV digoxin all without effect. Cardiology was contacted by ER provider, they recommended amiodarone drip and consideration for CTA chest. Hospitalist was contacted for admission for A-fib RVR refractory to multimodal therapy CONSULTS | PROCEDURES Consultations: General Surgery for bronchoscopy in the ICU, Anesthesia for intubation Procedures: 1. Head CT without acute intracranial pathology. 2. Chest x-ray done for right subclavian catheter showed in a satisfactory position. Follow-up for pneumonia or CHF eventually resulted in complete opacification of the left chest on September 11. ET tube in place. 3. Blood cultures without growth after 5 days. 4. Chest angio CT with left lower lobe pneumonia and parapneumonic effusion. Suspected lymphoma with enlarged supraclavicular fossa nodes, mediastinal lymphadenopathy and large intrapulmonary nodes. The left supraclavicular fossa node would be amenable to ultrasound-guided biopsy for confirmation. This patient has a history of Hodgkin's lymphoma. Multiple chest x-rays done after this to 5. RPR is negative. pending GC and Chlamydia swab. HOSPITAL COURSE Hospital Course: 1. Acute respiratory failure with hypoxia. due to afib w RVR induced CHF. She then had complete white out of her L lung today that we are attibuting to mucous plug. Anesthesia intubated after obtaining consent from the patient and then surgery did the flexible bronch. Mucous was dislodged but significant bronchial edema was noted. Post procedure CXR shows minimal improvment. I have started empiric therapy for possible hospital-acquired pneumonia. Cefepime. MRSA swab of the nose was negative so will not be doing vancomycin. And I am also calling [facility] again. I am asking for higher level of care, ICU bed. Dr Mulligan accepted her in transfer for ICU and Dr. Flores accepted her for Cardiolgoy Consult. Son was updated. 2. Atrial fibrillation with RVR. After many days of rapid heart rate that was not responding to our rate lowering drugs, and a toxic dig level of 4.1, the medications finally kicked in! She was slowed to 50 by the morning of the , with continued afib. Then converted to Sinus. For a brief moment she had a heart block with heart rate to 30. I transitioned her to MedSurg status since 09/07. Rate stayed controlled in the 70s. She was dig toxic on November 04 with a level of 4.1. She has not received any digoxin since that day. I checked reduced level 09/09 to monitor for toxicity and she is 0.9. I continued her amiodarone 200 mg daily, metoprolol 100 mg p.o. twice daily. She is also on a DOAC for anticoagulation. On the night of 09/09 she went back into A-fib with RVR. This put her into pulmonary edema again. I reached out to cardiology at [facility] 09/10. I spoke to cardiology transitional care manager and Dr. Montgomery was on-call. He really feels that there is nothing more he can offer. He just encourages me to increase her metoprolol. He gave me an example that he had a patient on the floor at [facility] at this moment of time that was metoprolol 100 mg p.o. 4 times daily as we spoke. He said do not be afraid to keep on pushing her rate lowering drugs. Even if she had a reduced ejection fraction, that I could use the Cardizem if it worked. He suggested I reload her on her digoxin. As such I have kept her on telemetry. I increased her metoprolol to 150 mg p.o. twice daily. I resumed her dig and reloaded her with 0.125 mg IV push x 3 recheck levels in today. . She was not stable for transfer to a penitentiary today. On the , I had to give her Lopressor 5 mg IV push, Cardizem 10 mg IV push. Increased her metoprolol to 200 mg p.o. twice daily. I would have momentary success with getting her into the 80s but then she bounces back up into the 130s. Her heart failure was worse with this. With the rapid heart rate and worsening respiratory status she was transferred to ICU. Today the events occurred as described above. Severe A-fib with RVR, severe shortness of breath. Momentarily responsive to the Cardizem drip but then had severe shortness of breath and I checked a chest x-ray which showed whiteout of the left lung. She was in NSR for a brief time, again with a heart block to 30s but did not require atropine. She is now status post a bedside flexible bronchoscopy. Removal of a mucous plug. Copious clear secretions from the ET tube. After the bronchoscopy her rate has come down to the 80s and 90s. So rate is controlled, now intubated, and I will focus on CHF if I cannot get her to higher level of care. And is at the bedside. I have updated him. Is amenable to her being transferred to [facility] if I can get a bed. 3. Acute on chronic systolic heart failure with reduced ejection fraction. Echocardiogram done September 05 shows overall left ventricular systolic function is mild to moderately impaired with an ejection fraction of 45%. Mild global hypokinesis of LV contractility which could be from the prolonged afib. I did point this out to the [facility]. Right ventricle size is normal. Right ventricle systolic function normal. No concerning valvular heart disease. Left atrium has moderate to severe increase in left atrial volume index. Moderate to severe right atrial enlargement. At home she is on amlodipine for high blood pressure, hydralazine twice daily for blood pressure (it is listed even though the dc med list from last admit says it was stopped), lisinopril 40 mg daily, metoprolol 100 mg p.o. twice daily and Januvia. For CHF, she is only on a beta-beti while here. The Januvia is a DPP 4 inhibitor but not an SGLT2. I started lasix 20 mg po the morning of the , but still so fluid overloaded by breath sounds, that I gave a one time IV lasix dose. Minimal urine output with that. Her fluid balance was +2858 on the fourth. +2386 on the fifth. +685 on the . I gave an extra dose of lasix IVP and -1085 on 09/09. On 09/10 she was -540. -973 on the and -2078 for today so far. Her BUN and creatinine have not gone up with my diuresis yet. I changed her lasix to 20 mg IVP bid on 09/10 and I am continuing that. All IV fluids have been stopped as of 09/10 since I switched her to oral antibiotics. No more maintenance IV fluids. No amiodarone drip. I cautioned her not to drink more than 1500 cc a day. In general, Treatment for congestive heart failure include core measure drugs that are now spironolactone, Lasix, Entresto, and SGLT2 inhibitor. Our formulary does not have the last 2 drugs. I would only be able to give her spironolactone and Lasix. I will resume her home lisinopril. I am not resuming the hydralazine or the amlodipine. 09/08 weight 104, 09/10 weight 101.5 09/11 weight 99 kg . Today she is 98.5 kg. BNP 09/10 1036, 09/11 1636, today 1333. In spite of my successful management of her weight and diuresis, the atrial fibrillation with her heart failure is not improving. I am asking for acceptance at [facility] for higher level of care. 4. Pneumonia in an elderly patient with congestive heart failure from reduced ejection fraction and A-fib that is uncontrolled. Blood cultures are negative. White cell count is normal. She completed 3 days of IV antibiotic therapy 09/07. I switched her over to Augmentin 09/08/24. She is to get a total of 5 days of antibiotic therapy and completed that on the according to pharmacy that day. Procalcitonin levels say that she is safe to transition to orals and complete therapy. Septococcus pneumonia antigen was negative in the urine. Legionella was negative. She has generalized weakness due to the ICU stay for a A-fib. It is a huge effort for her to get out of bed and do simple activity. She physical therapy has evaluated her and recommends SNF rehab therapy and she agrees to that. She was choiced by social work and the patient would like to go to [facility]. So the notices have been sent out. We are now await authorization from insurance company and acceptance from the nursing homes. [facility] has declined her. She is currently being evaluated by [facility]. However she cannot be discharged to the penitentiary until I can controlled her heart rate. 5. Trichomonas started on po flagyl on admission once it was verfied that she did not receive treatment for that. As I think about her, there is nothing to suggest that she has other STDs. There is no vaginal ulcers. No vaginal discharge. urine GC and chlamydia Has been ordered but is still pending. Her RPR is negative. Since it wasn't back today I spoke to Stuart in the lab. He said the urine was a send out and it will be 3-4 days AFTER the collection 09/09. Tomorrow will be 7 days of Flagyl. She received her last dose tonight via OG? 6. Lymphadenopathy. CT done for evaluation of pneumonia shows suspected lymphoma with enlarged supraclavicular fossa lymph nodes, mediastinal lymphadenopathy, and large intrapulmonary lymph nodes. The left supraclavicular fossa node would be amenable to ultrasound-guided biopsy for confirmation. She has a hx of lymphoma already tht was treated in [place]. I will make sure that this is emphasized in her dc summary for followup with her PCP OCTAVIO Jane. 7. Rheumatoid Arthritis If possible, I am asking her to bring in her own medications which includes the methotrexate and the monoclonal antibody injectable and give them to her as appropriate. However, after speaking to pharmacy, she theoreticaly has an infection we are treating and those meds are contraindicated so I had to cancel the orders. In the meantime, I used use nonsteroidals in the form of Toradol 15 mg IV push Q6 as needed for total of 5 doses to help with pain.She said that helped.I am trying to avoid opioids. The Kevzara would also be prohibitively expensive in the penitentiary. So I will not be giving it to her in the penitentiary. It is a 200 mg subcutaneous dose every 14 days. 8. Type 2 diabetes mellitus. With complication of proteinuria. Without long- term use of insulin. Controlled. At home she is on metformin and Januvia. I have not resumed those here. Her A1c was 5.8% on September 06. Her glucose has been only mildly elevated here. Occasionally she is 189, 202. But for the most part she is in the 140s, 160s. 150s. She is on sliding scale. She has been getting anywhere between 1 to 3 units with each meal depending on her glucose before eating. No change at this time. When she goes to the [facility] facility, I will not be resuming her Januvia either since it is also prohibitively expensive in that setting. She will go on sliding scale insulin. Discharge, blood pressure is 91/51 because of SVT. Heart rate is 104. She is intubated, had a ET tube leak and balloon has been reinsufflated. She has copious clear secretions from the ET tube. Coarse upper airway sounds with gurgling respirations. Vent rate set for 14 and she is on propofol and Precedex to control her sedation. Trying to avoid the propofol because of the hypotension. She varies between irregular rate with tachycardia, SVT with tachycardia, sinus in the 80s. Abdomen is soft, nontender, hypoactive bowel sounds. Extremities have mild edema not severe. Prior to intubation this patient was still alert enough to understand situation, severity of illness, and agreed to intubation for bronchoscopy and respiratory failure. She does have a DO NOT RESUSCITATE status if she does not have a pulse or a pressure. As such I do not think that intubation at this time to help her with her wide out lung is contraindicated. Greater than 30 minutes was spent correlating discharge This document was made in part using voice recognition software. While efforts are made to proofread this document, sound alike and grammatical errors may occur. ALLERGIES Allergies Allergy/AdvReac Type Severity Reaction Status Date / Time tramadol Allergy Severe Unknown Verified 09/02/24 10:20 MEDICATIONS Ambulatory Orders Medication Instructions Recorded Confirmed amlodipine 10 mg tablet 10 mg PO DAILY 08/19/24 09/04/24 atorvastatin 20 mg tablet 20 mg PO QPM 08/19/24 09/04/24 gabapentin 300 mg capsule 300 mg PO TID 08/19/24 09/05/24 hydralazine 25 mg tablet 25 mg PO BID 08/19/24 09/04/24 lisinopril 40 mg tablet 40 mg PO DAILY 08/19/24 09/04/24 metformin 1,000 mg tablet 1,000 mg PO BIDWM 08/19/24 09/04/24 methotrexate sodium 2.5 mg tablet 15 mg PO WE 08/19/24 09/04/24 metoprolol tartrate 100 mg tablet 100 mg PO BID 08/19/24 09/04/24 pantoprazole 40 mg tablet,delayed 40 mg PO DAILY 08/19/24 09/04/24 release rivaroxaban 10 mg tablet (Xarelto) 10 mg PO DAILY 08/19/24 09/04/24 sarilumab 200 mg/1.14 mL 200 mg subcut Q14D 08/19/24 09/04/24 subcutaneous syringe (Kevzara) sitagliptin phosphate 100 mg 100 mg PO DAILY 08/19/24 09/04/24 tablet (Januvia) ferrous sulfate 325 mg (65 mg 325 mg PO DAILY 08/20/24 09/02/24 iron) tablet (FeroSul) loratadine 10 mg tablet 10 mg PO DAILY 08/20/24 09/04/24 (Allerclear) magnesium oxide 400 mg PO DAILY #30 caps 08/20/24 09/04/24 omega 6-[id number]-neb-fish oil 100 2 cap PO DAILY 08/20/24 09/02/24 mg-160 mg-1,000 mg capsule (Fish Oil) vitamin B complex (Balanced B-50 1 tab PO DAILY 08/20/24 09/02/24 tablet) albuterol sulfate 90 mcg/actuation 1 puff inhalation QID PRN 08/30/24 09/04/24 aerosol inhaler (Ventolin HFA) shortness of breath or wheezing #6.7 grams doxycycline hyclate 100 mg capsule 100 mg PO BID #14 caps 08/30/24 09/04/24 LABS 09/12/24 06:00 09/12/24 06:00 Discharge Plan Discharge Patient Disposition: Transfer Acute Care Hosp Condition: Critical Prescriptions: No Action atorvastatin 20 mg tablet 20 mg PO QPM Patient Comments: TAKE 1 TABLET BY MOUTH EVERY DAY metoprolol tartrate 100 mg tablet 100 mg PO BID hydralazine 25 mg tablet 25 mg PO BID methotrexate sodium 2.5 mg tablet 15 mg PO WE Patient Comments: TAKE 6 TABLETS BY MOUTH 1 TIME A WEEK amlodipine 10 mg tablet 10 mg PO DAILY Patient Comments: TAKE 1 TABLET BY MOUTH EVERY DAY pantoprazole 40 mg tablet,delayed release (DR/EC) 40 mg PO DAILY metformin 1,000 mg tablet 1,000 mg PO BIDWM gabapentin 300 mg capsule 300 mg PO TID lisinopril 40 mg tablet 40 mg PO DAILY Patient Comments: TAKE 1 TABLET BY MOUTH EVERY DAY Januvia 100 mg tablet 100 mg PO DAILY Patient Comments: TAKE 1 TABLET BY MOUTH EVERY DAY Xarelto 10 mg tablet 10 mg PO DAILY Patient Comments: TAKE 1 TABLET BY MOUTH EVERY DAY Kevzara 200 mg/1.14 mL syringe 200 mg SUBCUT Q14D Patient Comments: INJECT 200 MG UNDER THE SKIN ONCE EVERY 2 WEEKS, TAKES ON FRIDAYS vitamin B complex [Balanced B-50] Tablet 1 tab PO DAILY loratadine [Allerclear] 10 mg tablet 10 mg PO DAILY ferrous sulfate [FeroSul] 325 mg (65 mg iron) tablet 325 mg PO DAILY Fish Oil 100-160-1,000 mg capsule 2 cap PO DAILY magnesium oxide 400 mg magnesium capsule 400 mg PO DAILY Qty: 30 0RF doxycycline hyclate 100 mg capsule 100 mg PO BID Qty: 14 0RF albuterol sulfate [Ventolin HFA] 90 mcg/actuation HFA aerosol inhaler 1 puff inhalation QID PRN (Reason: shortness of breath or wheezing) Qty: 6.7 0RF Print Language: Divehi Stand Alone Forms: PCP List"
[2024-09-12] MEDS: NOREPINEPHRINE/0.9 % NS 8 MG/250 ML BAG IV SCH (20:27)
[2024-09-12] MEDS ORDERED: APIXABAN 5 MG TABLET PO SCH (21:00)
[2024-09-12 21:15] VITALS: BP 113/73; TEMP 99.5
[2024-09-12] MEDS: ENOXAPARIN 100 MG/ML SYRINGE SUBQ SCH (21:17)
[2024-09-12] MEDS: METOPROLOL TARTRATE 50 MG TABLET PO SCH (21:18)
[2024-09-12] MEDS: METOPROLOL 5 MG/5 ML VIAL IVP ONE (21:18)
--- NOTE | 2024-09-13 14:09 | XRAY Report ---
PROCEDURE: XR Abdomen 1 V INDICATIONS: orogastric tube placement TECHNIQUE: One view of the abdomen acquired. COMPARISON: None. FINDINGS: Surgical changes and devices: An orogastric tube is present in the left upper quadrant of the abdomen , below the level of the diaphragm.. Bowel: Bowel gas pattern is normal. Soft tissues: No suspicious abdominal calcifications. Visualized solid organ contours appear normal in size. Bones: No suspicious bony lesions. Degenerative changes in the spine. IMPRESSION: Adequate placement of OG tube. Reviewed by: Jojo Vázquez MD on 09/13/2024 2:07 PM PST Approved by: Jojo Vázquez MD on 09/13/2024 2:07 PM PST Station ID: [id number]
== END 2024-09-12 21:13 | disposition short-term general hospital (02) | DRG 981 ==
LOC: ED 14:29 → ICU 14:29 → MS2 09-08 18:11 → ICU 09-09 19:47 → MS2 09-09 23:23 → ICU 09-11 20:59
PROVIDERS: ADMIT Nurse Practitioner Acute Care; ATTEND Nurse Practitioner Acute Care
DX: R32 Unspecified urinary incontinence; Z79.899 Other long term (current) drug therapy; Y95 Nosocomial condition; T17.890A Other foreign object in other parts of respiratory tract causing asphyxiation, initial encounter; E87.1 Hypo-osmolality and hyponatremia; I25.10 Atherosclerotic heart disease of native coronary artery without angina pectoris; E66.01 Morbid (severe) obesity due to excess calories; I48.91 Unspecified atrial fibrillation; Z79.01 Long term (current) use of anticoagulants; I95.9 Hypotension, unspecified; Z79.84 Long term (current) use of oral hypoglycemic drugs; R59.1 Generalized enlarged lymph nodes; J04.0 Acute laryngitis; S09.90XA Unspecified injury of head, initial encounter; Z90.710 Acquired absence of both cervix and uterus; E78.5 Hyperlipidemia, unspecified; I11.0 Hypertensive heart disease with heart failure; I50.23 Acute on chronic systolic (congestive) heart failure; I69.354 Hemiplegia and hemiparesis following cerebral infarction affecting left non-dominant side; Z85.71 Personal history of Hodgkin lymphoma; Z95.5 Presence of coronary angioplasty implant and graft; J18.9 Pneumonia, unspecified organism; A59.9 Trichomoniasis, unspecified; R80.9 Proteinuria, unspecified; F17.210 Nicotine dependence, cigarettes, uncomplicated; R45.1 Restlessness and agitation; J96.01 Acute respiratory failure with hypoxia; M06.9 Rheumatoid arthritis, unspecified; E11.9 Type 2 diabetes mellitus without complications; H91.90 Unspecified hearing loss, unspecified ear; Z66 Do not resuscitate; E11.69 Type 2 diabetes mellitus with other specified complication; W19.XXXA Unspecified fall, initial encounter; Z63.5 Disruption of family by separation and divorce; Z68.33 Body mass index [BMI] 33.0-33.9, adult